=== PATIENT | male | born 1955 | race Caucasian/White ===

== ENCOUNTER 2018-10-20 17:37 | Inpatient (IN) | payer MEDICARE ==
[2018-10-20] VITALS (10 sets, daily range): BP systolic 80–103; BP diastolic 61–74
[~2018-10-20] VITALS: Ht 182.9 cm; Wt 80.4 kg
[~2018-10-20 17:37] MED LIST: AC325T PO; ALPR.25T PO; ASP81TEC PO; CARB1TAB6 PO; CTLP20T PO; DICL100G20 TP; DNPZ5T PO; FOLI1TAB24 PO; GBPN400C PO; LEVO200T30 PO; LEVO50TA PO; LVT.025T PO; LVT.05T PO; LVT.1T PO; MAGN400C PO; MEMA10TA PO; METR500T PO; MTP25TSR PO; MULT1TAB53 PO; Multivitamins/Minerals Therap PO; NAPR250T34 PO; OMEG-12 PO; PROP10DR2 OP; RPN.25T PO; SILD50TA PO; TAMS0.4C98 PO; THIA100T80 PO; TRAM50TA2 PO
[2018-10-20] MEDS: NS IV 1000 ML 1,000 ML IV SCH ×3 (17:40→22:32)
--- NOTE | 2018-10-20 17:40 | NUR ---
This nurse and tech have tried multiple times to get an EKG on pt unable to get a reading.
--- OUTSIDE RECORDS SUMMARY | 2018-10-20 17:41 | XMS REPORT ---
Author Author GUTIERREZ WOODSON Organization [employer] Address Unknown Phone Unavailable Care Team Providers Care Dictionary Editor Name Role Phone GUTIERREZ WOODSON CP Unavailable Allergies No Known Allergies Problems Problem Type Condition Code Onset Dates Condition Status Problem Hypothyroidism, unspecified type E03.9 Active Problem Alcoholism F10.20 Active Problem Alcoholic peripheral neuropathy G62.1 Active Medications No Known Medications Results No Known Results Summary Purpose [employer] Submission
--- OUTSIDE RECORDS SUMMARY | 2018-10-20 17:41 | XMS REPORT ---
Author Author GUTIERREZ WOODSON [facility] Address [address] [place] [address] Care Team Providers Care Capping Machine Operator Name Role Phone GUTIERREZ WOODSON Unavailable PROBLEMS Unknown Problems ALLERGIES Unknown Allergies SOCIAL HISTORY No smoking Hx information available PLAN OF CARE VITAL SIGNS MEDICATIONS Unknown Medications RESULTS No Results PROCEDURES No Known procedures IMMUNIZATIONS No Known Immunizations
--- OUTSIDE RECORDS SUMMARY | 2018-10-20 17:41 | XMS REPORT ---
Author Author GUTIERREZ WOODSON Organization [employer] Address Unknown Phone Unavailable Care Team Providers Care Diesel Mechanic Farm Name Role Phone GUTIERREZ WOODSON CP Unavailable Allergies No Known Allergies Problems Problem Type Condition Code Onset Dates Condition Status Problem Hypothyroidism, unspecified type E03.9 Active Problem Alcoholism F10.20 Active Problem Alcoholic peripheral neuropathy G62.1 Active Assessment Alcoholism F10.20 Active Assessment Alcoholic peripheral neuropathy G62.1 Active Assessment Hypothyroidism, unspecified type E03.9 Active Medications No Known Medications Procedures Procedure Coding System Code Date Stable Visit (10 minutes) CPT-[id number] Jul 10, 2016 Results No Known Results Summary Purpose [employer] Submission
--- OUTSIDE RECORDS SUMMARY | 2018-10-20 17:41 | XMS REPORT ---
Author Author SANJAY ENRIQUEZ [facility] Address [address] [place] [address] Care Team Providers Care Warehouse Incentive Selector Name Role Phone SANJAY ENRIQUEZ Unavailable PROBLEMS Unknown Problems ALLERGIES Unknown Allergies SOCIAL HISTORY No smoking Hx information available PLAN OF CARE VITAL SIGNS MEDICATIONS Unknown Medications RESULTS No Results PROCEDURES No Known procedures IMMUNIZATIONS No Known Immunizations
--- OUTSIDE RECORDS SUMMARY | 2018-10-20 17:41 | XMS REPORT ---
Author Author GUTIERREZ WOODSON Organization [employer] Address Unknown Phone Unavailable Care Team Providers Care Commercial Artist Name Role Phone GUTIERREZ WOODSON CP Unavailable Allergies No Known Allergies Problems Problem Type Condition Code Onset Dates Condition Status Problem Hypothyroidism, unspecified type E03.9 Active Problem Alcoholism F10.20 Active Problem Alcoholic peripheral neuropathy G62.1 Active Medications No Known Medications Results No Known Results Summary Purpose [employer] Submission
--- OUTSIDE RECORDS SUMMARY | 2018-10-20 17:42 | XMS REPORT | Continuity of Care Document ---
Author Author [facility] Address Unknown Phone Unavailable Allergies Active Description Code Type Severity Reaction Onset Reported/Identified Relationship to Patient Clinical Status Yes Celexa Drug Allergy 06/11/2011 Yes Celexa Drug Allergy N/A N/A 06/11/2011 Yes No Known Drug Allergies [id number] Drug Allergy Unknown N/A 09/17/2012 Medications There is no data. Problems Date Dx Coded Attending Type Code Diagnosis Diagnosed By 05/01/2008 244.9 Hypothyroidism Subclinical 05/01/2008 244.9 Hypothyroidism Subclinical 05/01/2008 244.9 Hypothyroidism Subclinical 05/01/2008 GUTIERREZ WOODSON MD 244.9 Hypothyroidism Subclinical 05/01/2008 GERDA NIETO APRN 244.9 Hypothyroidism Subclinical 05/01/2008 GERDA NIETO APRN 244.9 Hypothyroidism Subclinical 05/01/2008 244.9 Hypothyroidism Subclinical 12/27/2008 302.72 Male Erectile Disorder 12/27/2008 302.72 Male Erectile Disorder 12/27/2008 302.72 Male Erectile Disorder 12/27/2008 GUTIERREZ WOODSON MD 302.72 Male Erectile Disorder 12/27/2008 GERDA NIETO APRN 302.72 Male Erectile Disorder 12/27/2008 GERDA NIETO APRN 302.72 Male Erectile Disorder 12/27/2008 302.72 Male Erectile Disorder 03/26/2011 303.91 Other And Unspecified Alcohol Dependence Continuous Drinking Behavior 03/26/2011 305.1 Nondependent Tobacco Use Disorder 03/26/2011 724.5 BACK PAIN, GENERAL 03/26/2011 303.91 Other And Unspecified Alcohol Dependence Continuous Drinking Behavior 03/26/2011 305.1 Nondependent Tobacco Use Disorder 03/26/2011 724.5 BACK PAIN, GENERAL 03/26/2011 303.91 Other And Unspecified Alcohol Dependence Continuous Drinking Behavior 03/26/2011 305.1 Nondependent Tobacco Use Disorder 03/26/2011 724.5 BACK PAIN, GENERAL 03/26/2011 GUTIERREZ WOODSON MD 303.91 Other And Unspecified Alcohol Dependence Continuous Drinking Behavior 03/26/2011 GUTIERREZ WOODSON MD 305.1 Nondependent Tobacco Use Disorder 03/26/2011 GUTIERREZ WOODSON MD 724.5 BACK PAIN, GENERAL 03/26/2011 EMILIA NORMAN, GERDA R 303.91 Other And Unspecified Alcohol Dependence Continuous Drinking Behavior 03/26/2011 EMILIA NORMAN, GERDA R 305.1 Nondependent Tobacco Use Disorder 03/26/2011 EMILIA NORMAN GERDA R 724.5 BACK PAIN, GENERAL 03/26/2011 EMILIA NORMAN, GERDA R 303.91 Other And Unspecified Alcohol Dependence Continuous Drinking Behavior 03/26/2011 EMILIA NORMAN GERDA R 305.1 Nondependent Tobacco Use Disorder 03/26/2011 EMILIA NORMAN GERDA R 724.5 BACK PAIN, GENERAL 03/26/2011 303.91 Other And Unspecified Alcohol Dependence Continuous Drinking Behavior 03/26/2011 305.1 Nondependent Tobacco Use Disorder 03/26/2011 724.5 BACK PAIN, GENERAL 04/17/2011 311 MO DEPRESS NOS 04/17/2011 790.6 Abnormal Lft ( liver Function Test) 04/17/2011 311 MO DEPRESS NOS 04/17/2011 790.6 Abnormal Lft ( liver Function Test) 04/17/2011 311 MO DEPRESS NOS 04/17/2011 790.6 Abnormal Lft ( liver Function Test) 04/17/2011 GUTIERREZ WOODSON MD 311 MO DEPRESS NOS 04/17/2011 GUTIERREZ WOODSON MD 790.6 Abnormal Lft (liver Function Test) 04/17/2011 EMILIA NORMAN GERDA R 311 MO DEPRESS NOS 04/17/2011 EMILIA NORMAN GERDA R 790.6 Abnormal Lft (liver Function Test) 04/17/2011 EMILIA NORMAN GERDA R 311 MO DEPRESS NOS 04/17/2011 EMILIA NORMAN GERDA R 790.6 Abnormal Lft (liver Function Test) 04/17/2011 311 MO DEPRESS NOS 04/17/2011 790.6 Abnormal Lft ( liver Function Test) 05/10/2011 296.90 MOOD DISORDER 05/10/2011 296.90 MOOD DISORDER 05/10/2011 296.90 MOOD DISORDER 05/10/2011 GUTIERREZ WOODSON MD 296.90 MOOD DISORDER 05/10/2011 MARGARET NIETO APRNINA R 296.90 MOOD DISORDER 05/10/2011 EMILIA NORMAN, GERDA R 296.90 MOOD DISORDER 05/10/2011 296.90 MOOD DISORDER 06/11/2011 458.0 Orthostatic Hypotension 06/11/2011 458.0 Orthostatic Hypotension 06/11/2011 458.0 Orthostatic Hypotension 06/11/2011 GUTIERREZ WOODSON MD 458.0 Orthostatic Hypotension 06/11/2011 GERDA NIETO APRN R 458.0 Orthostatic Hypotension 06/11/2011 MARGARET NIETO APRNINA R 458.0 Orthostatic Hypotension 06/11/2011 458.0 Orthostatic Hypotension 08/13/2011 722.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 08/13/2011 722.6 Degeneration Of Intervertebral Disc Site Unspecified 08/13/2011 722.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 08/13/2011 722.6 Degeneration Of Intervertebral Disc Site Unspecified 08/13/2011 722.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 08/13/2011 722.6 Degeneration Of Intervertebral Disc Site Unspecified 08/13/2011 GUTIERREZ WOODSON MD 722.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 08/13/2011 GUTIERREZ WOODSON MD 722.6 Degeneration Of Intervertebral Disc Site Unspecified 08/13/2011 EMILIA NORMAN GERDA R 722.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 08/13/2011 EMILIA NORMAN GERDA R 722.6 Degeneration Of Intervertebral Disc Site Unspecified 08/13/2011 MARGARET NIETO APRNINA R 722.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 08/13/2011 EMILIA NORMAN GERDA R 722.6 Degeneration Of Intervertebral Disc Site Unspecified 08/13/2011 722.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 08/13/2011 722.6 Degeneration Of Intervertebral Disc Site Unspecified 09/16/2011 V68.1 Issue Of Repeat Prescriptions 09/16/2011 V68.1 Issue Of Repeat Prescriptions 09/16/2011 V68.1 Issue Of Repeat Prescriptions 09/16/2011 GUTIERREZ WOODSON MD V68.1 Issue Of Repeat Prescriptions 09/16/2011 GERDA NIETO APRN R V68.1 Issue Of Repeat Prescriptions 09/16/2011 GERDA NIETO APRN R V68.1 Issue Of Repeat Prescriptions 09/16/2011 V68.1 Issue Of Repeat Prescriptions 03/09/2012 719.46 Pain In Joint Involving Lower Leg 03/09/2012 719.46 Pain In Joint Involving Lower Leg 03/09/2012 719.46 Pain In Joint Involving Lower Leg 03/09/2012 GUTIERREZ WOODSON MD 719.46 Pain In Joint Involving Lower Leg 03/09/2012 GERDA NIETO APRN 719.46 Pain In Joint Involving Lower Leg 03/09/2012 GERDA NIETO APRN 719.46 Pain In Joint Involving Lower Leg 03/09/2012 719.46 Pain In Joint Involving Lower Leg 06/22/2012 244.9 UNSPECIFIED ACQUIRED HYPOTHYROIDISM 06/22/2012 372.30 CONJUNCTIVITIS UNSPECIFIED 06/22/2012 244.9 UNSPECIFIED ACQUIRED HYPOTHYROIDISM 06/22/2012 372.30 CONJUNCTIVITIS UNSPECIFIED 06/22/2012 244.9 UNSPECIFIED ACQUIRED HYPOTHYROIDISM 06/22/2012 372.30 CONJUNCTIVITIS UNSPECIFIED 06/22/2012 GUTIERREZ WOODSON MD 244.9 UNSPECIFIED ACQUIRED HYPOTHYROIDISM 06/22/2012 GUTIERREZ WOODSON MD 372.30 CONJUNCTIVITIS UNSPECIFIED 06/22/2012 GERDA NIETO APRN 244.9 UNSPECIFIED ACQUIRED HYPOTHYROIDISM 06/22/2012 GERDA NIETO APRN 372.30 CONJUNCTIVITIS UNSPECIFIED 06/22/2012 GERDA NIETO APRN 244.9 UNSPECIFIED ACQUIRED HYPOTHYROIDISM 06/22/2012 GERDA NIETO APRN 372.30 CONJUNCTIVITIS UNSPECIFIED 06/22/2012 244.9 UNSPECIFIED ACQUIRED HYPOTHYROIDISM 06/22/2012 372.30 CONJUNCTIVITIS UNSPECIFIED 09/22/2012 Ot 008.45 INTESTINAL INFECTION DUE TO CLOSTRIDIUM 09/22/2012 Ot 244.9 HYPOTHYROIDISM NOS 09/22/2012 Ot 275.2 DIS MAGNESIUM METABOLISM 09/22/2012 Ot 276.2 ACIDOSIS 09/22/2012 Ot 276.51 DEHYDRATION 09/22/2012 Ot 276.8 HYPOPOTASSEMIA 09/22/2012 Ot 284.19 OTHER PANCYTOPENIA 09/22/2012 Ot 305.1 TOBACCO USE DISORDER 09/22/2012 Ot 790.6 ABN BLOOD CHEMISTRY NEC 10/25/2012 Ot 244.9 HYPOTHYROIDISM NOS 10/25/2012 Ot 275.2 DIS MAGNESIUM METABOLISM 10/25/2012 Ot 276.8 HYPOPOTASSEMIA 10/25/2012 Ot 285.9 ANEMIA NOS 10/25/2012 Ot 458.0 ORTHOSTATIC HYPOTENSION 10/25/2012 Ot 593.89 RENAL URETERAL DIS NEC 10/25/2012 Ot 733.19 PATHOLOGIC FRACTURE, SITE NEC 10/25/2012 Ot 780.79 OTH MALAISE FATIGUE 11/03/2012 Ot 244.9 HYPOTHYROIDISM NOS 11/03/2012 Ot 275.2 DIS MAGNESIUM METABOLISM 11/03/2012 Ot 276.1 HYPOSMOLALITY 11/03/2012 Ot 276.8 HYPOPOTASSEMIA 11/03/2012 Ot 285.9 ANEMIA NOS 11/03/2012 Ot 305.00 ALCOHOL ABUSE-UNSPEC 11/03/2012 Ot 799.3 DEBILITY NOS 11/03/2012 Ot V15.88 HISTORY OF FALL 11/03/2012 Ot V54.29 [facility] PATHOLOGIC FX OTHER KARELY 11/03/2012 Ot V57.1 PHYSICAL THERAPY NEC 11/03/2012 Ot V57.21 ENCOUNTER FOR OCCUPATIONAL THERAPY 01/08/2013 Ot 303.00 AC ALCOHOL INTOX-UNSPEC 01/08/2013 Ot V58.69 OTH MED,LT, CURRENT USE 03/31/2013 599.70 HEMATURIA 03/31/2013 728.87 WEAKNESS 03/31/2013 783.21 WEIGHT LOSS 03/31/2013 799.02 HYPOXIA 03/31/2013 GUTIERREZ WOODSON MD 599.70 HEMATURIA 03/31/2013 GUTIERREZ WOODSON MD 728.87 WEAKNESS 03/31/2013 GUTIERREZ WOODSON MD 783.21 WEIGHT LOSS 03/31/2013 GUTIERREZ WOODSON MD 799.02 HYPOXIA 03/31/2013 GERDA NIETO APRN R 599.70 HEMATURIA 03/31/2013 EMILIA NORMAN GERDA R 728.87 WEAKNESS 03/31/2013 EMILIA NORMAN GERDA R 783.21 WEIGHT LOSS 03/31/2013 MARGARET NIETO APRNINA R 799.02 HYPOXIA 03/31/2013 GERDA NIETO APRN R 599.70 HEMATURIA 03/31/2013 EMILIA NORMAN GERDA R 728.87 WEAKNESS 03/31/2013 GERDA NIETO APRN R 783.21 WEIGHT LOSS 03/31/2013 GERDA NIETO APRN R 799.02 HYPOXIA 04/06/2013 GUTIERREZ WOODSON MD Ot 244.9 HYPOTHYROIDISM NOS 04/06/2013 GUTIERREZ WOODSON MD Ot 276.1 HYPOSMOLALITY 04/06/2013 GUTIERREZ WOODSON MD Ot 276.8 HYPOPOTASSEMIA 04/06/2013 GUTIERREZ WOODSON MD Ot 303.90 ALCOH DEP NEC/NOS-UNSPEC 04/06/2013 GUTIERREZ WOODSON MD Ot 357.5 ALCOHOLIC POLYNEUROPATHY 04/14/2013 357.5 ALCOHOLIC POLYNEUROPATHY 04/14/2013 GUTIERREZ WOODSON MD 357.5 ALCOHOLIC POLYNEUROPATHY 04/14/[address] COMMISSIONER, GERDA R 357.5 ALCOHOLIC POLYNEUROPATHY 04/14/[address] COMMISSIONER, GERDA R 357.5 ALCOHOLIC POLYNEUROPATHY 07/07/2016 Ot 305.1 TOBACCO USE DISORDER 07/07/2016 Ot 722.10 LUMBAR DISC DISPLACEMENT 07/07/2016 Ot 722.52 LUMB/ LUMBOSAC DISC DEGEN 07/07/2016 Ot 729.5 PAIN IN LIMB 07/07/2016 Ot 785.9 CARDIOVAS SYS SYMP NEC 07/07/2016 SANJAY BENAVIDES MD Ot D61.818 OTHER PANCYTOPENIA 07/07/2016 SANJAY BENAVIDES MD Ot E03.9 HYPOTHYROIDISM, UNSPECIFIED 07/07/2016 SANJAY BENAVIDES MD Ot 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 07/07/2016 SANJAY BENAVIDES MD Ot F10.20 ALCOHOL DEPENDENCE, UNCOMPLICATED 07/07/2016 SANJAY BENAVIDES MD Ot F10.239 ALCOHOL DEPENDENCE WITH WITHDRAWAL, UNSP 07/07/2016 SANJAY BENAVIDES MD Ot F17.210 NICOTINE DEPENDENCE, CIGARETTES, UNCOMPL 07/07/2016 SANJAY BENAVIDES MD Ot K70.9 ALCOHOLIC LIVER DISEASE, UNSPECIFIED 07/07/2016 SANJAY BENAVIDES MD Ot N40.1 ENLARGED PROSTATE WITH LOWER URINARY TRA 07/07/2016 SANJAY BENAVIDES MD Ot R33.8 OTHER RETENTION OF URINE 07/07/2016 SANJAY BENAVIDES MD Ot R64 CACHEXIA 07/07/2016 SANJAY BENAVIDES MD Ot S40.021A CONTUSION OF RIGHT UPPER ARM, INITIAL EN 07/07/2016 SANJAY BENAVIDES MD Ot S40.022A CONTUSION OF LEFT UPPER ARM, INITIAL ENC 07/07/2016 SANJAY BENAVIDES MD Ot S60.221A CONTUSION OF RIGHT HAND, INITIAL ENCOUNT 07/07/2016 SANJAY BENAVIDES MD Ot S60.222A CONTUSION OF LEFT HAND, INITIAL ENCOUNTE 07/07/2016 SANJAY BENAVIDES MD Ot W19.XXXA UNSPECIFIED FALL, INITIAL ENCOUNTER 07/07/2016 SANJAY BENAVIDES MD Ot Y92.[address] [facility] NON-INSTITUTIONAL RESI Procedures Code Description [place] [address] ROUTINE VENIPUNCTURE 08/01/2013 34808 CMP 08/02/2013 7923630 GFR CALC (RESULT ONLY) 08/02/2013 04224 TSH 08/02/2013 57637 ROUTINE VENIPUNCTURE 04/11/2014 [id number] GFR CALC (RESULT ONLY) 04/12/2014 62873 BMP 04/12/2014 42488 T4 FREE 04/12/2014 57126 TSH 04/12/2014 19261 T3 TOTAL 04/12/2014 Results Test Result Range Complete blood count (CBC) with automated white blood cell (WBC) differential - 07/03/16 19:21 Blood leukocytes automated count (number/volume) 4.1 10*3/uL 4.3-11.0 Blood erythrocytes automated count (number/volume) 2.32 10*6/uL 4.35-5.85 Venous blood hemoglobin measurement (mass/volume) 7.5 g/dL 13.3-17.7 Blood hematocrit (volume fraction) 22 % 40-54 Automated erythrocyte mean corpuscular volume 94 [foz_us] 80-99 Automated erythrocyte mean corpuscular hemoglobin (mass per erythrocyte) 32 pg 25-34 Automated erythrocyte mean corpuscular hemoglobin concentration measurement ( mass/volume) 35 g/dL 32-36 Automated erythrocyte distribution width ratio 17.4 % 10.0-14.5 Automated blood platelet count (count/volume) 115 10*3/uL 130-400 Automated blood platelet mean volume measurement 9.4 [foz_us] 7.4-10.4 Automated blood neutrophils/100 leukocytes 42 % 42-75 Automated blood lymphocytes/100 leukocytes 49 % 12-44 Blood monocytes/100 leukocytes 5 % 0-12 Automated blood eosinophils/100 leukocytes 3 % 0-10 Automated blood basophils/100 leukocytes 1 % 0-10 Blood neutrophils automated count (number/volume) 1.7 10*3 1.8-7.8 Blood lymphocytes automated count (number/volume) 2.0 10*3 1.0-4.0 Blood monocytes automated count (number/volume) 0.2 10*3 0.0-1.0 Automated eosinophil count 0.1 10*3/uL 0.0-0.3 Automated blood basophil count (count/volume) 0.0 10*3/uL 0.0-0.1 PT panel in platelet poor plasma by coagulation assay - 07/03/16 19:21 Prothrombin time (PT) in platelet poor plasma by coagulation assay 13.5 s 12.2-14.7 INR in platelet poor plasma or blood by coagulation assay 1.1 0.8-1.4 Activated partial thromboplastin time (aPTT) in platelet poor plasma bycoagulation assay - 07/03/16 19:21 Activated partial thromboplastin time (aPTT) in platelet poor plasma bycoagulation assay 37 s 24-35 Comprehensive metabolic panel - 07/03/16 19:21 Serum or plasma sodium measurement (moles/volume) 134 mmol/L 135-145 Serum or plasma potassium measurement (moles/volume) 4.0 mmol/L 3.6-5.0 Serum or plasma chloride measurement (moles/volume) 95 mmol/L 98-107 Carbon dioxide 21 mmol/L 21-32 Serum or plasma anion gap determination (moles/volume) 18 mmol/L 5-14 Serum or plasma urea nitrogen measurement (mass/volume) 15 mg/dL 7-18 Serum or plasma creatinine measurement (mass/volume) 1.19 mg/dL 0.60-1.30 Serum or plasma urea nitrogen/creatinine mass ratio 13 NRG Serum or plasma creatinine measurement with calculation of estimated glomerular filtration rate > NRG Serum or plasma glucose measurement (mass/volume) 86 mg/dL 70-105 Serum or plasma calcium measurement (mass/volume) 8.7 mg/dL 8.5-10.1 Serum or plasma total bilirubin measurement (mass/volume) 1.8 mg/dL 0.1-1.0 Serum or plasma alkaline phosphatase measurement (enzymatic activity/volume) 62 U/L 40-136 Serum or plasma aspartate aminotransferase measurement (enzymatic activity/ volume) 30 U/L 5-34 Serum or plasma alanine aminotransferase measurement (enzymatic activity/volume ) 11 U/L 0-55 Serum or plasma protein measurement (mass/volume) 7.0 g/dL 6.4-8.2 Serum or plasma albumin measurement (mass/volume) 4.3 g/dL 3.2-4.5 Magnesium - 07/03/16 19:21 Magnesium 1.8 mg/dL 1.8-2.4 Serum or plasma creatine kinase measurement (enzymatic activity/volume) - 07/03 19:21 Serum or plasma creatine kinase measurement (enzymatic activity/volume) 221 U/L 30-200 Serum or plasma amylase measurement (enzymatic activity/volume) - 07/03/16 19: 21 Serum or plasma amylase measurement (enzymatic activity/volume) 120 U/L 25-125 Lipase - 07/03/16 19:21 Lipase 38 U/L 8-78 Serum or plasma ethanol measurement (mass/volume) - 07/03/16 19:21 Serum or plasma ethanol measurement (mass/volume) 10 mg/dL <10 Serum or plasma creatine kinase MB measurement (enzymatic activity/volume) - 19:21 Serum or plasma creatine kinase MB measurement (enzymatic activity/volume) 2.5 ng/mL <6.6 Serum or plasma troponin i.cardiac measurement (mass/volume) - 07/03/16 19:21 Serum or plasma troponin i.cardiac measurement (mass/volume) < ng/ mL <0.30 Serum or plasma thyroxine (T4) free measurement (mass/volume) - 07/03/16 19:21 Serum or plasma thyroxine (T4) free measurement (mass/volume) < ng/ dL 0.70-1.48 Serum or plasma thyrotropin measurement by detection limit <=0.05 miu/l (units/ volume) - 07/03/16 19:21 Serum or plasma thyrotropin measurement by detection limit <=0.05 miu/l (units/ volume) 176.14 u[iU]/mL 0.35-4.94 RED CELLS LEUKO REDUCED AS1 - 07/03/16 20:52 RED CELLS LEUKO REDUCED AS1 NOT AVAILABLE NRG Blood type T Indirect antibody screen panel - 07/03/16 20:52 ABO+Rh group AP NRG Transfusion band number [id number] NRG Blood group antibody screen NEGATIVE NRG Urine drug screening test - 07/03/16 21:01 Urine phencyclidine detection by screening method NEGATIVE NEGATIVE Urine benzodiazepines detection by screening method NEGATIVE NEGATIVE Urine cocaine detection NEGATIVE NEGATIVE Urine amphetamines detection by screening method NEGATIVE NEGATIVE Urine methamphetamine detection by screening method NEGATIVE NEGATIVE Urine cannabinoids detection by screening method NEGATIVE NEGATIVE Urine opiates detection by screening method NEGATIVE NEGATIVE Urine barbiturates detection NEGATIVE NEGATIVE Screening urine tricyclic antidepressants detection NEGATIVE NEGATIVE Urine methadone detection by screening method NEGATIVE NEGATIVE Urine oxycodone detection NEGATIVE NEGATIVE Urine propoxyphene detection NEGATIVE NEGATIVE Urine buprenophrine screen NEGATIVE NEGATIVE Complete urinalysis with reflex to culture - 07/03/16 21:01 Urine color determination TAJ NRG Urine clarity determination CLEAR NRG Urine pH measurement by test strip 6 5-9 Specific gravity of urine by test strip 1.020 1.016- 1.022 Urine protein assay by test strip, semi-quantitative 1+ NEGATIVE Urine glucose detection by automated test strip NEGATIVE NEGATIVE Erythrocytes detection in urine sediment by light microscopy 2+ NEGATIVE Urine ketones detection by automated test strip 2+ NEGATIVE Urine nitrite detection by test strip POSITIVE NEGATIVE Urine total bilirubin detection by test strip 2+ NEGATIVE Urine urobilinogen measurement by automated test strip (mass/volume) 8 mg/dL NORMAL Urine leukocyte esterase detection by dipstick 1+ NEGATIVE Automated urine sediment erythrocyte count by microscopy (number/high power field) [HPF] NRG Automated urine sediment leukocyte count by microscopy (number/high power field ) [HPF] NRG Bacteria detection in urine sediment by light microscopy NEGATIVE NRG Crystals detection in urine sediment by light microscopy NONE NRG Casts detection in urine sediment by light microscopy PRESENT NRG Mucus detection in urine sediment by light microscopy MODERATE NRG Complete urinalysis with reflex to culture YES NRG Hyaline casts detection in urine sediment by light microscopy 5-10 NRG Bacterial urine culture - 07/03/16 21:01 Bacterial urine culture NG NRG Complete blood count (CBC) with automated white blood cell (WBC) differential - 07/04/16 06:52 Blood leukocytes automated count (number/volume) 2.8 10*3/uL 4.3-11.0 Blood erythrocytes automated count (number/volume) 2.92 10*6/uL 4.35-5.85 Venous blood hemoglobin measurement (mass/volume) 9.3 g/dL 13.3-17.7 Blood hematocrit (volume fraction) 26 % 40-54 Automated erythrocyte mean corpuscular volume 89 [foz_us] 80-99 Automated erythrocyte mean corpuscular hemoglobin (mass per erythrocyte) 32 pg 25-34 Automated erythrocyte mean corpuscular hemoglobin concentration measurement ( mass/volume) 36 g/dL 32-36 Automated erythrocyte distribution width ratio 17.6 % 10.0-14.5 Automated blood platelet count (count/volume) 85 10*3/uL 130-400 Automated blood platelet mean volume measurement 10.1 [foz_us] 7.4-10.4 Automated blood neutrophils/100 leukocytes 42 % 42-75 Automated blood lymphocytes/100 leukocytes 50 % 12-44 Blood monocytes/100 leukocytes 5 % 0-12 Automated blood eosinophils/100 leukocytes 3 % 0-10 Automated blood basophils/100 leukocytes 1 % 0-10 Blood neutrophils automated count (number/volume) 1.2 10*3 1.8-7.8 Blood lymphocytes automated count (number/volume) 1.4 10*3 1.0-4.0 Blood monocytes automated count (number/volume) 0.1 10*3 0.0-1.0 Automated eosinophil count 0.1 10*3/uL 0.0-0.3 Automated blood basophil count (count/volume) 0.0 10*3/uL 0.0-0.1 Comprehensive metabolic panel - 07/04/16 06:52 Serum or plasma sodium measurement (moles/volume) 134 mmol/L 135-145 Serum or plasma potassium measurement (moles/volume) 3.4 mmol/L 3.6-5.0 Serum or plasma chloride measurement (moles/volume) 100 mmol/L 98-107 Carbon dioxide 20 mmol/L 21-32 Serum or plasma anion gap determination (moles/volume) 14 mmol/L 5-14 Serum or plasma urea nitrogen measurement (mass/volume) 14 mg/dL 7-18 Serum or plasma creatinine measurement (mass/volume) 1.03 mg/dL 0.60-1.30 Serum or plasma urea nitrogen/creatinine mass ratio 14 NRG Serum or plasma creatinine measurement with calculation of estimated glomerular filtration rate > NRG Serum or plasma glucose measurement (mass/volume) 108 mg/dL 70-105 Serum or plasma calcium measurement (mass/volume) 7.9 mg/dL 8.5-10.1 Serum or plasma total bilirubin measurement (mass/volume) 2.2 mg/dL 0.1-1.0 Serum or plasma alkaline phosphatase measurement (enzymatic activity/volume) 53 U/L 40-136 Serum or plasma aspartate aminotransferase measurement (enzymatic activity/ volume) 26 U/L 5-34 Serum or plasma alanine aminotransferase measurement (enzymatic activity/volume ) 9 U/L 0-55 Serum or plasma protein measurement (mass/volume) 6.1 g/dL 6.4-8.2 Serum or plasma albumin measurement (mass/volume) 3.7 g/dL 3.2-4.5 PT panel in platelet poor plasma by coagulation assay - 07/05/16 12:54 Prothrombin time (PT) in platelet poor plasma by coagulation assay 13.9 s 12.2-14.7 INR in platelet poor plasma or blood by coagulation assay 1.1 0.8-1.4 Activated partial thromboplastin time (aPTT) in platelet poor plasma bycoagulation assay - 07/05/16 12:54 Activated partial thromboplastin time (aPTT) in platelet poor plasma bycoagulation assay 41 s 24-35 Human immunodeficiency virus (HIV) type 1 and 2 antibody detection - 07/05/16 12:54 Serum HIV 1+2 antibody detection by immunoblot Non-Reactive Non-Reactive Interpretation of HIV-1 and HIV-2 antibody assay See Footnote [facility] Automated blood complete blood count (hemogram) panel - 07/06/16 05:05 Blood leukocytes automated count (number/volume) 2.6 10*3/uL 4.3-11.0 Blood erythrocytes automated count (number/volume) 2.46 10*6/uL 4.35-5.85 Venous blood hemoglobin measurement (mass/volume) 7.8 g/dL 13.3-17.7 Blood hematocrit (volume fraction) 22 % 40-54 Automated erythrocyte mean corpuscular volume 87 [foz_us] 80-99 Automated erythrocyte mean corpuscular hemoglobin (mass per erythrocyte) 32 pg 25-34 Automated erythrocyte mean corpuscular hemoglobin concentration measurement ( mass/volume) 36 g/dL 32-36 Automated erythrocyte distribution width ratio 17.6 % 10.0-14.5 Automated blood platelet count (count/volume) 53 10*3/uL 130-400 Automated blood platelet mean volume measurement 9.1 [foz_us] 7.4-10.4 [id number] - 07/06/16 05:05 [id number] SPECIMEN AVAILABLE [facility] Comprehensive metabolic panel - 07/06/16 05:05 Serum or plasma sodium measurement (moles/volume) 130 mmol/L 135-145 Serum or plasma potassium measurement (moles/volume) 3.9 mmol/L 3.6-5.0 Serum or plasma chloride measurement (moles/volume) 104 mmol/L 98-107 Carbon dioxide 18 mmol/L 21-32 Serum or plasma anion gap determination (moles/volume) 8 mmol/L 5-14 Serum or plasma urea nitrogen measurement (mass/volume) 7 mg/dL 7-18 Serum or plasma creatinine measurement (mass/volume) 0.81 mg/dL 0.60-1.30 Serum or plasma urea nitrogen/creatinine mass ratio 9 NRG Serum or plasma creatinine measurement with calculation of estimated glomerular filtration rate > NRG Serum or plasma glucose measurement (mass/volume) 97 mg/dL 70-105 Serum or plasma calcium measurement (mass/volume) 7.5 mg/dL 8.5-10.1 Serum or plasma total bilirubin measurement (mass/volume) 1.1 mg/dL 0.1-1.0 Serum or plasma alkaline phosphatase measurement (enzymatic activity/volume) 40 U/L 40-136 Serum or plasma aspartate aminotransferase measurement (enzymatic activity/ volume) 21 U/L 5-34 Serum or plasma alanine aminotransferase measurement (enzymatic activity/volume ) 8 U/L 0-55 Serum or plasma protein measurement (mass/volume) 4.7 g/dL 6.4-8.2 Serum or plasma albumin measurement (mass/volume) 2.9 g/dL 3.2-4.5 Automated blood complete blood count (hemogram) panel - 07/07/16 05:53 Blood leukocytes automated count (number/volume) 2.4 10*3/uL 4.3-11.0 Blood erythrocytes automated count (number/volume) 2.49 10*6/uL 4.35-5.85 Venous blood hemoglobin measurement (mass/volume) 7.8 g/dL 13.3-17.7 Blood hematocrit (volume fraction) 22 % 40-54 Automated erythrocyte mean corpuscular volume 88 [foz_us] 80-99 Automated erythrocyte mean corpuscular hemoglobin (mass per erythrocyte) 31 pg 25-34 Automated erythrocyte mean corpuscular hemoglobin concentration measurement ( mass/volume) 36 g/dL 32-36 Automated erythrocyte distribution width ratio 17.4 % 10.0-14.5 Automated blood platelet count (count/volume) 52 10*3/uL 130-400 Automated blood platelet mean volume measurement 10.5 [foz_us] 7.4-10.4 Comprehensive metabolic panel - 07/07/16 05:53 Serum or plasma sodium measurement (moles/volume) 132 mmol/L 135-145 Serum or plasma potassium measurement (moles/volume) 3.7 mmol/L 3.6-5.0 Serum or plasma chloride measurement (moles/volume) 104 mmol/L 98-107 Carbon dioxide 17 mmol/L 21-32 Serum or plasma anion gap determination (moles/volume) 11 mmol/L 5-14 Serum or plasma urea nitrogen measurement (mass/volume) 5 mg/dL 7-18 Serum or plasma creatinine measurement (mass/volume) 0.82 mg/dL 0.60-1.30 Serum or plasma urea nitrogen/creatinine mass ratio 6 NRG Serum or plasma creatinine measurement with calculation of estimated glomerular filtration rate > NRG Serum or plasma glucose measurement (mass/volume) 88 mg/dL 70-105 Serum or plasma calcium measurement (mass/volume) 8.0 mg/dL 8.5-10.1 Serum or plasma total bilirubin measurement (mass/volume) 1.0 mg/dL 0.1-1.0 Serum or plasma alkaline phosphatase measurement (enzymatic activity/volume) 49 U/L 40-136 Serum or plasma aspartate aminotransferase measurement (enzymatic activity/ volume) 28 U/L 5-34 Serum or plasma alanine aminotransferase measurement (enzymatic activity/volume ) 12 U/L 0-55 Serum or plasma protein measurement (mass/volume) 5.1 g/dL 6.4-8.2 Serum or plasma albumin measurement (mass/volume) 3.2 g/dL 3.2-4.5 Encounters ACCT No. Visit Date/Time Discharge Status Pt. Type Provider Facility Loc./Unit Complaint [id number] 04/11/2014 15:20:00 04/11/2014 23:59:59 CLS Outpatient GERDA NIETO APRN [id number] 03/24/2014 11:12:00 03/24/2014 23:59:59 CLS Outpatient GERDA NIETO APRN [id number] 08/01/2013 15:43:00 08/01/2013 23:59:59 CLS Outpatient GUTIERREZ WOODSON MD [id number] 10/18/2012 07:53:00 10/18/2012 23:59:59 CLS Outpatient [id number] 06/22/2012 16:49:00 06/22/2012 23:59:59 CLS Outpatient [id number] 04/19/2013 09:26:00 Document Registration [id number] 11/23/2012 11:34:00 Document Registration [id number] 07/03/2016 21:19:00 07/07/2016 13:25:00 DIS Inpatient KENNEDY VELÁSQUEZ, SANJAY Malagon [facility] 4TH ANEMIA,HYPOTENSION, ALCOHOLISM,HYPOTHYROIDISM [id number] 03/31/2013 12:39:00 04/06/2013 16:10:00 DIS Inpatient CHINTAN VELÁSQUEZ, GUTIERREZ Murray [facility] 4TH HYPOXIA,GENERALIZED WEAKNESS [id number] 01/08/2013 13:59:00 Document Registration [id number] 10/25/2012 11:20:00 Document Registration [id number] 10/22/2012 14:05:00 Document Registration [id number] 09/17/2012 17:37:00 Document Registration [id number] 07/18/2011 09:56:00 Document Registration
--- NOTE | 2018-10-20 17:57 | NUR ---
Still unable to get an EKG reading at this time.
[2018-10-20 18:19] LABS: BASOPHILS % (AUTO) 1 % (0-10); EOSINOPHILS % (AUTO) 1 % (0-10); HEMATOCRIT 21 % (40-54); HEMOGLOBIN 7.5 G/DL (13.3-17.7); LYMPHOCYTES # (AUTO) 1.1 X 10^3 (1.0-4.0); LYMPHOCYTES % (AUTO) 48 % (12-44); MEAN CORPUSCULAR HEMOGLOBIN 36 PG (25-34); MEAN CORPUSCULAR HGB CONC 36 G/DL (32-36); MEAN CORPUSCULAR VOLUME 99 FL (80-99); MEAN PLATELET VOLUME 10.1 FL (7.4-10.4); MONOCYTES # (AUTO) 0.1 X 10^3 (0.0-1.0); MONOCYTES % (AUTO) 4 % (0-12); NEUTROPHILS % (AUTO) 46 % (42-75); RED BLOOD COUNT 2.11 10^6/uL (4.35-5.85); RED CELL DISTRIBUTION WIDTH 13.7 % (10.0-14.5); WHITE BLOOD COUNT 2.2 10^3/uL (4.3-11.0)
[2018-10-20 18:21] LABS: PLATELET COUNT 27 10^3/uL (130-400)
[2018-10-20 18:28] LABS: INR 1.3 (0.8-1.4); PROTHROMBIN TIME PATIENT 15.7 SEC (12.2-14.7)
[2018-10-20 18:35] LABS: ALANINE AMINOTRANSFERASE 22 U/L (0-55); ALBUMIN 3.6 GM/DL (3.2-4.5); ALKALINE PHOSPHATASE 92 U/L (40-136); AMMONIA 31 UMOL/L (11-32); BILIRUBIN,TOTAL 1.9 MG/DL (0.1-1.0); BUN/CREATININE RATIO 21; CALCIUM 7.6 MG/DL (8.5-10.1); CARBON DIOXIDE 25 MMOL/L (21-32); CHLORIDE 88 MMOL/L (98-107); CREATININE SERUM 0.76 MG/DL (0.60-1.30); GFR ESTIMATED > 60; GLUCOSE 116 MG/DL (70-105); POTASSIUM 3.3 MMOL/L (3.6-5.0); SODIUM 130 MMOL/L (135-145); TOTAL PROTEIN 5.3 GM/DL (6.4-8.2)
--- NOTE | 2018-10-20 19:09 | NUR ---
Pt's temperature 97.0 at this time.
[2018-10-20] MEDS ORDERED: POTASSIUM CL 10MEQ/50ML IVPB 50 ML IV ONE (19:15)
--- NOTE | 2018-10-20 19:37 | ED General ---
General Chief Complaint: Unresponsive Stated Complaint: UNRESPONSIVE Source of Information: Patient Exam Limitations: No Limitations History of Present Illness Date Seen by Provider: Oct 20, 2018 Time Seen by Provider: 17:37 Initial Comments Patient is a 63-year-old male who was brought into the emergency room by [facility]. EMS reports that they were dispatched for unresponsive and agonal breathing on arrival to the scene EMS reports they found this 63-year- old male on the [facility] waiting room picked up by EMS. He is alert and oriented on arrival to the emergency room and reports that he was just sleeping. He voices no complaints on arrival to the emergency room. His temperature was found to be 92 orally. He was covered in warm blankets and a warm bolus of saline was ordered. He is accompanied by a friend who does not live with him but often checks on him and reports that his been immobile and wheelchair-bound for the past 2 weeks and has not been eating well. His friend reports that he has a long history of alcoholism but has recently stopped drinking in the past month. He reports that he sees [facility] for primary care. He did have a initial fluid bolus of 500 mL's of normal saline in route by EMS that was stopped to initiate warm IV fluids. Associated Systoms: Denies Symptoms Allergies and Home Medications Allergies Coded Allergies: No Known Drug Allergies (Unverified , 09/17/12) Home Medications Folic Acid 1 Mg Tablet, 1 MG PO DAILY Prescribed by: SANJAY ENRIQUEZ on 07/07/16 1140 Levothyroxine Sodium 50 Mcg Tablet, 50 MCG PO DAILY@0630 Prescribed by: SANJAY ENRIQUEZ on 07/07/16 1140 Tamsulosin HCl 0.4 Mg Cap, 0.4 MG PO HS Prescribed by: SANJAY ENRIQUEZ on 07/07/16 1140 Thiamine HCl 100 Mg Tablet, 100 MG PO DAILY@0700 Prescribed by: SANJAY ENRIQUEZ on 07/07/16 1140 [Multivitamins/Minerals Therap] 1 EA TABLET, 1 EA PO DAILY@0700 Prescribed by: SANJAY ENRIQUEZ on 07/07/16 1140 Patient Home Medication List Home Medication List Reviewed: Yes Review of Systems Review of Systems Constitutional: no symptoms reported, see HPI All Other Systems Reviewed Negative Unless Noted: Yes Past Ajhjoux-Frziyo-Yzdswb Hx Patient Social History Alcohol Beverage of Choice: Whiskey Type Used: Cigarettes Recent Foreign Travel: No Contact w/Someone Who Travel: No Recent Hopitalizations: No Immunizations Up To Date Tetanus Booster (TDap): Less than 5yrs Seasonal Allergies Seasonal Allergies: No Past Medical History COPD Currently Using CPAP: No Reproductive Disorders: No Arthritis, Back Injury, Chronic Back Pain Hypothyroidsim Hearing Impairment: Hard of Hearing Adverse Reaction/Blood Tranf: No Family Medical History Patient reports no known family medical history. Physical Exam Vital Signs Vital Signs - First Documented 10/20/18 10/20/18 17:37 23:04 Temp 92.0 Pulse 69 Resp 8 B/P (MAP) 106/68 (81) Pulse Ox 97 O2 Delivery Room Air O2 Flow Rate 2.00 Capillary Refill : Height, Weight, BMI Height: 6'0.00" Weight: 170lbs. 0.0oz. 77.783298fj; 19.4 BMI Method:Stated General Appearance: No Apparent Distress Eyes: Bilateral Eye Normal Inspection, Bilateral Eye PERRL, Bilateral Eye EOMI HEENT: PERRL/EOMI, TMs Normal, Normal ENT Inspection, Pharynx Normal Neck: Full Range of Motion, Normal Inspection, Non Tender, Supple Respiratory: Chest Non Tender, Lungs Clear, Normal Breath Sounds, No Accessory Muscle Use, No Respiratory Distress Cardiovascular: Regular Rate, Rhythm, No Edema, No Gallop, No JVD, No Murmur, Normal Peripheral Pulses Gastrointestinal: Normal Bowel Sounds, No Organomegaly, No Pulsatile Mass, Non Tender, Soft Extremity: Normal Capillary Refill, Normal Inspection, Normal Range of Motion, Non Tender, No Calf Tenderness, No Pedal Edema Neurologic/Psychiatric: Alert, Oriented x3, Normal Mood/Affect Skin: Normal Color, Warm/Dry, Ecchymosis (ecchymosis to bilateral upper extremities. Patient denies injuries.) Focused Exam Lactate Level 10/20/18 18:56: Lactic Acid Level 2.47*H 10/20/18 21:05: Lactic Acid Level 1.73 Lactic Acid Level Laboratory Tests Test 10/20/18 21:05 Lactic Acid Level 1.73 MMOL/L (0.50-2.00) Progress/Results/Core Measures Suspected Sepsis SIRS Temperature: Pulse: Respiratory Rate: Laboratory Tests 10/20/18 18:00: White Blood Count 2.2L 10/20/18 23:35: Blood Pressure / Mean: 10/20/18 18:56: Lactic Acid Level 2.47*H 10/20/18 21:05: Lactic Acid Level 1.73 Laboratory Tests 10/20/18 18:00: Creatinine 0.76, INR Comment 1.3, Platelet Count 27*L, Total Bilirubin 1.9H 10/20/18 23:35: Results/Orders Lab Results Laboratory Tests Test 10/20/18 18:00 10/20/18 18:56 10/20/18 20:07 10/20/18 21:05 Range/Units White Blood Count 2.2 L 4.3-11.0 10^3/uL Red Blood Count 2.11 L 4.35-5.85 10^6/uL Hemoglobin 7.5 L 13.3-17.7 G/DL Hematocrit 21 L 40-54 % Mean Corpuscular Volume 99 80-99 FL Mean Corpuscular Hemoglobin 36 H 25-34 PG Mean Corpuscular Hemoglobin Concent 36 32-36 G/DL Red Cell Distribution Width 13.7 10.0-14.5 % Platelet Count 27 *L 130-400 10^3/uL Mean Platelet Volume 10.1 7.4-10.4 FL Neutrophils (%) (Auto) 46 42-75 % Lymphocytes (%) (Auto) 48 H 12-44 % Monocytes (%) (Auto) 4 0-12 % Eosinophils (%) (Auto) 1 0-10 % Basophils (%) (Auto) 1 0-10 % Neutrophils # (Auto) 1.0 L 1.8-7.8 X 10^3 Lymphocytes # (Auto) 1.1 1.0-4.0 X 10^3 Monocytes # (Auto) 0.1 0.0-1.0 X 10^3 Eosinophils # (Auto) 0.0 0.0-0.3 10^3/uL Basophils # (Auto) 0.0 0.0-0.1 10^3/uL Prothrombin Time 15.7 H 12.2-14.7 SEC INR Comment 1.3 0.8-1.4 Activated Partial Thromboplast Time 34 24-35 SEC Sodium Level 130 L 135-145 MMOL/L Potassium Level 3.3 L 3.6-5.0 MMOL/L Chloride Level 88 L 98-107 MMOL/L Carbon Dioxide Level 25 21-32 MMOL/L Anion Gap 17 H 5-14 MMOL/L Blood Urea Nitrogen 16 7-18 MG/DL Creatinine 0.76 0.60-1.30 MG/DL Estimat Glomerular Filtration Rate > 60 BUN/Creatinine Ratio 21 Glucose Level 116 H 70-105 MG/DL Calcium Level 7.6 L 8.5-10.1 MG/DL Corrected Calcium 7.9 L 8.5-10.1 MG/DL Total Bilirubin 1.9 H 0.1-1.0 MG/DL Aspartate Amino Transf (AST/SGOT) 49 H 5-34 U/L Alanine Aminotransferase (ALT/SGPT) 22 0-55 U/L Alkaline Phosphatase 92 40-136 U/L Ammonia 31 11-32 UMOL/L Total Protein 5.3 L 6.4-8.2 GM/DL Albumin 3.6 3.2-4.5 GM/DL Serum Alcohol < 10 <10 MG/DL Lactic Acid Level 2.47 *H 1.73 0.50-2.00 MMOL/L Urine Color TAJ H Urine Clarity SL CLOUDY Urine pH 6.5 5-9 Urine Specific [place] 1.010 L 1.016-1.022 Urine Protein 1+ H NEGATIVE Urine Glucose (UA) NEGATIVE NEGATIVE Urine Ketones 2+ H NEGATIVE Urine Nitrite POSITIVE H NEGATIVE Urine Bilirubin 2+ H NEGATIVE Urine Urobilinogen 8 H NORMAL MG/DL Urine Leukocyte Esterase 1+ H NEGATIVE Urine RBC (Auto) NEGATIVE NEGATIVE Urine RBC NONE /HPF Urine WBC 0-2 /HPF Urine Crystals NONE /LPF Urine Bacteria MODERATE H /HPF Urine Casts NONE /LPF Urine Mucus NEGATIVE /LPF Urine Culture Indicated NO Test 10/20/18 23:35 Range/Units My Orders Orders - STERILNG PAYTON Cbc With Automated Diff (10/20/18 17:51) Comprehensive Metabolic Panel (10/20/18 17:51) Blood Culture (10/20/18 17:51) Urinalysis (10/20/18 17:51) Urine Culture (10/20/18 17:51) Protime With Inr (10/20/18 17:51) Partial Thromboplastin Time (10/20/18 17:51) Saline Lock/Iv-Start (10/20/18 17:51) Vital Signs Adult Sepsis Patie Q15M (10/20/18 17:51) O2 (10/20/18 17:51) Remove Rings In Anticipation O (10/20/18 17:51) Lactic Acid Analyzer (10/20/18 17:51) Ammonia (10/20/18 17:51) Ns Iv 1000 Ml (Sodium Chloride 0.9%) (10/20/18 18:00) Alcohol (10/20/18 17:53) Potassium Cl 10meq/50ml Ivpb (Kcl 10 Meq (10/20/18 19:15) Chest 1 View, Ap/Pa Only (10/20/18 20:06) Ceftriaxone For Iv Use (Rocephin For I (10/20/18 20:45) Ns Iv 1000 Ml (Sodium Chloride 0.9%) (10/20/18 21:00) Vital Signs/I&O 10/20/18 10/20/18 10/20/18 10/20/18 17:37 21:30 21:45 22:00 Temp 92.0 96.3 Pulse 69 75 70 74 Resp 8 14 11 8 B/P (MAP) 106/68 (81) 103/74 (84) 80/64 (69) 92/65 (74) Pulse Ox 97 95 97 98 O2 Delivery Room Air Room Air Room Air Room Air 10/20/18 10/20/18 10/20/18 10/20/18 22:06 22:15 22:30 22:45 Pulse 70 69 70 58 Resp 9 14 B/P (MAP) 84/66 (72) 81/64 (70) 82/61 (68) Pulse Ox 98 96 95 O2 Delivery Room Air Room Air Room Air 10/20/18 10/20/18 10/20/18 23:00 23:04 23:15 Pulse 60 60 53 Resp 10 10 B/P (MAP) 83/62 (69) 84/67 (73) Pulse Ox 95 96 93 O2 Delivery Room Air Nasal Cannula Nasal Cannula O2 Flow Rate 2.00 2.00 Capillary Refill : Progress Note : Time: 19:00 Progress Note I have seen and evaluated the patient. I have discussed the case with Dr. Mcmillan at this time. She was informed of the patient's hypotension and blood pressures in the 90s systolic. I informed her that a 2500 bolus was given for sepsis prophylaxis and that we are awaiting urine, chest x-ray, and lactic acid results at this time. She believes that the patient is chronically low on the laboratory findings and recommends giving IV fluids, replacing potassium, and withholding blood at this time. Will update her with pending results. 2031: Urine, chest x-ray and lactic acid are back at this time. I have informed Dr. Mcmillan of these findings and the use of Rocephin for anabiotic coverage for UTI and admitting him to the unit for sepsis protocol and she agrees. First dose of Rocephin was started prior to going to the ICU. Diagnostic Imaging Diagonstic Imaging: Xray Plain Films/CT/US/NM/MRI: chest Comments NAME: ROSALIA WHITE [facility] REC#: [id number] PT STATUS: ADM Gillian : 1955 PHYSICIAN: STERLING PAYTON ADMIT DATE: 10/20/18/ICU Signed Date of Exam:10/20/18 CHEST 1 VIEW, AP/PA ONLY INDICATION: Chronic anemia COMPARISON: 07/03/2016 TECHNIQUE: Single frontal radiograph of the chest dated 10/20/2018. FINDINGS: The cardiac silhouette and pulmonary vasculature are within normal limits in size. Background senescent changes of the lungs are identified. No new focal pulmonary opacity. No pleural effusion. No pneumothorax. Chronic left-sided rib fracture. No acute osseous abnormality. IMPRESSION: Senescent changes in the lungs without acute cardiopulmonary abnormality. Dictated by: Dictated on workstation # [id number] Dict: 10/20/182031 Trans: 10/20/182048 [facility] [id number] Interpreted by: BRIDGETTE GALINDO MD Electronically signed by: BRIDGETTE GALINDO MD 10/20/182048 Reviewed: Reviewed by Me Departure Communication (Admissions) Time/Spoke to Admitting Phy: 19:00 Hipolito Impression Primary Impression: Chronic anemia Additional Impressions: Acute hypokalemia Hyponatremia Debility Disposition: 01 HOME, SELF-CARE Condition: Stable/Unchanged Admissions Decision to Admit Reason: Admit from ER (General) Decision to Admit/Date: Oct 20, 2018 Time/Decision to Admit Time: 19:00 Departure-Patient Inst. Referrals: GUTIERREZ WOODSON MD (PCP/Family) Primary Care Physician STERLING PAYTON Oct 20, 2018 19:37
[2018-10-20 20:24] LABS: COLOR,URINE AMBER; GLUCOSE, URINE (UA) NEGATIVE (NEGATIVE); KETONES,URINE 2+ (NEGATIVE); LEUKOCYTE ESTERASE ,URINE 1+ (NEGATIVE); NITRITE,URINE POSITIVE (NEGATIVE); PH,URINE 6.5 (5-9); PROTEIN,URINE 1+ (NEGATIVE); UROBILINOGEN,URINE 8 MG/DL (NORMAL)
[2018-10-20 20:25] LABS: BACTERIA,URINE MODERATE /HPF; CLARITY,URINE SL CLOUDY; WBC,URINE 0-2 /HPF
--- NOTE | 2018-10-20 20:36 | Diagnostic Imaging Report ---
INDICATION: Chronic anemia COMPARISON: 07/03/2016 TECHNIQUE: Single frontal radiograph of the chest dated 10/20/2018. FINDINGS: The cardiac silhouette and pulmonary vasculature are within normal limits in size. Background senescent changes of the lungs are identified. No new focal pulmonary opacity. No pleural effusion. No pneumothorax. Chronic left-sided rib fracture. No acute osseous abnormality. IMPRESSION: Senescent changes in the lungs without acute cardiopulmonary abnormality. Dictated by: Dictated on workstation # [id number]
[2018-10-20] MEDS ORDERED: cefTRIAXone FOR IV USE 1,000 MG in NS (IVPB) 50 ML IV ONE (20:45)
[2018-10-20] MEDS ORDERED: NS IV 1000 ML 1,000 ML IV SCH (21:00)
[2018-10-20] MEDS ORDERED: NS IV 1000 ML 2,041.17 ML IV ONE (22:00)
[2018-10-20] MEDS ORDERED: ONDANSETRON 4 MG/2 ML (SDV) Z0FRAN IV PRN (22:00)
[2018-10-20] MEDS: NOREPINEPHRINE 4 MG in NS (IVPB) 250 ML IV SCH (22:20)
--- NOTE | 2018-10-20 22:30 | NUR ---
2230: PT'S CURRENT B/P: 81/64. THIS RN RECEIVED IN REPORT THAT "PATIENT HAD CHRONIC LOW B/P AND THAT PHYSICIAN DID NOT WANT ANY PRESSORS STARTED." THIS RN CALLED DR. LAMAS TO CLARIFY THIS STATEMENT PATIENT WAS PLACED ON THE SEPSIS PROTOCOL AND PER THE SEPSIS PROTOCOL, CONTINUED HYPOTENSION INDICATED A NEED FOR CENTRAL LINE PLACEMENT AND LEVOPHED TO BE STARTED. THIS RN REPORTED TO DR. LAMAS THAT PT CONTINUED TO BE HYPOTENSION DESPITE 30 ML/KG BOLUS BEING COMPLETED AND NS RUNNING AT 250 ML/HR PER PROTOCOL. DR. LAMAS NOTIFIED THAT PT'S SYSTOLIC B/P HAS BEEN IN THE 80'S SINCE HE WAS IN THE ER. DR. LAMAS INSTRUCTED THIS RN TO FOLLOW UP WITH E-ICU AT THIS TIME FOR FURTHER GUIDANCE. 2235: E-ICU NOTIFIED OF PATIENT'S CONTINUED HYPOTENSION DESPITE FLUID RESUSCITATION, CURRENT LABS, AND HISTORY. 2300: THIS RN TALKED TO E-ICU ABOUT PT'S CURRENT CONDITION, NEW ORDER RECEIVED FOR A 500 ML BOLUS OF LR AT THIS TIME. 2315: NEW ORDERS RECEIVED FOR PT/INR, PERIPHERAL SMEAR, AND TYPE AND SCREEN AT THIS TIME.
[2018-10-20] MEDS ORDERED: POTASSIUM CL 10MEQ/50ML IVPB 200 ML IV ONE (22:51)
--- NOTE | 2018-10-20 23:10 | NUR ---
ROSALIA WHITE admitted to room CU1-1, with an admitting diagnosis of debility; chronic anemia; hypokalemia; hyponatremia; sepsis; UTI, on 10/20/18 from ER via cart, accompanied by ER staff.ROSALIA WHITE introduced to surroundings, call light, bed controls, phone, TV, temperature control, lights, meal times, smoking policy, visitor policy, side rail policy, bathrooms and showers. Patient Rights given to patient in the handbook. ROSALIA WHITE verbalizes understanding that [facility] is not responsible for the loss or damage to any personal effects or valuables that are kept in the patient's possessions during their hospitalization. The following Patient Care Plans were discussed with the patient: Discharge Planning, risk for infection r/t sepsis, hyperthermia r/t sepsis, and risk for deficient fluid volume. ROSALIA WHITE verbalizes understanding of Interdisciplinary Patient Education. Patient was informed about the Rapid Response Team and its purpose. Addendum: 10/21/18 at 0104 by JASWINDER MAGANA RN ADMIT DATE/TIME: 10/20/2018 AT 2130
[2018-10-20] MEDS: 1/2 NS W/KCL 20 MEQ/L 1,000 ML IV SCH (23:11)
[2018-10-20] MEDS: POTASSIUM CL 10MEQ/50ML IVPB 50 ML IV SCH (23:11)
[2018-10-20] MEDS ORDERED: LACTATED RINGERS 1,000 ML IV ONE ×2 (23:13→23:30)
[2018-10-20] MEDS ORDERED: LACTATED RINGERS 500 ML IV ONE (23:30)
[2018-10-20 23:49] LABS: BASOPHILS % (AUTO) 1 % (0-10); EOSINOPHILS % (AUTO) 1 % (0-10); HEMATOCRIT 23 % (40-54); LYMPHOCYTES # (AUTO) 0.8 X 10^3 (1.0-4.0); LYMPHOCYTES % (AUTO) 35 % (12-44); MEAN CORPUSCULAR HEMOGLOBIN 35 PG (25-34); MEAN CORPUSCULAR HGB CONC 36 G/DL (32-36); MEAN CORPUSCULAR VOLUME 99 FL (80-99); MEAN PLATELET VOLUME 10.4 FL (7.4-10.4); MONOCYTES # (AUTO) 0.1 X 10^3 (0.0-1.0); MONOCYTES % (AUTO) 3 % (0-12); NEUTROPHILS # (AUTO) 1.4 X 10^3 (1.8-7.8); NEUTROPHILS % (AUTO) 60 % (42-75); RED BLOOD COUNT 2.27 10^6/uL (4.35-5.85); RED CELL DISTRIBUTION WIDTH 13.6 % (10.0-14.5); WHITE BLOOD COUNT 2.3 10^3/uL (4.3-11.0)
[2018-10-20 23:52] LABS: PLATELET COUNT 27 10^3/uL (130-400)
[2018-10-20 23:57] LABS: ABSOLUTE RETIC # 2 10e9/L (24-90); RETICULOCYTE % 0.07 % (0.50-2.40)
[2018-10-21] VITALS (27 sets, daily range): BP systolic 78–111; BP diastolic 59–79
[2018-10-21] MEDS: POTASSIUM CL 10MEQ/50ML IVPB 50 ML IV SCH ×4 (00:22→04:47)
[2018-10-21 00:36] LABS: INR 1.2 (0.8-1.4); PROTHROMBIN TIME PATIENT 15.4 SEC (12.2-14.7)
[2018-10-21 01:01] LABS: BAND NEUTROPHILS 2 %; BASOPHILS % (MANUAL) 0 %; EOSINOPHILS % (MANUAL) 2 %; HYPOCHROMASIA SLIGHT; LYMPHOCYTES % (MANUAL) 37 %; MONOCYTES % (MANUAL) 1 %; NEUTROPHILS % (MANUAL) 58 %; POIKILOCYTOSIS SLIGHT
[2018-10-21 01:02] LABS: CRENATED RBC SLIGHT; TARGET CELLS SLIGHT; TEAR DROP CELLS SLIGHT
[2018-10-21] MEDS: NS IV 1000 ML 1,000 ML IV SCH ×6 (03:22→19:39)
[2018-10-21] MEDS ORDERED: LIDOCAINE UROJET 2% GEL 10 ML PKG ONE (03:27)
[2018-10-21 03:42] LABS: BASOPHILS % (AUTO) 1 % (0-10); EOSINOPHILS % (AUTO) 1 % (0-10); HEMATOCRIT 22 % (40-54); HEMOGLOBIN 7.6 G/DL (13.3-17.7); LYMPHOCYTES # (AUTO) 0.8 X 10^3 (1.0-4.0); LYMPHOCYTES % (AUTO) 38 % (12-44); MEAN CORPUSCULAR HEMOGLOBIN 35 PG (25-34); MEAN CORPUSCULAR HGB CONC 35 G/DL (32-36); MEAN CORPUSCULAR VOLUME 99 FL (80-99); MEAN PLATELET VOLUME 10.5 FL (7.4-10.4); MONOCYTES # (AUTO) 0.1 X 10^3 (0.0-1.0); MONOCYTES % (AUTO) 4 % (0-12); NEUTROPHILS # (AUTO) 1.2 X 10^3 (1.8-7.8); NEUTROPHILS % (AUTO) 56 % (42-75); RED BLOOD COUNT 2.18 10^6/uL (4.35-5.85); RED CELL DISTRIBUTION WIDTH 13.8 % (10.0-14.5); WHITE BLOOD COUNT 2.1 10^3/uL (4.3-11.0)
[2018-10-21 04:12] LABS: PLATELET COUNT 25 10^3/uL (130-400)
--- NOTE | 2018-10-21 04:20 | NUR ---
PT UNABLE TO VOID AT THIS TIME. THIS RN INSERTED A BALLESTEROS CATHETER. PT TOLERATED WELL. 150 ML OF DARK YELLOW URINE NOTED IN COLLECTION CANISTER. E-ICU NOTIFIED OF LOW URINE OUTPUT AND FLUID ADMINISTRATION TOTAL FOR MY SHIFT.
[2018-10-21 04:30] LABS: ALANINE AMINOTRANSFERASE 20 U/L (0-55); ALBUMIN 3.6 GM/DL (3.2-4.5); ALKALINE PHOSPHATASE 100 U/L (40-136); BILIRUBIN,TOTAL 1.7 MG/DL (0.1-1.0); BUN/CREATININE RATIO 18; CALCIUM 7.6 MG/DL (8.5-10.1); CARBON DIOXIDE 21 MMOL/L (21-32); CHLORIDE 93 MMOL/L (98-107); CREATININE SERUM 0.72 MG/DL (0.60-1.30); GFR ESTIMATED > 60; GLUCOSE 84 MG/DL (70-105); MAGNESIUM 1.4 MG/DL (1.8-2.4); POTASSIUM 3.9 MMOL/L (3.6-5.0); SODIUM 130 MMOL/L (135-145); TOTAL PROTEIN 5.6 GM/DL (6.4-8.2)
[2018-10-21] MEDS: KCL 20 MEQ TAB (K-DUR) PO SCH (04:47)
--- NOTE | 2018-10-21 05:10 | NUR ---
0510: PT'S B/P: 81/63, THIS RN CALLED E-ICU TO REPORT SYSTOLIC B/P'S BACK IN THE 80'S AND CONTINUED LOW URINE OUTPUT. THIS RN SPOKE WITH E-ICU DOCTOR ABOUT HYPOTENSION AND PT'S TOTAL FLUID VOLUME. 0530: NEW ORDER RECEIVED FOR 500 ML LR BOLUS.
[2018-10-21] MEDS ORDERED: LACTATED RINGERS 1,000 ML IV STA (05:54)
--- NOTE | 2018-10-21 06:22 | Pulmonary Consultation ---
History of Present Illness History of Present Illness Date of Consultation 10/21/18 06:17 Time Seen by Provider: 06:17 Date of Admission History of Present Illness 63yo with long hx of tobacco use, and alcoholism (states he has not been drinking alcohol since before ) presented to ED via EMS secondary to being found unresponsive. Upon ED arrival pt stated he was just sleeping. His temp in ED was to by dehydrated and hypothermic (92 orally). Pt has been immobile and wheelchair-bound for the past 2wks. I am consulted for ICU management. He has had similar prior episodes like this and required ECF from rehab services. Allergies and Home Medications Allergies Coded Allergies: No Known Drug Allergies (Unverified , 09/17/12) Home Medications No Active Prescriptions or Reported Meds Past Xnopogm-Lideou-Srgfkn Hx Patient Social History Alcohol Use: Denies Use Number of Drinks Today: GG Alcohol Beverage of Choice: Whiskey Recreational Drug Use: No Smoking Status: Current Everyday Smoker Type Used: Cigarettes 2nd Hand Smoke Exposure: Yes Recent Foreign Travel: No Contact w/Someone Who Travel: No Recent Infectious Disease Expo: No Recent Hopitalizations: No Physical Abuse: No Sexual Abuse: No Immunizations Up To Date Tetanus Booster (TDap): Less than 5yrs Seasonal Allergies Seasonal Allergies: No Past Medical History Surgeries: No Respiratory: Yes COPD Currently Using CPAP: No Cardiac: No Neurological: No Reproductive Disorders: No Gastrointestinal: No Musculoskeletal: Yes Arthritis, Back Injury, Chronic Back Pain Endocrine: Yes (thyroid disease) Hypothyroidsim Hearing Impairment: Hard of Hearing Cancer: No Psychosocial: No Integumentary: No Blood Disorders: No Adverse Reaction/Blood Tranf: No Family Medical History Patient reports no known family medical history. Review of Systems Time Seen by Provider: 08:45 Constitutional: Fever, Chills, Sweats, Weakness, Malaise Eyes: No: Pain, Vision change, Conjunctivae inflammation, Eyelid inflammation, Other, Redness ENT: No: Ear pain, Ear discharge, Nose pain, Nose discharge, Nose congestion, Mouth pain, Mouth swelling, Throat pain, Throat swelling, Other Respiratory: Cough, Dry, Shortness of breath, SOB with excertion, Wheezing; No : Hemoptysis Cardiovascular: Paroxysmal Noc. Dyspnea; No: Chest Pain, Palpitations, Orthopnea, Edema, Lt Headedness, Other Sepsis Event Evaluation Height, Weight, BMI Height: 6'0.00" Weight: 200lbs. 0.0oz. 90.390147vd; 27.1 BMI Method:Stated Exam Exam Vital Signs Date Time Temp Pulse Resp B/P (MAP) Pulse Ox O2 Delivery O2 Flow Rate FiO2 10/21/18 05:00 63 9 83/61 (68) 99 Room Air 10/21/18 04:00 65 10 102/66 (78) 100 Room Air 10/21/18 04:00 96 Room Air 10/21/18 04:00 96.9 Room Air 10/21/18 03:15 63 11 109/74 (86) 100 Nasal Cannula 2.00 10/21/18 02:00 61 20 100/68 (79) 100 Nasal Cannula 2.00 10/21/18 01:03 57 10/21/18 01:00 61 99/68 (78) 100 Nasal Cannula 2.00 10/21/18 00:22 96.3 10/21/18 00:00 59 94/64 (74) 100 Nasal Cannula 2.00 10/21/18 00:00 97 Nasal Cannula 2.00 10/20/18 23:45 Nasal Cannula 2.00 10/20/18 23:45 61 90/63 (72) 100 Nasal Cannula 2.00 10/20/18 23:30 65 9 85/65 (72) 100 Nasal Cannula 2.00 10/20/18 23:15 53 10 84/67 (73) 93 Nasal Cannula 2.00 10/20/18 23:04 60 96 Nasal Cannula 2.00 10/20/18 23:00 60 10 83/62 (69) 95 Room Air 10/20/18 22:45 58 14 82/61 (68) 95 Room Air 10/20/18 22:30 70 81/64 (70) 96 Room Air 10/20/18 22:15 69 9 84/66 (72) 98 Room Air 10/20/18 22:06 70 10/20/18 22:00 74 8 92/65 (74) 98 Room Air 10/20/18 21:45 70 11 80/64 (69) 97 Room Air 10/20/18 21:35 96 Nasal Cannula 2.00 10/20/18 21:30 96.3 75 14 103/74 (84) 95 Room Air 10/20/18 21:25 97.0 73 10 89/60 (70) 99 Room Air 10/20/18 17:37 92.0 69 8 106/68 (81) 97 Room Air I & O 10/21/18 07:00 Intake Total 3150 ml Output Total 0 ml Balance 3150 ml Height & Weight Height: 6'0.00" Weight: 200lbs. 0.0oz. 90.379866ho; 27.1 BMI Method:Stated General Appearance: No Apparent Distress HEENT: PERRL/EOMI, TMs Normal, Normal ENT Inspection, Pharynx Normal Neck: Full Range of Motion, Normal Inspection, Non Tender, Supple Respiratory: Chest Non Tender, Lungs Clear, Normal Breath Sounds, No Accessory Muscle Use, No Respiratory Distress Cardiovascular: Regular Rate, Rhythm, No Edema, No Gallop, No JVD, No Murmur, Normal Peripheral Pulses Capillary Refill: Less Than 3 Seconds Extremity: Normal Capillary Refill, Normal Inspection, Normal Range of Motion, Non Tender, No Calf Tenderness, No Pedal Edema Neurologic/Psychiatric: Alert, Oriented x3, Normal Mood/Affect Skin: Normal Color, Warm/Dry, Ecchymosis (ecchymosis to bilateral upper extremities. Patient denies injuries.) Results Lab Laboratory Tests 10/20/18 18:00 10/20/18 23:35 10/21/18 03:10 Assessment/Plan Assessment/Plan UTI with severe sepsis -Sepsis protocol - Severe dehydration -aggressive IVF -Give another liter bolus Weakness/debility -CHeck CT of head with and without -Check TSH, free T3/T4 -Check ammonia level -Check random cortisol Pancytopenia -Pt will probably need bone marrow bx once he's improved -Consider oncology consult after he improves SOM ALTMAN DO Oct 21, 2018 06:22
[2018-10-21] MEDS ORDERED: CALCIUM GLUC. 10% 4.65 MEQ/10 ML VIAL IV ONE (06:30)
[2018-10-21] MEDS ORDERED: HYDROCORTISONE 100 MG/2 ML (Solu-CORTEF) VIAL ONE (06:31)
[2018-10-21] MEDS: MAGNESIUM 1 GM/100 ML IVPB 100 ML IV SCH ×3 (06:43→07:43)
[2018-10-21] MEDS: 1/2 NS W/KCL 20 MEQ/L 1,000 ML IV SCH ×3 (06:43→15:25)
[2018-10-21] MEDS ORDERED: NS IV 1000 ML 1,000 ML IV SCH (06:45)
[2018-10-21 06:51] LABS: AMMONIA 23 UMOL/L (11-32)
[2018-10-21] MEDS ORDERED: FLU QUADRIvalent (5+ YOA) 2018-2019 (AFLURIA) 0.5 ML IM ONE (07:00)
[2018-10-21 07:20] LABS: FREE T4 (FREE THYROXINE) < 0.40 NG/DL (0.70-1.48)
[2018-10-21 07:22] LABS: BILIRUBIN,URINE 2+ (NEGATIVE)
[2018-10-21] MEDS ORDERED: CALCIUM GLUCONATE 1 GM/NS 50 ML IV NR ×2 (07:41)
[2018-10-21 07:47] LABS: AMPHETAMINE SCREEN, URINE NEGATIVE (NEGATIVE); BARBITURATE SCREEN URINE NEGATIVE (NEGATIVE); BENZODIAZEPINES SCREEN URINE NEGATIVE (NEGATIVE); CANNABINOID SCREEN, URINE NEGATIVE (NEGATIVE); COCAINE SCREEN URINE NEGATIVE (NEGATIVE); METHADONE STAT NEGATIVE (NEGATIVE); METHAMPHETAMINE SCREEN URINE S NEGATIVE (NEGATIVE); OPIATE SCREEN URINE NEGATIVE (NEGATIVE); OXYCODONE STAT NEGATIVE (NEGATIVE); PROPOXYPHENE STAT NEGATIVE (NEGATIVE); TRICYCLIC ANTIDEPRESSANTS SCRE NEGATIVE (NEGATIVE)
--- NOTE | 2018-10-21 07:55 | History & Physicial ---
History of Present Illness History of Present Illness Reason for visit/HPI Patient [place] emergency by [facility]. At home patient unresponsive. Patient has not been eating good. Patient's temperature 90.2 degrees. In the last 2 weeks patient immobile and wheelchair. Patient has history of alcoholism. Blood tests shows pancytopenia. Hypokalemia, hyponatremia, debility. Lactic acid above 2. Has low back pain. Patient told nurse last night that he wants to be a DO NOT RESUSCITATE Date of Admission Oct 20, 2018 at 19:00 Time Seen by a Provider: 07:50 I consulted on this patient on 10/21/18 07:50 Attending Physician Kehinde Hernandez DO Admitting Physician Kehinde Hernandez DO Consult Allergies and Home Medications Allergies Coded Allergies: No Known Drug Allergies (Unverified , 09/17/12) Home Medications Folic Acid 1 Mg Tablet, 1 MG PO DAILY Prescribed by: SANJAY ENRIQUEZ on 07/07/16 1140 Levothyroxine Sodium 50 Mcg Tablet, 50 MCG PO DAILY@0630 Prescribed by: SANJAY ENRIQUEZ on 07/07/16 1140 Tamsulosin HCl 0.4 Mg Cap, 0.4 MG PO HS Prescribed by: SANJAY ENRIQUEZ on 07/07/16 1140 Thiamine HCl 100 Mg Tablet, 100 MG PO DAILY@0700 Prescribed by: SANJAY ENRIQUEZ on 07/07/16 1140 [Multivitamins/Minerals Therap] 1 EA TABLET, 1 EA PO DAILY@0700 Prescribed by: SANJAY ENRIQUEZ on 07/07/16 1140 Patient Home Medication List Home Medication List Reviewed: No Past Bfaruun-Ycpeqc-Dslgta Hx Patient Social History Employed/Student: unemployed Alcohol Use: Denies Use Number of Drinks Today: GG Alcohol Beverage of Choice: Whiskey Recreational Drug Use: No Smoking Status: Current Everyday Smoker Type Used: Cigarettes 2nd Hand Smoke Exposure: Yes Physical Abuse Screen: No Sexual Abuse: No Recent Foreign Travel: No Contact w/other who traveled: No Recent Hopitalizations: No Recent Infectious Disease Expo: No Immunizations Up To Date Tetanus Booster (TDap): Less than 5yrs Seasonal Allergies Seasonal Allergies: No Surgeries No Respiratory Yes Currently Using CPAP: No Cardiovascular No Neurological No Reproductive System Hx Reproductive Disorders: No Gastrointestinal No Musculoskeletal Yes Arthritis, Back Injury, Chronic Back Pain Endocrine History of Endocrine Disorders: Yes (thyroid disease) Endocrine Disorders: Hypothyroidsim HEENT Hearing Impairment: Hard of Hearing Cancer No Psychosocial History of Psychiatric Problem: No Integumentary History of Skin or Integumenta: No Blood Transfusions History of Blood Disorders: No Adverse Reaction to a Blood Tr: No Family Medical History Family Hx: Patient reports no known family medical history. Review of Systems Constitutional: malaise, weakness, other (Bruises over arms) EENTM: no symptoms reported Respiratory: no symptoms reported Cardiovascular: no symptoms reported Gastrointestinal: loss of appetite Genitourinary: no symptoms reported Physical Exam Vital Signs Vital Signs - First Documented 10/20/18 10/20/18 17:37 21:35 Temp 92.0 Pulse 69 Resp 8 B/P (MAP) 106/68 (81) Pulse Ox 97 O2 Delivery Room Air O2 Flow Rate 2.00 Capillary Refill : Less Than 3 Seconds Height, Weight, BMI Height: 6'0.00" Weight: 215lbs. 0.0oz. 97.316329qd; 27.1 BMI Method:Stated General Appearance: No Apparent Distress, Thin Eyes: Bilateral Eye Normal Inspection HEENT: Normal ENT Inspection Neck: Normal Inspection, Non Tender Respiratory: Lungs Clear, No Accessory Muscle Use, No Respiratory Distress Cardiovascular: Regular Rate, Rhythm Gastrointestinal: Non Tender, Soft Assessment/Plan Assessment and Plan Pancytopenia. Debility. Hypothermia. Hypomagnesemia. Hypophosphatemia. Alcoholism. Tobacco usage. Hypothyroid. Admission Diagnosis Admission Status: Inpatient Order (span 2 midnights) Reason for Inpatient Admission: Sepsis. Hypothermia. Debility. Anemia. Hypoglycemia. Hypomagnesemia. Hypophosphatemia. Pancytopenia Clinical Quality Measures DVT/VTE Risk/Contraindication: Risk Factor Score Per Nursin RFS Level Per Nursing on Admit: 4+=Very High KEHINDE HERNANDEZ DO Oct 21, 2018 07:55
[2018-10-21] MEDS ORDERED: NS 100 ML (IVPB) BAG IV ONE (08:15)
[2018-10-21] MEDS ORDERED: RECEIVED CONTRAST (Hold Metformin) IV SCH (08:15)
[2018-10-21] MEDS ORDERED: IOHEXOL 350 MG/ML 100 ML (OMNIPAQUE 350) VIAL IV ONE (08:15)
[2018-10-21] MEDS: PANTOPRAZOLE 40 MG (PROTONIX) VIAL IV SCH (08:27)
--- NOTE | 2018-10-21 08:33 | Diagnostic Imaging Report ---
INDICATION: Hyponatremia, sepsis Portable chest 3:20 AM Heart size and pulmonary vascularity are normal. There are no infiltrates, effusions or pneumothoraces. There is a 7 mm nodule in the right lower lateral chest was not apparent on prior studies. Impression: Tiny pulmonary nodule right lower lateral lung. Further evaluation with CT chest recommended. Dictated by: Dictated on workstation # [id number]
--- NOTE | 2018-10-21 08:44 | NUR ---
PATIENT STATES HE IS NOT CURRENTLY TAKING ANY MEDICATIONS, PRESCRIPTION OR OTC.
[2018-10-21] MEDS ORDERED: LEVOTHYROXINE 50 MCG (LEVOTHROID) TAB PO ONE (09:15)
--- NOTE | 2018-10-21 09:41 | Physical Therapy Evaluation ---
PT Evaluation-General Medical Diagnosis Admission Date Oct 20, 2018 at 19:00 Medical Diagnosis: hypothermia/hyponatremia/anemia Onset Date: Oct 20, 2018 Therapy Diagnosis Therapy Diagnosis: generalized weakness/debility Height/Weight Height (Feet): 6 Height (Inches): 0.00 Weight (Pounds): 215 Weight (Ounces): 0.0 Precautions Precautions/Isolations: Fall Prevention, Standard Precautions, Pressure Ulcer Weight Bear Status Right Lower Extremity: Right Full Weight Bearing Left Lower Extremity: Left Full Weight Bearing Referral Physician: Melodie Reason for Referral: Evaluation/Treatment Medical History Pertinent Medical History: Alcoholism, COPD, Hypothroidism, Smoking Current History EMS secondary to unresponsive/per patient he was just sleeping Reviewed History: Yes Social History Home: Single Level Current Living Status: Alone w/c bound x 2 weeks Prior/[facility] Prior Level of Function Therapy Code Descriptions/Definitions Functional [place] Measure: 0=Not Assessed/NA 4=Minimal Assistance 1=Total Assistance 5=Supervision or Setup 2=Maximal Assistance 6=Modified [place] 3=Moderate Assistance 7=Complete [place] Therapy Quality Codes: 6 Independent with activity with or without an assistive device 5 Patient requires set up or clean up by helper. Patient completes activity by themselves 4 Supervision or touching assist (CGA). [place] provide cues , steadying assist 3 The helper provides less than half the effort to complete the activity 2 The helper provides more than half the effort to complete the activity 1 Dependent. The helper does all the effort to complete an activity 7 Patient refused to complete or attempt activity 9 The patient did not perform the activity before the current illness or injury 88 Not attempted due to Medical conditions or safety concerns Functional Abilities and Goals: Independent: Patient completed the activities by him/herself, with or without an assistive device, with no assistance from a helper. Needed Some Help: Patient needed partial assistance from another person to complete activities. Dependent: A helper completed the activities for the patient. Unknown: Not Applicable: Bed Mobility: 6 Transfers (B,C,W/C) (FIM): 6 Gait: 0 Stairs: 0 Wheelchair Mobility: 6 Indoor Mobility (Ambulation): Independent Prior Devices Use: Manual wheelchair PT Evaluation-Current Subjective Patient agrees to PT. Pain Numeric Pain Scale: 0-No Pain Location: No Pain Reported Objective Patient Orientation: Person, Time, Situation Problem Solving: Fair Attachments: Collazo Catheter, IV ROM/Strength ROM Lower Extremities bilateral LE WFL Strength Lower Extremities 3+/5 grossly bilaterally Integumentary/Posture Integumentary jaundice Bladder Incontinence: Collazo Cath Posture WFL Neuromuscular (Tone, Coordination, Reflexes) diminished coordination due to inactivity Sensory Vision: Functional Hearing: Functional Sensation Right Lower Extremit: Impaired Sensation Left Lower Extremity: Impaired Transfers Therapy Code Descriptions/Definitions Functional [place] Measure: 0=Not Assessed/NA 4=Minimal Assistance 1=Total Assistance 5=Supervision or Setup 2=Maximal Assistance 6=Modified [place] 3=Moderate Assistance 7=Complete [place] Transfers (B, C, W/C) (FIM): 4 Scootin Rollin Supine to/from Sit: 4 Sit to/from Stand: 4 minimal assist with all mobility and use of FWW with transfer bed to recliner Balance Sitting Static: Normal Sitting Dynamic: Normal Standing Static: Fair Standing Dynamic: Fair Assessment/Needs 63 y.o. male, will benefit from short term skilled PT to address functional strength and mobility to improve current LOF. Per patient, he would like to transfer to NH for extended stay to recover. Rehab Potential: Fair PT Imagery Analyst Goals Long-Term Goals PT Imagery Analyst Goals Time Frame: Oct 30, 2018 Transfers (B,C,W/C) (FIM): 5 Gait (FIM): 1 Gait distance (FIM): 1=up to 49 ft Distance: 10' Gait Level of Assist: 4 Gait Assistive Device: FWW PT Plan Problem List Problem List: Activity Tolerance, Functional Strength, Safety, Balance, Gait, Transfer, Bed Mobility Treatment/Plan Treatment Plan: Continue Plan of Care Treatment Plan: Bed Mobility, Education, Functional Activity [place], Functional Strength, Gait, Safety, Therapeutic Exercise, Transfers Treatment Duration: Oct 30, 2018 Frequency: 6 times per week Estimated Hrs Per Day: .5 hour per day Patient and/or Family Agrees t: Yes Discharge Recommendations Therapy D/C Recommendations: Detention Placement, Senior Care (TCU/NH) Time/GCodes Time In: 800 Time Out: 825 Total Billed Treatment Time: 25 Total Billed Treatment 1 visit EVModC 15 min FA 10 min G Codes Necessary: Yes PT/OT Therapy GCodes Therapy Functional Limitation: Physical Therapy Test(s)/Tool used to determine: Level of Assistance Scale Functional Limitation-Current Charge Code: MOBCUR Modifier: CK Functional Limitation-Goal Charge Code: MOBGOAL Modifier: BRENDEN STEVENSON PT Oct 21, 2018 09:41
[2018-10-21] MEDS ORDERED: SODIUM PHOSPHATE INJ 30 MM in NS (IVPB) 250 ML IV NR (10:00)
[2018-10-21] MEDS: MULTIVIT W/MINERALS TAB (THERAGRAN M) PO SCH (10:14)
[2018-10-21] MEDS: FOLIC ACID 1 MG TAB PO SCH (10:15)
[2018-10-21] MEDS: THIAMINE 100 MG (VITAMIN B-1) TAB PO SCH (10:15)
[2018-10-21] MEDS: ACETAMINOPHEN 500 MG TAB (TYLENOL) PO PRN (10:15)
--- NOTE | 2018-10-21 10:18 | Diagnostic Imaging Report ---
PROCEDURE: CT angiography of the head and CT angiography of the neck with and without contrast. TECHNIQUE: Contiguous noncontrast images were obtained from the skull base through the vertex. After intravenous contrast administration, helical CT angiography of the neck was performed. Source data was reformatted into multiple MIP projections. Delayed post contrast acquisition was also obtained. INDICATION: Weakness and possible stroke. FINDINGS: Precontrast images through the brain demonstrate ventricles and sulci to be prominent consistent with cerebral atrophy. There is moderate periventricular hypodensity noted consistent with chronic microvascular ischemia. There is no sulcal effacement or midline shift. No acute intra-axial or extra-axial hemorrhage is detected. The delayed postcontrast images are without abnormal enhancement. CT angiogram through the neck demonstrates the common carotid arteries to be patent. There is some plaque in the mid and distal right CCA. There is plaquing at the carotid bifurcations bilaterally. Both internal carotid arteries are widely patent. Bilateral vertebral arteries appear to be patent. Right vertebral artery is dominant. CT angiogram through the brain demonstrates the basilar artery to be widely patent. Bilateral posterior cerebral arteries are patent. Distal internal carotid arteries cavernous carotids are widely patent. Bilateral middle cerebral arteries appear to be patent. Bilateral anterior cerebral arteries are patent. No filling defect to suggest thromboembolism is seen. No aneurysm is identified. IMPRESSION: There is mild carotid plaquing. No carotid stenosis is identified. No evidence of thromboemboli or aneurysm are seen. Dictated by: Dictated on workstation # [id number]
--- NOTE | 2018-10-21 10:22 | Diagnostic Imaging Report ---
INDICATION: Chronic low back pain. TIME OF EXAMINATION: 10:09 a.m. FINDINGS: Three views of the lumbar spine were obtained. Curvature and alignment is normal. The vertebral body heights are maintained. No acute compression fracture is seen. There is degenerative disc disease at L4-L5 and L5-S1 levels with disc space narrowing and marginal spurring. Aorta is calcified. IMPRESSION: Lower lumbar spondylosis. No acute bony abnormality is detected. Dictated by: Dictated on workstation # [id number]
[2018-10-21] MEDS: NOREPINEPHRINE 4 MG in NS (IVPB) 250 ML IV SCH (11:16)
--- NOTE | 2018-10-21 11:42 | NUR ---
Pastoral Care Visit.
--- NOTE | 2018-10-21 12:21 | NUR ---
MESSAGE LEFT W/ [facility] STAFF REGARDING NEW CONSULT FOR DR BANKS.
[2018-10-21] MEDS: HYDROCORTISONE 100 MG/2 ML (Solu-CORTEF) VIAL IV SCH (13:56)
--- NOTE | 2018-10-21 14:45 | Occupational Therapy Eval ---
OT Evaluation-General/PLF Medical Diagnosis Admission Date Oct 20, 2018 at 19:00 Medical Diagnosis: hypothermia/hyponatremia/anemia Onset Date: Oct 20, 2018 Therapy Diagnosis Therapy Diagnosis: Decreased ADL skills Height/Weight Height (Feet): 6 Height (Inches): 0.00 Weight (Pounds): 215 Weight (Ounces): 0.0 Precautions Precautions/Isolations: Fall Prevention, Standard Precautions, Pressure Ulcer Safety Interventions: Bed Exit Alarm Weight Bear Status Weight Bearing Restriction: Weight Bearing/Tolerated Referral Physician: Meloide Referral Reason: Activity Tolerance, Self Care, Evaluation/Treatment, Strengthening/ROM Medical History Pertinent Medical History: Alcoholism, COPD, Hypothroidism, Smoking Additional Medical History thyroid disease Current History Pt. found unresponsive at home. Pt. has difficulty reporting why or who found him. Reviewed History: Yes Social History Home: Single Level Current Living Status: Alone Entry Into Home: Stairs With Railing Steps Into Home: 3 ADL-Prior Level of Function Therapy Code Descriptions/Definitions Functional [place] Measure: 0=Not Assessed/NA 4=Minimal Assistance 1=Total Assistance 5=Supervision or Setup 2=Maximal Assistance 6=Modified [place] 3=Moderate Assistance 7=Complete [place] Therapy Quality Codes: 6 Independent with activity with or without an assistive device 5 Patient requires set up or clean up by helper. Patient completes activity by themselves 4 Supervision or touching assist (CGA). [place] provide cues , steadying assist 3 The helper provides less than half the effort to complete the activity 2 The helper provides more than half the effort to complete the activity 1 Dependent. The helper does all the effort to complete an activity 7 Patient refused to complete or attempt activity 9 The patient did not perform the activity before the current illness or injury 88 Not attempted due to Medical conditions or safety concerns Functional Abilities and Goals: Independent: Patient completed the activities by him/herself, with or without an assistive device, with no assistance from a helper. Needed Some Help: Patient needed partial assistance from another person to complete activities. Dependent: A helper completed the activities for the patient. Unknown: Not Applicable: ADL PLOF Comments Pt. states that he used to have a service dog, but that she recently. Since then he has been "going down hill." Pt. states that she would pick things up for him off floor, or check on him frequently. Pt. states that he was able to bathe and dress himself, but only completed spongebaths. States that he was afraid of the shower. Upon talking with pt., pt. states that he was in [place]. Became tearful. Self Care: Unknown Functional Cognition: Unknown DME/Equipment Comments Pt. has a walker and states that he used to have a wheelchair. OT Current Status Subjective Pt. does not report pain. Appearance Pt. up in chair. Eating lunch. Noted that pt. was wet on pad underneath. Encouraged pt. to participate so that OT could assist with cleansing. Mental Status/Objective Patient Orientation: Unable to Assess Pt. has difficulty staying on task and has to be re-directed. Attachments: IV, Oxygen Current Upper Extremity ROM Pt. able to flex bilateral shoulders to approximately 90 degrees. States that this is from arthritis. ADL-Treatment Therapy Code Descriptions/Definitions Functional [place] Measure: 0=Not Assessed/NA 4=Minimal Assistance 1=Total Assistance 5=Supervision or Setup 2=Maximal Assistance 6=Modified [place] 3=Moderate Assistance 7=Complete [place] Therapy Quality Codes: 6 Independent with activity with or without an assistive device 5 Patient requires set up or clean up by helper. Patient completes activity by themselves 4 Supervision or touching assist (CGA). [place] provide cues , steadying assist 3 The helper provides less than half the effort to complete the activity 2 The helper provides more than half the effort to complete the activity 1 Dependent. The helper does all the effort to complete an activity 7 Patient refused to complete or attempt activity 9 The patient did not perform the activity before the current illness or injury 88 Not attempted due to Medical conditions or safety concerns Eating (FIM): 5 (Set up. Pt. takes increased time to chew food.) Bathing (FIM): 2 (Pt. is given hot pack cloths and encouraged to wash self. Pt. "dabs" at parts, but does not cleanse well. OT assisted with washing back and bernie areas in stance.) Lower Body Dressing (FIM): 4 (Pt. able to doff/don socks with CGA to bend over. No other street clothing available.) Toileting (FIM): 2 (Pt. has catheter in, but noted that urine was in seat. This may have been from before catheter was put in.) Transfers (B, C, W/C) (FIM): 2 (Pt. required max assist to stand from chair.) Other Treatments Pt. stood from chair with max assist to allow OT to wash bernie area. Pt. was encouraged to try, but could not let go of his walker. In sitting, pt. attempted to wash front bernie area, but did not cleanse thoroughly. Pt. has difficulty staying on topic. States that he was taking care of himself, but states that now he can "afford" to hire someone to take care of him. Pt. reports that he is going to a skilled nursing. Pt. does require assistance at this time. Education OT Patient Education: Correct positioning, Modified ADL techniques, Progress toward Goal/Update tx plan, Purpose of tx/functional activities, Reviewed precautions, Rehab process, Transfer techniques Teaching Recipient: Patient Teaching Methods: Demonstration, Discussion Response to Teaching: Verbalize Understanding, Return Demonstration OT Short Term Goals Short Term Goals Time Frame: Oct 28, 2018 Eating(FIM): 5 Grooming(FIM): 5 Bathing(FIM): 4 Upper Body Dressing(FIM): 4 Lower Body Dressing(FIM): 3 Toileting(FIM): 3 Transfers (B,C,W/C) (FIM): 4 Toilet/Commode Transfer(FIM): 4 Shower Transfer(FIM): 3 Additional Short Term Goals: 1-Demonstrate ADL Tasks, 2-Verbalize Understanding , 3-ImproveStrength/[place] 1=Demonstrate adherence to instructed precautions during ADL tasks. 2=Patient will verbalize/demonstrate understanding of assistive devices/ modifications for ADL. 3=Patient will improve strength/tolerance for activity to enable patient to perform ADL's. OT Prison Goals Prison Goals Time Frame: Nov 04, 2018 Eating (FIM): 6 Grooming(FIM): 6 Bathing(FIM): 5 Upper Body Dressing(FIM): 5 Lower Body Dressing(FIM): 5 Toileting(FIM): 6 Transfers (B,C,W/C) (FIM): 6 Toilet/Commode Transfer(FIM): 6 Shower Transfer(FIM): 5 Additional Goals: 1-Demonstrate ADL Tasks, 2-Verbalize Understanding, 3- ImproveStrength/[place] 1=Demonstrate adherence to instructed precautions during ADL tasks. 2=Patient will verbalize/demonstrate understanding of assistive devices/ modifications for ADL. 3=Patient will improve strength/tolerance for activity to enable patient to perform ADL's. OT Education/Plan Problem List/Assessment Assessment: Decreased Activ Tolerance, Decreased UE Strength, Dependent Transfers, Impaired Bed Mobility, Impaired Cognition, Impaired Coordination, Impaired Funct Balance, Impaired I ADL's, Impaired Self-Care Skills, Restricted Funct UE ROM Discharge Recommendations Plan/Recommendations: Continue POC Therapy D/C Recommendations: 24 hr Supervision Treatment Plan/Plan of Care Treatment,Training & Education: Yes Patient would benefit from OT for education, treatment and training to promote independence in ADL's, mobility, safety and/or upper extremity function for ADL' s. Plan of Care: ADL Retraining, Functional Mobility, UE Funct Exercise/Act Treatment Duration: Nov 04, 2018 Frequency: 5 times per week Estimated Hrs Per Day: .25 hour per day Agreement: Yes Rehab Potential: Fair Time/GCodes Start Time: 11:45 Stop Time: 12:15 Total Time Billed (hr/min): 30 Billed Treatment Time 1, EVH x 15minutes, ADL x 15minutes PT/OT Therapy GCodes Therapy Functional Limitation: Physical Therapy Test(s)/Tool used to determine: Level of Assistance Scale Functional Limitation-Current Charge Code: MOBCUR Modifier: CK Functional Limitation-Goal Charge Code: MOBGOAL Modifier: LEDA JONES OT Oct 21, 2018 14:44
--- NOTE | 2018-10-21 18:28 | Consultation ---
History of Present Illness History of Present Illness Patient Consulted On(ellen/time) 10/21/18 18:20 Date Seen by Provider: Oct 21, 2018 Time Seen by Provider: 18:20 History of Present Illness Mr. Carvalho is a 63 yo male with hypothyroidism, alcohol abuse, chronic liver disease, Wernickes encephalopathy who was admitted on 10/20/18 after being found unresponsive at home. He was noted to be hypothermic at 90 degrees F. On presentation to the ED, he was found to have WBC 2.2, hgb 7.5, MCV 99, plt 27 , ANC 1.4, ALC 0.8, lactic acid of 2.47, PT 15.7, INR 1.3, PTT 34, TSH 65.16, t bili 1.9, AST 49, ALT 22, alk phos 92, t protein 5.3. Patient has been chair bound for the last 2 weeks due to debility and his PO intake has been poor. Patient reports that ever since his service dog in June, he has been feeling depressed and stopped eating. He sat in his chair and wondered for a long time whether it was worth living. As a result, he believes he has been declining for 2 months now but only recently has he not been able to get out of a chair. He only noticed bruising on his arms in the past few days. He did not notice any bleeding. The last time he saw a doctor was when [facility] 2016 after an admission for acute alcohol intoxication. He has been unable to secure reliable transportation. Allergies and Home Medications Allergies Coded Allergies: No Known Drug Allergies (Unverified , 09/17/12) Home Medications No Active Prescriptions or Reported Meds Patient Home Medication List Home Medication List Reviewed: Yes Past Jxvabci-Ztbrpt-Dqlkkl Hx Patient Social History Alcohol Use: Denies Use Number of Drinks Today: GG Alcohol Beverage of Choice: Whiskey Recreational Drug Use: No Smoking Status: Current Everyday Smoker Type Used: Cigarettes 2nd Hand Smoke Exposure: Yes Recent Foreign Travel: No Contact w/Someone Who Travel: No Recent Infectious Disease Expo: No Recent Hopitalizations: No Physical Abuse: No Sexual Abuse: No Immunizations Up To Date Tetanus Booster (TDap): Less than 5yrs Seasonal Allergies Seasonal Allergies: No Past Medical History Surgeries: No Respiratory: Yes COPD Currently Using CPAP: No Cardiac: No Neurological: No Reproductive Disorders: No Gastrointestinal: No Musculoskeletal: Yes Arthritis, Back Injury, Chronic Back Pain Endocrine: Yes (thyroid disease) Hypothyroidsim Hearing Impairment: Hard of Hearing Cancer: No Psychosocial: No Integumentary: No Blood Disorders: No Adverse Reaction/Blood Tranf: No Family Medical History Patient reports no known family medical history. Review of Systems-General Constitutional: dizziness, malaise, weakness, weight loss EENTM: no symptoms reported Respiratory: short of breath Cardiovascular: no symptoms reported Gastrointestinal: No hematemesis; loss of appetite; No melena Genitourinary: no symptoms reported; No hematuria Musculoskeletal: back pain, joint pain, muscle weakness Skin: change in color Psychiatric/Neurological: Depressed Physical Exam-General Problems Physical Exam Vital Signs Vital Signs - First Documented 10/20/18 10/20/18 17:37 21:35 Temp 92.0 Pulse 69 Resp 8 B/P (MAP) 106/68 (81) Pulse Ox 97 O2 Delivery Room Air O2 Flow Rate 2.00 Capillary Refill : Less Than 3 Seconds General Appearance: no apparent distress, thin Eyes: Bilateral Eye Normal Inspection, Bilateral Eye EOMI HEENT: PERRL/EOMI, pharynx normal Neck: non-tender, full range of motion, normal inspection Respiratory: chest non-tender, lungs clear, normal breath sounds, no respiratory distress, no accessory muscle use Cardiovascular: regular rate, rhythm; No no edema Gastrointestinal: normal bowel sounds, non tender, soft Extremities: normal range of motion, non-tender Neurologic/Psychiatric: alert, normal mood/affect, oriented x 3 Skin: ecchymosis (extensive over distal arms and hands, primarily extensor surfaces) Assessment/Plan Assessment/Plan Admission Diagnosis/Plan 63 yo male admitted with urosepsis after being found unresponsive at home. He was noted to have pancytopenia. His last admission was in 2016, and at that time, he was similarly pancytopenic. After review of older records, patient has been intermittently pancytopenic since 2012. No alcohol was found in his blood tests this admission and patient reports last alcoholic beverage was several days ago. He has been poorly compliant with his chronic medications. Etiology of his pancytopenia is multifactorial. He has documented chronic liver disease. He also has poor diet, uncontrolled hypothyroidism and alcohol toxicity. MCV is borderline high, suggesting possible nutritional deficiencies and hypothyroidism, and reticulocyte count is low, suggesting nutritional deficiency and/or marrow suppression. The acute component is probably acute illness and sepsis. Since his admission, his blood counts have been relatively stable. I doubt he has a primary bone marrow disorder. Although platelets are quite low and he has extensive ecchymoses, he has no evidence of major bleeding , so he does not need any platelet transfusions. I will follow up on his peripheral smear, but unless there are any findings of acute leukemia or thrombotic microangiopathy, we will likely defer a bone marrow evaluation to the outpatient setting. What I would suggest now is a basic laboratory anemia evaluation. Peripheral smear is pending, to be interpreted by pathology. Check iron panel, ferritin, vitamin B12, folate, copper, serum protein electrophoresis, serum free light chains. Admission Status: Inpatient Order (span 2 midnights) Clinical Quality Measures DVT/VTE Risk/Contraindication: Risk Factor Score Per Nursin RFS Level Per Nursing on Admit: 4+=Very High Contraindications-Pharm: Other *list below* Results Labs Labs Laboratory Tests 10/20/18 18:56: Lactic Acid Level 2.47*H 10/20/18 20:07: Urine Color AMBERH, Urine Clarity SL CLOUDY, Urine pH 6.5, Urine Specific [place] 1.010L, Urine Protein 1+H, Urine Glucose (UA) NEGATIVE, Urine Ketones 2+ H, Urine Nitrite POSITIVEH, Urine Bilirubin 2+H, Urine Urobilinogen 8H, Urine Leukocyte Esterase 1+H, Urine RBC (Auto) NEGATIVE, Urine RBC NONE, Urine WBC 0-2 , Urine Crystals NONE, Urine Bacteria MODERATEH, Urine Casts NONE, Urine Mucus NEGATIVE, Urine Culture Indicated NO 10/20/18 21:05: Lactic Acid Level 1.73 10/20/18 23:35: White Blood Count 2.3L, Red Blood Count 2.27L, Hemoglobin 8.0L, Hematocrit 23L, Mean Corpuscular Volume 99, Mean Corpuscular Hemoglobin 35H, Mean Corpuscular Hemoglobin Concent 36, Red Cell Distribution Width 13.6, Platelet Count 27*L, Mean Platelet Volume 10.4, Neutrophils (%) (Auto) 60, Lymphocytes (%) (Auto) 35 , Monocytes (%) (Auto) 3, Eosinophils (%) (Auto) 1, Basophils (%) (Auto) 1, Neutrophils # (Auto) 1.4L, Lymphocytes # (Auto) 0.8L, Monocytes # (Auto) 0.1, Eosinophils # (Auto) 0.0, Basophils # (Auto) 0.0, Neutrophils % (Manual) 58, Lymphocytes % (Manual) 37, Monocytes % (Manual) 1, Eosinophils % (Manual) 2, Basophils % (Manual) 0, Band Neutrophils 2, Hypochromasia SLIGHT, Poikilocytosis SLIGHT, Target Cells SLIGHT, Tear Drop Cells SLIGHT, Crenated Cell SLIGHT, Absolute Reticulocyte Count 2L, Percent Reticulocyte Count 0.07L, Prothrombin Time 15.4H, INR Comment 1.2 10/21/18 03:10: White Blood Count 2.1L, Red Blood Count 2.18L, Hemoglobin 7.6L, Hematocrit 22L, Mean Corpuscular Volume 99, Mean Corpuscular Hemoglobin 35H, Mean Corpuscular Hemoglobin Concent 35, Red Cell Distribution Width 13.8, Platelet Count 25*L, Mean Platelet Volume 10.5H, Neutrophils (%) (Auto) 56, Lymphocytes (%) (Auto) 38 , Monocytes (%) (Auto) 4, Eosinophils (%) (Auto) 1, Basophils (%) (Auto) 1, Neutrophils # (Auto) 1.2L, Lymphocytes # (Auto) 0.8L, Monocytes # (Auto) 0.1, Eosinophils # (Auto) 0.0, Basophils # (Auto) 0.0, Sodium Level 130L, Potassium Level 3.9, Chloride Level 93L, Carbon Dioxide Level 21, Anion Gap 16H, Blood Urea Nitrogen 13, Creatinine 0.72, Estimat Glomerular Filtration Rate > 60, BUN/ Creatinine Ratio 18, Glucose Level 84, Calcium Level 7.6L, Corrected Calcium 7.9L, Phosphorus Level 2.0L, Magnesium Level 1.4L, Total Bilirubin 1.7H, Aspartate Amino Transf (AST/SGOT) 43H, Alanine Aminotransferase (ALT/SGPT) 20, Alkaline Phosphatase 100, Total Protein 5.6L, Albumin 3.6 10/21/18 05:30: Lactic Acid Level 1.22 10/21/18 06:36: Ammonia 23, Thyroid Stimulating Hormone (TSH) 65.16H, Free Thyroxine < 0.40L 10/21/18 07:29: Urine Opiates Screen NEGATIVE, Urine Oxycodone Screen NEGATIVE, Urine Methadone Screen NEGATIVE, Urine Propoxyphene Screen NEGATIVE, Urine Barbiturates Screen NEGATIVE, Ur Tricyclic Antidepressants Screen NEGATIVE, Urine Phencyclidine Screen NEGATIVE, Urine Amphetamines Screen NEGATIVE, Urine Methamphetamines Screen NEGATIVE, Urine Benzodiazepines Screen NEGATIVE, Urine Cocaine Screen NEGATIVE, Urine Cannabinoids Screen NEGATIVE Microbiology 10/20/18 Blood Culture - Preliminary, Resulted No growth 10/20/18 Urine Culture - Preliminary, Resulted Enterococcus faecalis CHEN BANKS MD Oct 21, 2018 18:28
[2018-10-21] MEDS: cefTRIAXone 1 GM/NS 50 ML IVPB IV SCH ×2 (21:35)
[2018-10-21] MEDS ORDERED: LACTATED RINGERS 500 ML IV SCH (22:45)
[2018-10-22] VITALS (32 sets, daily range): BP systolic 70–123; BP diastolic 37–88
[2018-10-22] MEDS: HYDROCORTISONE 100 MG/2 ML (Solu-CORTEF) VIAL IV SCH ×4 (00:30→21:52)
[2018-10-22] MEDS: NOREPINEPHRINE 4 MG in NS (IVPB) 250 ML IV SCH ×2 (01:09→13:35)
[2018-10-22] MEDS: 1/2 NS W/KCL 20 MEQ/L 1,000 ML IV SCH (01:17)
[2018-10-22] MEDS: NS IV 1000 ML 1,000 ML IV SCH ×5 (01:55→20:56)
[2018-10-22 03:55] LABS: BASOPHILS % (AUTO) 0 % (0-10); EOSINOPHILS % (AUTO) 0 % (0-10); LYMPHOCYTES # (AUTO) 0.7 X 10^3 (1.0-4.0); LYMPHOCYTES % (AUTO) 24 % (12-44); MEAN CORPUSCULAR HEMOGLOBIN 34 PG (25-34); MEAN CORPUSCULAR HGB CONC 35 G/DL (32-36); MEAN CORPUSCULAR VOLUME 97 FL (80-99); MEAN PLATELET VOLUME 10.9 FL (7.4-10.4); MONOCYTES # (AUTO) 0.1 X 10^3 (0.0-1.0); MONOCYTES % (AUTO) 3 % (0-12); NEUTROPHILS # (AUTO) 2.3 X 10^3 (1.8-7.8); NEUTROPHILS % (AUTO) 74 % (42-75); RED BLOOD COUNT 2.07 10^6/uL (4.35-5.85); WHITE BLOOD COUNT 3.1 10^3/uL (4.3-11.0)
[2018-10-22 03:57] LABS: HEMATOCRIT 20 % (40-54); PLATELET COUNT 24 10^3/uL (130-400)
[2018-10-22 04:20] LABS: ALANINE AMINOTRANSFERASE 17 U/L (0-55); ALBUMIN 3.3 GM/DL (3.2-4.5); ALKALINE PHOSPHATASE 91 U/L (40-136); BILIRUBIN,TOTAL 1.1 MG/DL (0.1-1.0); BUN/CREATININE RATIO 14; CALCIUM 7.1 MG/DL (8.5-10.1); CARBON DIOXIDE 20 MMOL/L (21-32); CHLORIDE 94 MMOL/L (98-107); GFR ESTIMATED > 60; GLUCOSE 141 MG/DL (70-105); MAGNESIUM 1.4 MG/DL (1.8-2.4); PHOSPHORUS 2.9 MG/DL (2.3-4.7); SODIUM 126 MMOL/L (135-145)
[2018-10-22] MEDS: MAGNESIUM 1 GM/100 ML IVPB 100 ML IV SCH ×3 (05:11→08:18)
[2018-10-22] MEDS: KCL 20 MEQ TAB (K-DUR) PO SCH (05:11)
[2018-10-22] MEDS: POTASSIUM CL 10MEQ/50ML IVPB 50 ML IV SCH (05:11)
[2018-10-22] MEDS ORDERED: HYDROCORTISONE 100 MG/2 ML (Solu-CORTEF) VIAL IV SCH (06:00)
--- NOTE | 2018-10-22 06:04 | Pulmonary Progress Note ---
Subjective Time Seen by a Provider: 06:27 Subjective/Events-last exam Pt is hypotensive this morning with SBP in the 80's Sepsis Event Evaluation Height, Weight, BMI Height: 6'0.00" Weight: 215lbs. 0.0oz. 97.556219zn; 27.1 BMI Method:Stated Focused Exam Lactate Level 10/20/18 18:56: Lactic Acid Level 2.47*H 10/20/18 21:05: Lactic Acid Level 1.73 10/21/18 05:30: Lactic Acid Level 1.22 Exam Exam Vital Signs Date Time Temp Pulse Resp B/P (MAP) Pulse Ox O2 Delivery O2 Flow Rate FiO2 10/22/18 05:05 60 12 89/66 (74) 96 Room Air 10/22/18 04:00 Room Air 10/22/18 04:00 61 10 91/65 (74) 97 Room Air 10/22/18 03:00 64 16 92/65 (74) 93 Room Air 10/22/18 02:00 63 16 84/66 (72) 94 Room Air 10/22/18 01:00 63 10/22/18 01:00 63 12 95/64 (74) 94 Room Air 10/22/18 00:00 Room Air 10/22/18 00:00 64 18 92 Room Air 10/21/18 23:00 65 14 100/68 (79) 97 Room Air 10/21/18 22:15 71 13 93/72 (79) 97 Room Air 10/21/18 22:00 65 10 82/59 (67) 96 Room Air 10/21/18 21:00 68 27 90/65 (73) 95 Room Air 10/21/18 20:15 66 22 95/61 (72) 96 Room Air 10/21/18 20:00 69 9 88/61 (70) 96 Room Air 10/21/18 20:00 Room Air 10/21/18 19:52 96.7 Room Air 10/21/18 19:33 67 10/21/18 19:00 67 10 109/70 (83) 95 Room Air 10/21/18 18:00 65 31 111/72 (85) 96 Room Air 10/21/18 17:00 63 10 101/66 (78) 95 Room Air 10/21/18 16:00 61 17 95/61 (72) 97 Room Air 10/21/18 15:52 Room Air 10/21/18 15:40 96.9 62 16 98/66 (77) 96 Room Air 10/21/18 15:00 63 12 100/64 (76) 97 Room Air 10/21/18 14:00 62 6 103/72 (82) 99 Room Air 10/21/18 13:05 78 10/21/18 13:00 68 24 101/67 (78) 99 Room Air 10/21/18 12:14 Room Air 10/21/18 12:00 70 12 106/68 (81) 98 Room Air 10/21/18 11:15 97.3 10/21/18 11:00 71 102/69 (80) Room Air 10/21/18 10:00 79 96/79 (85) Room Air 10/21/18 09:00 78 9 78/62 (67) 100 Room Air 10/21/18 08:30 Room Air 10/21/18 08:00 97.4 10/21/18 08:00 66 7 103/67 (79) 100 Room Air 10/21/18 07:00 72 10/21/18 07:00 56 10 94/65 (75) 100 Room Air 10/21/18 06:00 66 10 100/64 (76) 100 Room Air I & O 10/22/18 07:00 Intake Total 4010 ml Output Total 395 ml Balance 3615 ml Height & Weight Height: 6'0.00" Weight: 215lbs. 0.0oz. 97.231795yf; 27.1 BMI Method:Stated General Appearance: No Apparent Distress, Thin HEENT: Normal ENT Inspection Neck: Normal Inspection, Non Tender Respiratory: Lungs Clear, No Accessory Muscle Use, No Respiratory Distress Cardiovascular: Regular Rate, Rhythm Capillary Refill: Less Than 3 Seconds Gastrointestinal: normal bowel sounds, non tender, soft Extremity: Normal Capillary Refill, Normal Inspection, Normal Range of Motion, Non Tender, No Calf Tenderness, No Pedal Edema Neurologic/Psychiatric: Alert, Oriented x3, Normal Mood/Affect Skin: Normal Color, Warm/Dry, Ecchymosis (ecchymosis to bilateral upper extremities. Patient denies injuries.) Results Lab Laboratory Tests 10/20/18 18:00 10/20/18 23:35 10/21/18 03:10 10/22/18 03:10 Assessment/Plan Assessment/Plan UTI with severe sepsis -Sepsis protocol Severe dehydration -aggressive IVF Worsening anemia with Hypotension and thrombocytopenia -Transfuse 2 units PRBC -1 6pk platelets x 1 -Solucortef Severe hypothyroid -Synthroid restarted -Increase to 100mcg daily PO -Pt wasnt taking it at home Weakness/debility -CT of head- is negative Pancytopenia -oncology is following SOM ALTMAN DO Oct 22, 2018 06:04
[2018-10-22] MEDS ORDERED: NS IV 500 ML 500 ML ONE (06:13)
[2018-10-22] MEDS ORDERED: LEVOTHYROXINE 100 MCG (LEVOTHROID) TAB ONE (06:16)
[2018-10-22] MEDS ORDERED: NS IV 500 ML 500 ML IV ONE ×2 (06:30→10:00)
[2018-10-22] MEDS ORDERED: LEVOTHYROXINE 50 MCG (LEVOTHROID) TAB PO SCH (06:30)
[2018-10-22] MEDS: MULTIVIT W/MINERALS TAB (THERAGRAN M) PO SCH (06:34)
[2018-10-22] MEDS: THIAMINE 100 MG (VITAMIN B-1) TAB PO SCH (06:34)
[2018-10-22] MEDS: FOLIC ACID 1 MG TAB PO SCH (06:34)
[2018-10-22] MEDS: LEVOTHYROXINE 50 MCG (LEVOTHROID) TAB PO SCH (06:35)
--- NOTE | 2018-10-22 07:27 | Diagnostic Imaging Report ---
INDICATION: Chronic anemia. Sepsis. COMPARISON: 10/21/2018 FINDINGS: Single frontal view of the chest demonstrates normal heart size and pulmonary vascularity. The lungs are well aerated and clear. No large pleural effusion or pneumothorax is seen. The visualized osseous structures show no acute abnormalities. IMPRESSION: 1. No acute cardiopulmonary process. Dictated by: Dictated on workstation # [id number]
--- NOTE | 2018-10-22 07:47 | Progress Note (SOAP) ---
Subjective Time Seen by a Provider: 07:44 Subjective/Events-last exam Patient resting comfortably. Patient feels weak Patient has some back pain. Patient anemic hemoglobin 7. Thrombocytopenia platelet count 24,000 UTI. Sepsis. Hypothyroid. Hypotensive Focused Exam Lactate Level 10/20/18 18:56: Lactic Acid Level 2.47*H 10/20/18 21:05: Lactic Acid Level 1.73 10/21/18 05:30: Lactic Acid Level 1.22 Objective Exam Vital Signs Date Time Temp Pulse Resp B/P (MAP) Pulse Ox O2 Delivery O2 Flow Rate FiO2 10/22/18 06:00 62 9 102/71 (81) 94 Room Air 10/22/18 05:05 60 12 89/66 (74) 96 Room Air 10/22/18 04:00 Room Air 10/22/18 04:00 61 10 91/65 (74) 97 Room Air 10/22/18 03:00 64 16 92/65 (74) 93 Room Air 10/22/18 02:00 63 16 84/66 (72) 94 Room Air 10/22/18 01:00 63 10/22/18 01:00 63 12 95/64 (74) 94 Room Air 10/22/18 00:00 Room Air 10/22/18 00:00 64 18 92 Room Air 10/21/18 23:00 65 14 100/68 (79) 97 Room Air 10/21/18 22:15 71 13 93/72 (79) 97 Room Air 10/21/18 22:00 65 10 82/59 (67) 96 Room Air 10/21/18 21:00 68 27 90/65 (73) 95 Room Air 10/21/18 20:15 66 22 95/61 (72) 96 Room Air 10/21/18 20:00 69 9 88/61 (70) 96 Room Air 10/21/18 20:00 Room Air 10/21/18 19:52 96.7 Room Air 10/21/18 19:33 67 10/21/18 19:00 67 10 109/70 (83) 95 Room Air 10/21/18 18:00 65 31 111/72 (85) 96 Room Air 10/21/18 17:00 63 10 101/66 (78) 95 Room Air 10/21/18 16:00 61 17 95/61 (72) 97 Room Air 10/21/18 15:52 Room Air 10/21/18 15:40 96.9 62 16 98/66 (77) 96 Room Air 10/21/18 15:00 63 12 100/64 (76) 97 Room Air 10/21/18 14:00 62 6 103/72 (82) 99 Room Air 10/21/18 13:05 78 10/21/18 13:00 68 24 101/67 (78) 99 Room Air 10/21/18 12:14 Room Air 10/21/18 12:00 70 12 106/68 (81) 98 Room Air 10/21/18 11:15 97.3 10/21/18 11:00 71 102/69 (80) Room Air 10/21/18 10:00 79 96/79 (85) Room Air 10/21/18 09:00 78 9 78/62 (67) 100 Room Air 10/21/18 08:30 Room Air 10/21/18 08:00 97.4 10/21/18 08:00 66 7 103/67 (79) 100 Room Air I & O 10/22/18 07:00 Intake Total 4060 ml Output Total 735 ml Balance 3325 ml Capillary Refill : Less Than 3 Seconds General Appearance: No Apparent Distress, Thin HEENT: Normal ENT Inspection Neck: Full Range of Motion, Normal Inspection Respiratory: No Accessory Muscle Use, No Respiratory Distress, Decreased Breath Sounds Cardiovascular: Regular Rate, Rhythm, No Murmur Gastrointestinal: non tender, soft Results Lab Laboratory Tests 10/22/18 03:10 Laboratory Tests 10/22/18 03:10: White Blood Count 3.1L, Red Blood Count 2.07L, Hemoglobin 7.0L, Hematocrit 20*L , Mean Corpuscular Volume 97, Mean Corpuscular Hemoglobin 34, Mean Corpuscular Hemoglobin Concent 35, Red Cell Distribution Width 13.0, Platelet Count 24*L, Mean Platelet Volume 10.9H, Neutrophils (%) (Auto) 74, Lymphocytes (%) (Auto) 24 , Monocytes (%) (Auto) 3, Eosinophils (%) (Auto) 0, Basophils (%) (Auto) 0, Neutrophils # (Auto) 2.3, Lymphocytes # (Auto) 0.7L, Monocytes # (Auto) 0.1, Eosinophils # (Auto) 0.0, Basophils # (Auto) 0.0, Sodium Level 126L, Potassium Level 4.0, Chloride Level 94L, Carbon Dioxide Level 20L, Anion Gap 12, Blood Urea Nitrogen 10, Creatinine 0.70, Estimat Glomerular Filtration Rate > 60, BUN/ Creatinine Ratio 14, Glucose Level 141H, Calcium Level 7.1L, Corrected Calcium 7.7L, Phosphorus Level 2.9, Magnesium Level 1.4L, Total Bilirubin 1.1H, Aspartate Amino Transf (AST/SGOT) 35H, Alanine Aminotransferase (ALT/SGPT) 17, Alkaline Phosphatase 91, Total Protein 5.0L, Albumin 3.3 Microbiology 10/20/18 Blood Culture - Preliminary, Resulted No growth 10/20/18 Urine Culture - Preliminary, Resulted Enterococcus faecalis Assessment/Plan Assessment/Plan Assess & Plan/Chief Complaint Sepsis. UTI. Chronic liver disease. Alcoholism. Hypotension. Pancytopenia. Anemia. Hypothyroid. Weakness. Clinical Quality Measures Admission Status Admission Dx Pancytopenia. Debility. Hypothermia. Hypomagnesemia. Hypophosphatemia. Alcoholism. Tobacco usage. Hypothyroid. DVT/VTE Risk/Contraindication: Risk Factor Score Per Nursin RFS Level Per Nursing on Admit: 4+=Very High Contraindications-Pharm: Other *list below* ADEN HERNANDEZ DO Oct 22, 2018 07:47
[2018-10-22] MEDS: PANTOPRAZOLE 40 MG (PROTONIX) VIAL IV SCH (08:16)
[2018-10-22] MEDS ORDERED: VANCOMYCIN INJECTION 0.1 MG in NS (IVPB) 250 ML IV SCH (08:45)
--- NOTE | 2018-10-22 08:52 | NUR ---
VANCOMYCIN DOSING SCR 0.7; CRCL ~ 117; BOLUS VANC 20 MG/KG X 99 KG ~ 2 GM THEN VANC 15 MG/KG ~ 1500 MG Q12H CHECK TROUGH LEVEL 10/23 2000 HOLD DOSE AND CONTACT PHARMACY IF LEVEL IS GREATER THAN 20
[2018-10-22] MEDS ORDERED: VANCOMYCIN INJECTION 2,000 MG in NS IV 500 ML 500 ML IV NR (09:00)
--- NOTE | 2018-10-22 09:58 | NUR ---
CM/SS spoke to the patient in regards to the SS consult. Patient is wanting to go SNF at discharge. His preference for facility would be [facility].
--- NOTE | 2018-10-22 10:00 | NUR ---
DR ALTMAN INFORMED OF LOW BP AND LOW URINE OUTPUT. NEW ORDERS RECEIVED TO GIVE 500ML NS BOLUS.
--- NOTE | 2018-10-22 10:00 | Physical Therapy Daily Note ---
PT Daily Note-Current Subjective Patient agrees to up in recliner only. Mental Status Patient Orientation: Confused Attachments: Collazo Catheter, IV Transfers Therapy Code Descriptions/Definitions Functional [place] Measure: 0=Not Assessed/NA 4=Minimal Assistance 1=Total Assistance 5=Supervision or Setup 2=Maximal Assistance 6=Modified [place] 3=Moderate Assistance 7=Complete [place] Therapy Quality Codes: 6 Independent with activity with or without an assistive device 5 Patient requires set up or clean up by helper. Patient completes activity by themselves 4 Supervision or touching assist (CGA). [place] provide cues , steadying assist 3 The helper provides less than half the effort to complete the activity 2 The helper provides more than half the effort to complete the activity 1 Dependent. The helper does all the effort to complete an activity 7 Patient refused to complete or attempt activity 9 The patient did not perform the activity before the current illness or injury 88 Not attempted due to Medical conditions or safety concerns Transfers (B, C, W/C) (FIM): 3 Scootin Rollin Supine to/from Sit: 3 Sit to/from Stand: 3 Bed to/from Chair: 3 Weight Bearing Right Lower Extremity: Right Full Weight Bearing Left Lower Extremity: Left Full Weight Bearing Assessment Patient requires time to complete all functional tasks. Patient BP is 70/30 when up in recliner. RN is notified. PT Short Term Goals Short Term Goals Transfers (B,C,W/C) (FIM): 4 PT Mcc Goals Shelving Supervisor Goals PT Mcc Goals Time Frame: Oct 30, 2018 Transfers (B,C,W/C) (FIM): 5 Gait (FIM): 1 Gait distance (FIM): 1=up to 49 ft Distance: 10' Gait Level of Assist: 4 Gait Assistive Device: FWW PT Plan Treatment/Plan Treatment Plan: Continue Plan of Care Treatment Plan: Bed Mobility, Education, Functional Activity [place], Functional Strength, Gait, Safety, Therapeutic Exercise, Transfers Treatment Duration: Oct 30, 2018 Frequency: 6 times per week Estimated Hrs Per Day: .5 hour per day Patient and/or Family Agrees t: Yes Time/GCodes Time In: 930 Time Out: 942 Total Billed Treatment Time: 12 Total Billed Treatment 1 visit FA 12 min PT/OT Therapy GCodes Therapy Functional Limitation: Physical Therapy Test(s)/Tool used to determine: Level of Assistance Scale Functional Limitation-Current Charge Code: MOBCUR Modifier: CK Functional Limitation-Goal Charge Code: MOBSERAFIN Modifier: BRENDEN STEVENSON PT Oct 22, 2018 10:00
--- NOTE | 2018-10-22 14:15 | Occupational Ther Daily Note ---
OT Current Status-Daily Note Subjective RN states pt is getting blood, but is okay for therapy. Pt sitting in chair when therapist arrives. Mental Status/Objective Therapy Code Descriptions/Definitions Functional [place] Measure: 0=Not Assessed/NA 4=Minimal Assistance 1=Total Assistance 5=Supervision or Setup 2=Maximal Assistance 6=Modified [place] 3=Moderate Assistance 7=Complete [place] Attachments: Collazo Catheter, IV ADL-Treatment Pt sitting in chair, states he is tired and wants to get back in bed. Declined other activity at this time. Pt sit to stand with moderate assistance x2. Transfer to EOB with FWW. Pt requires cues for sequencing and safety during transfer. Pt states he is fearful of falling. Increased time for mobility. Sit to supine with assist for LE. Pt requires assist to scoot to HOB. Pt resting in bed with needs met and RN present after session. Continue per plan of care. OT Short Term Goals Short Term Goals Time Frame: Oct 28, 2018 Eating(FIM): 5 Grooming(FIM): 5 Bathing(FIM): 4 Upper Body Dressing(FIM): 4 Lower Body Dressing(FIM): 3 Toileting(FIM): 3 Transfers (B,C,W/C) (FIM): 4 Toilet/Commode Transfer(FIM): 4 Shower Transfer(FIM): 3 Additional Short Term Goals: 1-Demonstrate ADL Tasks, 2-Verbalize Understanding , 3-ImproveStrength/[place] 1=Demonstrate adherence to instructed precautions during ADL tasks. 2=Patient will verbalize/demonstrate understanding of assistive devices/ modifications for ADL. 3=Patient will improve strength/tolerance for activity to enable patient to perform ADL's. OT Senior Care Goals Outside Sales Goals Time Frame: Nov 04, 2018 Eating (FIM): 6 Grooming(FIM): 6 Bathing(FIM): 5 Upper Body Dressing(FIM): 5 Lower Body Dressing(FIM): 5 Toileting(FIM): 6 Transfers (B,C,W/C) (FIM): 6 Toilet/Commode Transfer(FIM): 6 Shower Transfer(FIM): 5 Additional Goals: 1-Demonstrate ADL Tasks, 2-Verbalize Understanding, 3- ImproveStrength/[place] 1=Demonstrate adherence to instructed precautions during ADL tasks. 2=Patient will verbalize/demonstrate understanding of assistive devices/ modifications for ADL. 3=Patient will improve strength/tolerance for activity to enable patient to perform ADL's. OT Education/Plan Discharge Recommendations Plan/Recommendations: Continue POC Treatment Plan/Plan of Care Patient would benefit from OT for education, treatment and training to promote independence in ADL's, mobility, safety and/or upper extremity function for ADL' s. Plan of Care: ADL Retraining, Functional Mobility, UE Funct Exercise/Act Treatment Duration: Nov 04, 2018 Frequency: 5 times per week Estimated Hrs Per Day: .25 hour per day Agreement: Yes Rehab Potential: Fair Time/GCodes Start Time: 13:50 Stop Time: 14:03 Total Time Billed (hr/min): 13 Billed Treatment Time 1 visit, FA(13minutes) PT/OT Therapy GCodes Therapy Functional Limitation: Physical Therapy Test(s)/Tool used to determine: Level of Assistance Scale Functional Limitation-Current Charge Code: MOBCUR Modifier: CK Functional Limitation-Goal Charge Code: MOBGOAL Modifier: REMIGIO BARBOSA OT Oct 22, 2018 14:15
--- NOTE | 2018-10-22 17:11 | Oncology Progress Note ---
Subjective Date Seen by a Provider: Oct 22, 2018 Time Seen by a Provider: 17:03 Subjective/Events-last exam Patient reports no new symptoms overnight or over the course of the day except for several different episodes of bleeding when his skin is scraped or torn. He was noted to be significantly hypotensive this morning and received 2 units of PRBCs. This evening he is receiving platelets for the bleeding and thrombocytopenia. Data Review Labs Laboratory Tests 10/22/18 03:10 Laboratory Tests 10/20/18 18:00: White Blood Count 2.2L, Red Blood Count 2.11L, Hemoglobin 7.5L, Hematocrit 21L, Mean Corpuscular Hemoglobin 36H, Platelet Count 27*L, Lymphocytes (%) (Auto) 48H , Neutrophils # (Auto) 1.0L, Prothrombin Time 15.7H, Sodium Level 130L, Potassium Level 3.3L, Chloride Level 88L, Anion Gap 17H, Glucose Level 116H, Calcium Level 7.6L, Corrected Calcium 7.9L, Total Bilirubin 1.9H, Aspartate Amino Transf (AST/SGOT) 49H, Total Protein 5.3L 10/20/18 18:56: Lactic Acid Level 2.47*H 10/20/18 20:07: Urine Color AMBERH, Urine Specific [place] 1.010L, Urine Protein 1+H, Urine Ketones 2+H, Urine Nitrite POSITIVEH, Urine Bilirubin 2+H, Urine Urobilinogen 8H , Urine Leukocyte Esterase 1+H, Urine Bacteria MODERATEH 10/20/18 21:05: 10/20/18 23:35: White Blood Count 2.3L, Red Blood Count 2.27L, Hemoglobin 8.0L, Hematocrit 23L, Mean Corpuscular Hemoglobin 35H, Platelet Count 27*L, Neutrophils # (Auto) 1.4L , Lymphocytes # (Auto) 0.8L, Absolute Reticulocyte Count 2L, Percent Reticulocyte Count 0.07L, Prothrombin Time 15.4H 10/21/18 03:10: White Blood Count 2.1L, Red Blood Count 2.18L, Hemoglobin 7.6L, Hematocrit 22L, Mean Corpuscular Hemoglobin 35H, Platelet Count 25*L, Neutrophils # (Auto) 1.2L , Lymphocytes # (Auto) 0.8L, Mean Platelet Volume 10.5H, Sodium Level 130L, Chloride Level 93L, Anion Gap 16H, Calcium Level 7.6L, Corrected Calcium 7.9L, Phosphorus Level 2.0L, Magnesium Level 1.4L, Total Bilirubin 1.7H, Aspartate Amino Transf (AST/SGOT) 43H, Total Protein 5.6L 10/21/18 05:30: 10/21/18 06:36: Thyroid Stimulating Hormone (TSH) 65.16H, Free Thyroxine < 0.40L, Free Triiodothyronine <1.00L 10/21/18 07:29: 10/22/18 03:10: White Blood Count 3.1L, Red Blood Count 2.07L, Hemoglobin 7.0L, Hematocrit 20*L , Platelet Count 24*L, Mean Platelet Volume 10.9H, Lymphocytes # (Auto) 0.7L, Sodium Level 126L, Chloride Level 94L, Carbon Dioxide Level 20L, Glucose Level 141H, Calcium Level 7.1L, Corrected Calcium 7.7L, Magnesium Level 1.4L, Total Bilirubin 1.1H, Aspartate Amino Transf (AST/SGOT) 35H, Total Protein 5.0L Physical Exam Vital Signs Vital Signs - First Documented 10/20/18 10/20/18 17:37 21:35 Temp 92.0 Pulse 69 Resp 8 B/P (MAP) 106/68 (81) Pulse Ox 97 O2 Delivery Room Air O2 Flow Rate 2.00 Capillary Refill : Less Than 3 Seconds Height, Weight, BMI Height: 6'0.00" Weight: 219lbs. 1.0oz. 99.933866cf; 27.1 BMI Method:Stated General Appearance: No Apparent Distress, WD/WN Eyes: Bilateral Eye Normal Inspection, Bilateral Eye EOMI HEENT: Normal ENT Inspection; No Moist Mucous Membranes Neck: Normal Inspection Respiratory: Lungs Clear Cardiovascular: Regular Rate, Rhythm; No No Edema Gastrointestinal: Non Tender, Soft Extremity: Pedal Edema Neurologic/Psychiatric: Alert, Oriented x3 Skin: Ecchymosis Focused Exam Lactate Level 10/20/18 18:56: Lactic Acid Level 2.47*H 10/20/18 21:05: Lactic Acid Level 1.73 10/21/18 05:30: Lactic Acid Level 1.22 Impression & Plan Impression & Plan 63 yo male with h/o alcohol abuse and chronic liver disease was admitted for sepsis. He was found to have severe pancytopenia. - Pancytopenia secondary to chronic liver disease, malnutrition, alcohol toxicity, hypothyroidism, and acute illness. Myelodysplasia cannot be completely ruled out. - Nutritional workup currently pending. - Myeloma workup pending. - Review of peripheral smear does not show blasts, immature forms, or schistocytes; this rules out many of the emergent etiologies for his pancytopenia. - Agree with transfusion of PRBCs to keep hgb >7.0. - Platelet transfusion indicated for uncontrolled bleeding or platelets <11,000. - Bone marrow biopsy to be done as outpatient. Clinical Quality Measures DVT/VTE Risk/Contraindication: Risk Factor Score Per Nursin RFS Level Per Nursing on Admit: 4+=Very High Contraindications-Pharm: Other *list below* CHEN BANKS MD Oct 22, 2018 17:11
[2018-10-22] MEDS: ACETAMINOPHEN 500 MG TAB (TYLENOL) PO PRN (21:52)
[2018-10-22] MEDS: VANCOMYCIN 1500 MG/NS 500 ML IVPB IV SCH ×2 (21:53)
[2018-10-22] MEDS: cefTRIAXone 1 GM/NS 50 ML IVPB IV SCH ×2 (21:53)
[2018-10-23] VITALS (13 sets, daily range): BP systolic 93–122; BP diastolic 68–93
[2018-10-23] MEDS: NOREPINEPHRINE 4 MG in NS (IVPB) 250 ML IV SCH (02:43)
[2018-10-23] MEDS: POTASSIUM CL 10MEQ/50ML IVPB 50 ML IV SCH (02:44)
[2018-10-23] MEDS: MAGNESIUM 1 GM/100 ML IVPB 100 ML IV SCH ×3 (02:44→08:10)
[2018-10-23] MEDS: KCL 20 MEQ TAB (K-DUR) PO SCH (02:44)
[2018-10-23 04:20] LABS: BASOPHILS % (AUTO) 0 % (0-10); EOSINOPHILS % (AUTO) 0 % (0-10); HEMATOCRIT 30 % (40-54); HEMOGLOBIN 10.8 G/DL (13.3-17.7); LYMPHOCYTES # (AUTO) 0.9 X 10^3 (1.0-4.0); LYMPHOCYTES % (AUTO) 19 % (12-44); MEAN CORPUSCULAR HEMOGLOBIN 33 PG (25-34); MEAN CORPUSCULAR HGB CONC 37 G/DL (32-36); MEAN CORPUSCULAR VOLUME 89 FL (80-99); MEAN PLATELET VOLUME 11.4 FL (7.4-10.4); MONOCYTES # (AUTO) 0.2 X 10^3 (0.0-1.0); MONOCYTES % (AUTO) 4 % (0-12); NEUTROPHILS # (AUTO) 3.8 X 10^3 (1.8-7.8); NEUTROPHILS % (AUTO) 77 % (42-75); PLATELET COUNT 50 10^3/uL (130-400); RED BLOOD COUNT 3.31 10^6/uL (4.35-5.85); RED CELL DISTRIBUTION WIDTH 17.3 % (10.0-14.5); WHITE BLOOD COUNT 4.9 10^3/uL (4.3-11.0)
[2018-10-23 04:44] LABS: ALANINE AMINOTRANSFERASE 24 U/L (0-55); ALBUMIN 3.5 GM/DL (3.2-4.5); ALKALINE PHOSPHATASE 101 U/L (40-136); BILIRUBIN,TOTAL 1.8 MG/DL (0.1-1.0); BUN/CREATININE RATIO 11; CALCIUM 7.4 MG/DL (8.5-10.1); CARBON DIOXIDE 17 MMOL/L (21-32); CHLORIDE 95 MMOL/L (98-107); CREATININE SERUM 0.73 MG/DL (0.60-1.30); GFR ESTIMATED > 60; GLUCOSE 164 MG/DL (70-105); MAGNESIUM 1.6 MG/DL (1.8-2.4); PHOSPHORUS 2.1 MG/DL (2.3-4.7); POTASSIUM 3.4 MMOL/L (3.6-5.0); SODIUM 126 MMOL/L (135-145); TOTAL PROTEIN 5.6 GM/DL (6.4-8.2)
--- NOTE | 2018-10-23 05:29 | Pulmonary Progress Note ---
Subjective Time Seen by a Provider: 05:27 Subjective/Events-last exam Pt is doing better. He is currently on RA. Sepsis Event Evaluation Height, Weight, BMI Height: 6'0.00" Weight: 219lbs. 1.0oz. 99.789942pr; 27.1 BMI Method:Stated Focused Exam Lactate Level 10/20/18 18:56: Lactic Acid Level 2.47*H 10/20/18 21:05: Lactic Acid Level 1.73 10/21/18 05:30: Lactic Acid Level 1.22 Exam Exam Vital Signs Date Time Temp Pulse Resp B/P (MAP) Pulse Ox O2 Delivery O2 Flow Rate FiO2 10/23/18 04:00 66 15 107/77 (87) 95 Room Air 10/23/18 04:00 Room Air 10/23/18 03:00 65 11 100/68 (79) 95 Room Air 10/23/18 02:00 68 12 107/69 (82) 93 Room Air 10/23/18 01:00 70 10/23/18 01:00 68 18 103/80 (88) 92 Room Air 10/23/18 00:00 Room Air 10/23/18 00:00 54 7 93/71 (78) 93 Room Air 10/22/18 23:00 64 7 97/71 (80) 92 Room Air 10/22/18 22:00 58 8 95/70 (78) 94 Room Air 10/22/18 21:00 66 13 109/78 (88) 95 Room Air 10/22/18 20:22 98.0 10/22/18 20:00 68 12 107/79 (88) 96 Room Air 10/22/18 20:00 Room Air 10/22/18 19:00 60 14 114/86 (95) 95 Room Air 10/22/18 19:00 60 10/22/18 18:00 65 14 120/71 (87) 95 Room Air 10/22/18 17:00 73 24 117/82 (94) 97 Room Air 10/22/18 16:52 97.1 68 12 122/86 96 Room Air 10/22/18 16:00 63 10 123/82 (96) 96 Room Air 10/22/18 15:58 Room Air 10/22/18 15:46 97.1 10/22/18 15:45 96.3 61 14 117/84 96 Room Air 10/22/18 15:25 97.4 63 17 119/80 96 Room Air 10/22/18 15:00 60 13 119/80 (93) 95 Room Air 10/22/18 14:22 97.2 59 10 122/80 95 Room Air 10/22/18 14:00 70 12 121/85 (97) 100 Room Air 10/22/18 13:00 64 14 91/61 (71) 100 Room Air 10/22/18 12:27 61 10/22/18 12:15 97.4 65 14 112/74 97 Room Air 10/22/18 12:05 Room Air 10/22/18 12:00 97.2 61 14 98/73 96 Room Air 10/22/18 12:00 66 11 103/73 (83) 96 Room Air 10/22/18 11:41 97.2 63 12 104/88 97 Room Air 10/22/18 11:39 97.2 10/22/18 11:00 61 14 102/70 (81) 96 Room Air 10/22/18 10:00 67 13 78/50 (59) 96 Room Air 10/22/18 09:58 81 70/37 (48) 10/22/18 09:30 97.3 64 10 93/65 94 Room Air 10/22/18 09:10 97.2 79 16 99/88 93 Room Air 10/22/18 09:00 67 15 99/88 (92) 94 Room Air 10/22/18 08:23 Room Air 10/22/18 08:23 97.2 10/22/18 08:00 40 9 97/69 (78) 96 Room Air 10/22/18 07:00 60 10 97/70 (79) 94 Room Air 10/22/18 07:00 60 10/22/18 06:00 62 9 102/71 (81) 94 Room Air I & O 10/23/18 07:00 Intake Total 3330 ml Output Total 695 ml Balance 2635 ml Height & Weight Height: 6'0.00" Weight: 219lbs. 1.0oz. 99.752770kr; 27.1 BMI Method:Stated General Appearance: No Apparent Distress, WD/WN HEENT: Normal ENT Inspection; No Moist Mucous Membranes Neck: Normal Inspection Respiratory: Lungs Clear Cardiovascular: Regular Rate, Rhythm; No No Edema Capillary Refill: Less Than 3 Seconds Gastrointestinal: non tender, soft Extremity: Pedal Edema Neurologic/Psychiatric: Alert, Oriented x3 Skin: Ecchymosis Results Lab Laboratory Tests 10/22/18 03:10 10/23/18 03:12 Assessment/Plan Assessment/Plan UTI with severe sepsis -Sepsis protocol Severe dehydration -IVF Worsening anemia with Hypotension and thrombocytopenia -S/P Transfuse 2 units PRBC -S/P 1 6pk platelets x 1 -Solucortef Severe hypothyroid -Synthroid restarted -Increase to 100mcg daily PO Hypophos, mg, ca, and K -Replace Hyponatremia -Monitor Weakness/debility -CT of head- is negative Pancytopenia -oncology is following SOM ALTMAN DO Oct 23, 2018 05:29
[2018-10-23] MEDS ORDERED: KCL 20 MEQ TAB (K-DUR) PO ONE (05:30)
[2018-10-23] MEDS ORDERED: POTASSIUM PHOSPHATE INJ 30 MM in NS (IVPB) 250 ML IV ONE (05:30)
[2018-10-23] MEDS ORDERED: CALCIUM GLUCONATE 10% INJ 4.65 MEQ in NS (IVPB) 50 ML IV ONE (05:30)
[2018-10-23] MEDS: NS IV 1000 ML 1,000 ML IV SCH (06:45)
[2018-10-23] MEDS: HYDROCORTISONE 100 MG/2 ML (Solu-CORTEF) VIAL IV SCH ×3 (06:45→21:31)
[2018-10-23] MEDS: THIAMINE 100 MG (VITAMIN B-1) TAB PO SCH (06:46)
[2018-10-23] MEDS: FOLIC ACID 1 MG TAB PO SCH (06:46)
[2018-10-23] MEDS: MULTIVIT W/MINERALS TAB (THERAGRAN M) PO SCH (06:46)
[2018-10-23] MEDS: LEVOTHYROXINE 50 MCG (LEVOTHROID) TAB PO SCH (06:46)
[2018-10-23] MEDS: VANCOMYCIN 1500 MG/NS 500 ML IVPB IV SCH ×4 (08:19→20:54)
[2018-10-23] MEDS: PANTOPRAZOLE 40 MG (PROTONIX) VIAL IV SCH (08:19)
--- NOTE | 2018-10-23 09:04 | Diagnostic Imaging Report ---
INDICATION: Sepsis. Anemia Upright chest shows normal heart size and vascularity. There is bibasilar discoid atelectasis. There is no effusion or pneumothorax. There is no acute bony abnormality. IMPRESSION: There has developed bibasilar discoid atelectasis since the 10/22/2018 study. Dictated by: Dictated on workstation # [id number]
--- NOTE | 2018-10-23 12:20 | Progress Note-Hospitalist ---
Subjective HPI/CC On Admission Date Seen by Provider: Oct 23, 2018 Time Seen by Provider: 11:00 Subjective/Events-last exam Patient is not motivated to get out of bed and is actually almost forced to by physical therapy I don't see any recovery potential that could be initiated in inpatient rehabilitation and likely [facility] will be the best choice for this patient Reviewed labs and meds Transferring to fourth floor Very difficult to have any conversation with the patient Makes rude remarks about me as a female physician Review of Systems General: Fatigue Focused Exam Lactate Level 10/20/18 18:56: Lactic Acid Level 2.47*H 10/20/18 21:05: Lactic Acid Level 1.73 10/21/18 05:30: Lactic Acid Level 1.22 Objective Exam Vital Signs Vital Signs Date Time Temp Pulse Resp B/P (MAP) Pulse Ox O2 Delivery O2 Flow Rate FiO2 10/23/18 10:00 10 105/78 (87) 96 Room Air 10/23/18 07:58 65 10/22/18 20:22 98.0 10/21/18 03:15 2.00 Capillary Refill : Less Than 3 Seconds General Appearance: No Apparent Distress, WD/WN, Chronically ill, Thin Respiratory: Chest Non Tender, No Accessory Muscle Use, No Respiratory Distress , Decreased Breath Sounds, Wheezing Cardiovascular: Regular Rate, Rhythm, No Edema, No Gallop, No JVD, No Murmur, Normal Peripheral Pulses Neurologic/Psychiatric: Alert, Oriented x3, No Motor/Sensory Deficits, Normal Mood/Affect Results/Procedures Lab Laboratory Tests 10/23/18 03:12 Patient resulted labs reviewed. Assessment/Plan Assessment and Plan Assess & Plan/Chief Complaint Assessment: s/p UTI with severe sepsis s/p Severe dehydration Pancytopenia Anemia s/p transfusion of blood and platelets Plan: Transfer to floor Poor prognosis Poor recovery potential Needs DCP Diagnosis/Problems Diagnosis/Problems (1) Severe sepsis Status: Resolved Resolution Date/Time: 10/23/18 @ 13:15 (2) Transfusion of blood during current hospitalization Status: Acute (3) Thrombocytopenia Status: Acute (4) UTI (urinary tract infection) Status: Acute Qualifiers: Urinary tract infection type: acute cystitis Hematuria presence: without hematuria Qualified Codes: N30.00 - Acute cystitis without hematuria (5) Alcoholism Status: Chronic Clinical Quality Measures DVT/VTE Risk/Contraindication: Risk Factor Score Per Nursin RFS Level Per Nursing on Admit: 4+=Very High Contraindications-Pharm: Other *list below* RAVI JASSO DO Oct 23, 2018 12:20
[2018-10-23] MEDS ORDERED: TROUGH ORDER-PHARMACY XX NR (20:00)
[2018-10-23] MEDS: cefTRIAXone 1 GM/NS 50 ML IVPB IV SCH ×2 (21:30)
[2018-10-24] MEDS: NS IV 1000 ML 1,000 ML IV SCH ×3 (00:52→21:50)
[2018-10-24 00:58] VITALS: BP 118/79
[2018-10-24 04:00] VITALS: BP 109/78
[2018-10-24 04:36] LABS: BASOPHILS % (AUTO) 0 % (0-10); EOSINOPHILS % (AUTO) 0 % (0-10); HEMATOCRIT 26 % (40-54); HEMOGLOBIN 9.5 G/DL (13.3-17.7); LYMPHOCYTES # (AUTO) 1.2 X 10^3 (1.0-4.0); LYMPHOCYTES % (AUTO) 21 % (12-44); MEAN CORPUSCULAR HEMOGLOBIN 33 PG (25-34); MEAN CORPUSCULAR HGB CONC 37 G/DL (32-36); MEAN CORPUSCULAR VOLUME 89 FL (80-99); MEAN PLATELET VOLUME 11.1 FL (7.4-10.4); MONOCYTES # (AUTO) 0.3 X 10^3 (0.0-1.0); MONOCYTES % (AUTO) 6 % (0-12); NEUTROPHILS # (AUTO) 4.2 X 10^3 (1.8-7.8); NEUTROPHILS % (AUTO) 73 % (42-75); PLATELET COUNT 54 10^3/uL (130-400); RED BLOOD COUNT 2.91 10^6/uL (4.35-5.85); RED CELL DISTRIBUTION WIDTH 16.6 % (10.0-14.5); WHITE BLOOD COUNT 5.7 10^3/uL (4.3-11.0)
[2018-10-24 05:29] LABS: ALANINE AMINOTRANSFERASE 40 U/L (0-55); ALKALINE PHOSPHATASE 102 U/L (40-136); BILIRUBIN,TOTAL 0.9 MG/DL (0.1-1.0); BUN/CREATININE RATIO 11; CARBON DIOXIDE 17 MMOL/L (21-32); CHLORIDE 99 MMOL/L (98-107); CREATININE SERUM 0.74 MG/DL (0.60-1.30); GFR ESTIMATED > 60; GLUCOSE 143 MG/DL (70-105); PHOSPHORUS 2.5 MG/DL (2.3-4.7); POTASSIUM 3.8 MMOL/L (3.6-5.0); SODIUM 127 MMOL/L (135-145); TOTAL PROTEIN 4.8 GM/DL (6.4-8.2)
[2018-10-24] MEDS: FOLIC ACID 1 MG TAB PO SCH (06:01)
[2018-10-24] MEDS: MULTIVIT W/MINERALS TAB (THERAGRAN M) PO SCH (06:01)
[2018-10-24] MEDS: LEVOTHYROXINE 50 MCG (LEVOTHROID) TAB PO SCH (06:01)
[2018-10-24] MEDS: THIAMINE 100 MG (VITAMIN B-1) TAB PO SCH (06:01)
[2018-10-24] MEDS: HYDROCORTISONE 100 MG/2 ML (Solu-CORTEF) VIAL IV SCH ×3 (06:01→21:54)
--- NOTE | 2018-10-24 06:26 | Pulmonary Progress Note ---
Subjective Time Seen by a Provider: 06:25 Subjective/Events-last exam Pt appears to be doing better. Sepsis Event Evaluation Height, Weight, BMI Height: 6'0.00" Weight: 224lbs. 1.0oz. 101.727284yy; 27.1 BMI Method:Stated Exam Exam Vital Signs Date Time Temp Pulse Resp B/P (MAP) Pulse Ox O2 Delivery O2 Flow Rate FiO2 10/24/18 04:00 97.1 89 18 109/78 (88) 92 Room Air 10/24/18 01:00 70 10/24/18 00:58 96.9 72 18 118/79 (92) 93 Room Air 10/23/18 21:00 Room Air 10/23/18 20:00 96.4 72 16 107/70 (82) 91 Room Air 10/23/18 19:00 80 10/23/18 16:00 96.8 70 16 107/71 (83) 91 Room Air 10/23/18 12:47 66 10/23/18 12:00 95.5 67 10 122/75 (91) 96 Room Air 10/23/18 10:00 10 105/78 (87) 96 Room Air 10/23/18 08:00 Room Air 10/23/18 08:00 10 117/82 (94) 95 Room Air 10/23/18 07:58 65 10/23/18 07:00 73 14 118/93 (101) 92 Room Air I & O 10/24/18 06:59 Intake Total 1345 ml Output Total 900 ml Balance 445 ml Height & Weight Height: 6'0.00" Weight: 224lbs. 1.0oz. 101.950643ko; 27.1 BMI Method:Stated General Appearance: No Apparent Distress, WD/WN, Chronically ill, Thin HEENT: Normal ENT Inspection; No Moist Mucous Membranes Neck: Normal Inspection Respiratory: Chest Non Tender, No Accessory Muscle Use, No Respiratory Distress , Decreased Breath Sounds, Wheezing Cardiovascular: Regular Rate, Rhythm, No Edema, No Gallop, No JVD, No Murmur, Normal Peripheral Pulses Capillary Refill: Less Than 3 Seconds Gastrointestinal: non tender, soft Extremity: Pedal Edema Neurologic/Psychiatric: Alert, Oriented x3, No Motor/Sensory Deficits, Normal Mood/Affect Skin: Ecchymosis Results Lab Laboratory Tests 10/23/18 03:12 10/24/18 03:55 Assessment/Plan Assessment/Plan UTI with severe sepsis -Sepsis protocol Atelectasis -Increase activity -Monitor -IS Severe dehydration -IVF Worsening anemia with Hypotension and thrombocytopenia -S/P Transfuse 2 units PRBC -S/P 1 6pk platelets x 1 -Solucortef Severe hypothyroid -Synthroid restarted -Increase to 100mcg daily PO Hypophos, mg, ca, and K -Replace Hyponatremia -Monitor Weakness/debility -CT of head- is negative Pancytopenia -oncology is following I am going to sign off please call with any questions or concerns. SOM ALTMAN DO Oct 24, 2018 06:25
[2018-10-24 08:00] VITALS: BP 128/80
[2018-10-24] MEDS ORDERED: TROUGH ORDER-PHARMACY XX NR (08:00)
[2018-10-24] MEDS: PANTOPRAZOLE 40 MG (PROTONIX) VIAL IV SCH (10:17)
[2018-10-24] MEDS: ACETAMINOPHEN 500 MG TAB (TYLENOL) PO PRN (10:22)
[2018-10-24 12:00] VITALS: BP 110/74
--- NOTE | 2018-10-24 12:52 | Progress Note-Hospitalist ---
Subjective HPI/CC On Admission Date Seen by Provider: Oct 24, 2018 Time Seen by Provider: 11:30 Subjective/Events-last exam Patient doing about the same Reports feeling better Reports he is still wheezing Vancomycin tolerated Thrombocytopenia noted from alcoholism bone marrow suppression and platelet dysfunction Needs long term for debility Review of Systems General: Fatigue Pulmonary: Cough Objective Exam Vital Signs Vital Signs Date Time Temp Pulse Resp B/P (MAP) Pulse Ox O2 Delivery O2 Flow Rate FiO2 10/24/18 16:00 97.0 73 20 118/80 (93) 96 Room Air 10/21/18 03:15 2.00 Capillary Refill : Less Than 3 Seconds General Appearance: No Apparent Distress, WD/WN, Chronically ill, Thin Respiratory: Chest Non Tender, No Accessory Muscle Use, No Respiratory Distress , Crackles, Wheezing Cardiovascular: Regular Rate, Rhythm, No Edema, No Gallop, No JVD, No Murmur, Normal Peripheral Pulses Neurologic/Psychiatric: Alert, Oriented x3, No Motor/Sensory Deficits, Normal Mood/Affect Skin: Normal Color, Warm/Dry Results/Procedures Lab Laboratory Tests 10/24/18 03:55 Patient resulted labs reviewed. Assessment/Plan Assessment and Plan Assess & Plan/Chief Complaint Assessment: s/p UTI with severe sepsis s/p Severe dehydration Pancytopenia Anemia s/p transfusion of blood and platelets Long-standing alcoholism Unsure of recovery potential Wheezing Plan: Poor prognosis Poor recovery potential Needs [facility] Diagnosis/Problems Diagnosis/Problems (1) Severe sepsis Status: Resolved Resolution Date/Time: 10/23/18 @ 13:15 (2) Transfusion of blood during current hospitalization Status: Acute (3) Thrombocytopenia Status: Acute (4) UTI (urinary tract infection) Status: Acute Qualifiers: Urinary tract infection type: acute cystitis Hematuria presence: without hematuria Qualified Codes: N30.00 - Acute cystitis without hematuria (5) Alcoholism Status: Chronic Clinical Quality Measures DVT/VTE Risk/Contraindication: Risk Factor Score Per Nursin RFS Level Per Nursing on Admit: 4+=Very High Contraindications-Pharm: Other *list below* RAVI JASSO DO Oct 24, 2018 12:52
[2018-10-24 16:00] VITALS: BP 118/80
[2018-10-24] MEDS ORDERED: VANCOMYCIN 1250 MG/NS 250 ML IVPB IV SCH ×2 (17:00)
[2018-10-24 19:35] VITALS: BP 116/77
[2018-10-24] MEDS: cefTRIAXone 1 GM/NS 50 ML IVPB IV SCH ×2 (21:50)
[2018-10-25] VITALS (7 sets, daily range): BP systolic 101–130; BP diastolic 70–84
[2018-10-25 03:49] LABS: BASOPHILS % (AUTO) 0 % (0-10); EOSINOPHILS % (AUTO) 0 % (0-10); HEMATOCRIT 27 % (40-54); HEMOGLOBIN 9.8 G/DL (13.3-17.7); LYMPHOCYTES # (AUTO) 1.5 X 10^3 (1.0-4.0); LYMPHOCYTES % (AUTO) 19 % (12-44); MEAN CORPUSCULAR HEMOGLOBIN 33 PG (25-34); MEAN CORPUSCULAR HGB CONC 37 G/DL (32-36); MEAN CORPUSCULAR VOLUME 89 FL (80-99); MONOCYTES # (AUTO) 0.7 X 10^3 (0.0-1.0); MONOCYTES % (AUTO) 9 % (0-12); NEUTROPHILS # (AUTO) 5.6 X 10^3 (1.8-7.8); NEUTROPHILS % (AUTO) 72 % (42-75); PLATELET COUNT 59 10^3/uL (130-400); RED BLOOD COUNT 2.99 10^6/uL (4.35-5.85); RED CELL DISTRIBUTION WIDTH 16.6 % (10.0-14.5); WHITE BLOOD COUNT 7.7 10^3/uL (4.3-11.0)
[2018-10-25 04:10] LABS: ALANINE AMINOTRANSFERASE 61 U/L (0-55); ALBUMIN 3.2 GM/DL (3.2-4.5); ALKALINE PHOSPHATASE 115 U/L (40-136); BILIRUBIN,TOTAL 1.2 MG/DL (0.1-1.0); BUN/CREATININE RATIO 12; CALCIUM 7.4 MG/DL (8.5-10.1); CARBON DIOXIDE 16 MMOL/L (21-32); CHLORIDE 98 MMOL/L (98-107); CREATININE SERUM 0.74 MG/DL (0.60-1.30); GFR ESTIMATED > 60; GLUCOSE 144 MG/DL (70-105); MAGNESIUM 1.8 MG/DL (1.8-2.4); PHOSPHORUS 2.3 MG/DL (2.3-4.7); POTASSIUM 3.6 MMOL/L (3.6-5.0); SODIUM 126 MMOL/L (135-145)
[2018-10-25] MEDS ORDERED: RT-ALBUTEROL/IPRATROPIUM 3 ML (DUONEB) VIAL INH PRN (04:15)
[2018-10-25] MEDS ORDERED: RT-ALBUTEROL SULF 2.5 MG/3 ML PRE-MIX VIAL ONE (04:30)
[2018-10-25] MEDS ORDERED: RT-IPRATROPIUM (ATROVENT) 0.5MG/2.5ML AMP IH ONE ×2 (04:30→04:45)
[2018-10-25] MEDS ORDERED: RT-ALBUTEROL SULF 2.5 MG/3 ML PRE-MIX VIAL INH SCH (04:45)
--- NOTE | 2018-10-25 06:38 | Diagnostic Imaging Report ---
INDICATION: Sepsis. COMPARISON: 10/23/2018. FINDINGS: Single frontal radiographic view of the chest was obtained and demonstrates small bibasilar effusions and associated atelectasis. There is no pneumothorax. Cardiac silhouette and pulmonary vasculature within normal limits. IMPRESSION: 1. Small bilateral pleural effusions. Dictated by: Dictated on workstation # [id number]
[2018-10-25] MEDS: HYDROCORTISONE 100 MG/2 ML (Solu-CORTEF) VIAL IV SCH (07:10)
[2018-10-25] MEDS: FOLIC ACID 1 MG TAB PO SCH (07:10)
[2018-10-25] MEDS: LEVOTHYROXINE 50 MCG (LEVOTHROID) TAB PO SCH (07:10)
[2018-10-25] MEDS: THIAMINE 100 MG (VITAMIN B-1) TAB PO SCH (07:10)
[2018-10-25] MEDS: MULTIVIT W/MINERALS TAB (THERAGRAN M) PO SCH (07:10)
--- NOTE | 2018-10-25 07:12 | Pulmonary Progress Note ---
Subjective Time Seen by a Provider: 07:09 Subjective/Events-last exam I was called by RT secondary to pt being more SOB and wheezing. Sepsis Event Evaluation Height, Weight, BMI Height: 6'0.00" Weight: 191lbs. 6.0oz. 86.101752jc; 27.1 BMI Method:Stated Exam Exam Vital Signs Date Time Temp Pulse Resp B/P (MAP) Pulse Ox O2 Delivery O2 Flow Rate FiO2 10/25/18 06:27 93 Nasal Cannula 6.00 10/25/18 04:37 94 Nasal Cannula 2.00 10/25/18 04:20 93 Nasal Cannula 2.00 10/25/18 04:00 97.7 83 20 130/84 (99) 93 Room Air 10/25/18 01:11 82 10/25/18 00:00 97.5 76 18 120/80 (93) 94 Room Air 10/24/18 21:00 Room Air 10/24/18 19:35 97.0 77 24 116/77 (90) 95 Room Air 10/24/18 19:10 72 10/24/18 16:00 97.0 73 20 118/80 (93) 96 Room Air 10/24/18 13:34 75 10/24/18 12:00 96.3 73 16 110/74 (86) 91 Room Air 10/24/18 09:00 Room Air 10/24/18 08:00 96.3 84 16 128/80 (96) 100 Room Air I & O 10/25/18 07:00 Intake Total 2272.5 ml Output Total 750 ml Balance 1522.5 ml Height & Weight Height: 6'0.00" Weight: 191lbs. 6.0oz. 86.061207qv; 27.1 BMI Method:Stated General Appearance: WD/WN, Anxious, Chronically ill, Mild Distress, Thin HEENT: Normal ENT Inspection; No Moist Mucous Membranes Neck: Normal Inspection Respiratory: Chest Non Tender, No Accessory Muscle Use, No Respiratory Distress , Decreased Breath Sounds, Wheezing Cardiovascular: Regular Rate, Rhythm, No Edema, No Gallop, No JVD, No Murmur, Normal Peripheral Pulses Capillary Refill: Less Than 3 Seconds Gastrointestinal: non tender, soft Extremity: Pedal Edema Neurologic/Psychiatric: Alert, Oriented x3, No Motor/Sensory Deficits, Normal Mood/Affect Skin: Normal Color, Warm/Dry, Ecchymosis Results Lab Laboratory Tests 10/24/18 03:55 10/25/18 03:25 Assessment/Plan Assessment/Plan Acute respiratory distress probably secondary to pulmonary edema -cxr reviewed -Solumedrol 125mg IV x 1 -SVNS to Q4 -Lasix 40mg IV x 1 -Hep lock IVF UTI with severe sepsis -Sepsis protocol Atelectasis -Increase activity -Monitor -IS Severe dehydration -IVF anemia with Hypotension and thrombocytopenia -S/P Transfuse 2 units PRBC -S/P 1 6pk platelets x 1 hypothyroid -100mcg daily PO Hypophos, mg, ca, and K -Replace Hyponatremia -Monitor Weakness/debility -CT of head- is negative Pancytopenia -oncology is following SOM ALTMAN DO Oct 25, 2018 07:12
[2018-10-25] MEDS ORDERED: methylPREDNISolone 125 MG (Solu-MEDROL) VIAL IVP NR (07:15)
[2018-10-25] MEDS ORDERED: FUROSEMIDE 40 MG/4 ML INJ (LASIX) IVP NR (07:15)
[2018-10-25] MEDS ORDERED: KCL 10 MEQ TAB (MICRO K) PO NR (07:15)
--- NOTE | 2018-10-25 07:36 | Pulmonary Progress Note ---
Sepsis Event Evaluation Height, Weight, BMI Height: 6'0.00" Weight: 191lbs. 6.0oz. 86.700066lp; 27.1 BMI Method:Stated Exam Exam Vital Signs Date Time Temp Pulse Resp B/P (MAP) Pulse Ox O2 Delivery O2 Flow Rate FiO2 10/25/18 06:27 93 Nasal Cannula 6.00 10/25/18 06:10 81 10/25/18 04:37 94 Nasal Cannula 2.00 10/25/18 04:20 93 Nasal Cannula 2.00 10/25/18 04:00 97.7 83 20 130/84 (99) 93 Room Air 10/25/18 01:11 82 10/25/18 00:00 97.5 76 18 120/80 (93) 94 Room Air 10/24/18 21:00 Room Air 10/24/18 19:35 97.0 77 24 116/77 (90) 95 Room Air 10/24/18 19:10 72 10/24/18 16:00 97.0 73 20 118/80 (93) 96 Room Air 10/24/18 13:34 75 10/24/18 12:00 96.3 73 16 110/74 (86) 91 Room Air 10/24/18 09:00 Room Air 10/24/18 08:00 96.3 84 16 128/80 (96) 100 Room Air I & O 10/25/18 07:00 Intake Total 2272.5 ml Output Total 750 ml Balance 1522.5 ml Height & Weight Height: 6'0.00" Weight: 191lbs. 6.0oz. 86.805297tj; 27.1 BMI Method:Stated General Appearance: WD/WN, Anxious, Chronically ill, Mild Distress, Thin HEENT: Normal ENT Inspection; No Moist Mucous Membranes Neck: Normal Inspection Respiratory: Chest Non Tender, No Accessory Muscle Use, No Respiratory Distress , Decreased Breath Sounds, Wheezing Cardiovascular: Regular Rate, Rhythm, No Edema, No Gallop, No JVD, No Murmur, Normal Peripheral Pulses Capillary Refill: Less Than 3 Seconds Gastrointestinal: non tender, soft Extremity: Pedal Edema Neurologic/Psychiatric: Alert, Oriented x3, No Motor/Sensory Deficits, Normal Mood/Affect Skin: Normal Color, Warm/Dry, Ecchymosis Results Lab Laboratory Tests 10/24/18 03:55 10/25/18 03:25 Assessment/Plan Assessment/Plan Acute respiratory distress probably secondary to pulmonary edema -cxr reviewed -Solumedrol 125mg IV x 1 -SVNS to Q4 -Lasix 40mg IV x 1 -Hep lock IVF UTI with severe sepsis -Sepsis protocol Atelectasis -Increase activity -Monitor -IS Severe dehydration -IVF anemia with Hypotension and thrombocytopenia -S/P Transfuse 2 units PRBC -S/P 1 6pk platelets x 1 hypothyroid -100mcg daily PO Hypophos, mg, ca, and K -Replace Hyponatremia -Monitor Weakness/debility -CT of head- is negative Pancytopenia -oncology is following SOM ALTMAN DO Oct 25, 2018 07:36
--- NOTE | 2018-10-25 07:44 | Progress Note (SOAP) ---
Subjective Time Seen by a Provider: 07:40 Subjective/Events-last exam Patient had shortness of breath this morning. Patient received Lasix and Solu-Medrol. To check patient's B12 folate and A level. Patient has pancytopenia area Patient has hyponatremia sodium 126. Liver tests elevated. Hypotension. Acute respiratory distress. UTI. Sepsis. Hypothyroid. Weakness. Alcoholism history. Malnutrition Objective Exam Vital Signs Date Time Temp Pulse Resp B/P (MAP) Pulse Ox O2 Delivery O2 Flow Rate FiO2 10/25/18 06:27 93 Nasal Cannula 6.00 10/25/18 06:10 81 10/25/18 04:37 94 Nasal Cannula 2.00 10/25/18 04:20 93 Nasal Cannula 2.00 10/25/18 04:00 97.7 83 20 130/84 (99) 93 Room Air 10/25/18 01:11 82 10/25/18 00:00 97.5 76 18 120/80 (93) 94 Room Air 10/24/18 21:00 Room Air 10/24/18 19:35 97.0 77 24 116/77 (90) 95 Room Air 10/24/18 19:10 72 10/24/18 16:00 97.0 73 20 118/80 (93) 96 Room Air 10/24/18 13:34 75 10/24/18 12:00 96.3 73 16 110/74 (86) 91 Room Air 10/24/18 09:00 Room Air 10/24/18 08:00 96.3 84 16 128/80 (96) 100 Room Air I & O 10/25/18 07:00 Intake Total 2272.5 ml Output Total 750 ml Balance 1522.5 ml Capillary Refill : Less Than 3 Seconds General Appearance: No Apparent Distress, Thin HEENT: Normal ENT Inspection Neck: Full Range of Motion, Normal Inspection Respiratory: No Accessory Muscle Use, No Respiratory Distress, Decreased Breath Sounds Cardiovascular: Regular Rate, Rhythm Gastrointestinal: non tender, soft Results Lab Laboratory Tests 10/25/18 03:25 Laboratory Tests 10/24/18 08:17: Vancomycin Level Trough 21.1H 10/25/18 03:25: White Blood Count 7.7, Red Blood Count 2.99L, Hemoglobin 9.8L, Hematocrit 27L, Mean Corpuscular Volume 89, Mean Corpuscular Hemoglobin 33, Mean Corpuscular Hemoglobin Concent 37H, Red Cell Distribution Width 16.6H, Platelet Count 59L, Mean Platelet Volume 10.0, Neutrophils (%) (Auto) 72, Lymphocytes (%) (Auto) 19 , Monocytes (%) (Auto) 9, Eosinophils (%) (Auto) 0, Basophils (%) (Auto) 0, Neutrophils # (Auto) 5.6, Lymphocytes # (Auto) 1.5, Monocytes # (Auto) 0.7, Eosinophils # (Auto) 0.0, Basophils # (Auto) 0.0, Sodium Level 126L, Potassium Level 3.6, Chloride Level 98, Carbon Dioxide Level 16L, Anion Gap 12, Blood Urea Nitrogen 9, Creatinine 0.74, Estimat Glomerular Filtration Rate > 60, BUN/ Creatinine Ratio 12, Glucose Level 144H, Calcium Level 7.4L, Corrected Calcium 8.0L, Phosphorus Level 2.3, Magnesium Level 1.8, Total Bilirubin 1.2H, Aspartate Amino Transf (AST/SGOT) 110H, Alanine Aminotransferase (ALT/SGPT) 61H , Alkaline Phosphatase 115, Total Protein 5.0L, Albumin 3.2 Microbiology 10/20/18 Blood Culture - Preliminary, Resulted No growth 10/20/18 MRSA Screen - Final, Complete MRSA not isolated 10/20/18 Urine Culture - Final, Complete Enterococcus faecalis Assessment/Plan Assessment/Plan Assess & Plan/Chief Complaint Sepsis. UTI. Chronic liver disease. Alcoholism. Hypotension. Pancytopenia. Anemia. Hypothyroid. Weakness.. . 10/25/18. Sepsis. UTI. Hyponatremia. Elevated liver tests. UTI due to enterococcus bacillus. Acute respiratory distress. Hypothyroid. Weakness. Alcoholism. Malnutrition Clinical Quality Measures Admission Status Admission Dx Pancytopenia. Debility. Hypothermia. Hypomagnesemia. Hypophosphatemia. Alcoholism. Tobacco usage. Hypothyroid. DVT/VTE Risk/Contraindication: Risk Factor Score Per Nursin RFS Level Per Nursing on Admit: 4+=Very High Contraindications-Pharm: Other *list below* ADEN HERNANDEZ DO Oct 25, 2018 07:44
[2018-10-25] MEDS ORDERED: CYANOCOBALAMIN INJ 1000 MCG/ML IM NR (08:00)
[2018-10-25] MEDS ORDERED: RT-ALBUTEROL/IPRATROPIUM 3 ML (DUONEB) VIAL INH SCH (08:00)
[2018-10-25] MEDS ORDERED: AMPICILLIN 1 GM/NS 50 ML IVPB IV SCH ×2 (08:46)
[2018-10-25] MEDS: PANTOPRAZOLE 40 MG (PROTONIX) VIAL IV SCH (08:46)
[2018-10-25] MEDS: RT-ALBUTEROL/IPRATROPIUM 3 ML (DUONEB) VIAL INH SCH ×4 (09:37→22:12)
--- NOTE | 2018-10-25 10:44 | Physical Therapy Progress Note ---
Therapy Progress Note Patient is in bed without O2 in place. Patient states, "I don't have to wear it if I don't want to. I have had another near experience last night. Dr. Cortes told me I don't have to do anything I don't want to do, so I'm not going to work with you." PT attempted to educate patient on importance of O2 use and participating with PT, however, patient continued to declined therapy. SW and RN notified. Bed alarm is activated. 1 ref BRENDEN AUGUSTIN PT Oct 25, 2018 10:44
--- NOTE | 2018-10-25 14:16 | Occ Therapy Progress Note ---
Therapy Progress Note Patient is in bed, O2 not applied. Patient states,"I don't want it. I have had 2 close to experiences lately and I don't want to do anything." PERERA educated patient on OT, pt stated "I don't work and don't need an occupation." PERERA attempted to explain about OT and pt stated again I don't want to do anything and that he had it up to here (pointing to the top of his head) with everyone coming in to bug me. RN notified. Bed alarm is activated. 1,REF LORI OVIEDO Oct 25, 2018 14:16
--- NOTE | 2018-10-25 15:28 | Oncology Progress Note ---
Subjective Date Seen by a Provider: Oct 25, 2018 Time Seen by a Provider: 15:24 Subjective/Events-last exam No new issues. Out of ICU to Rm [id number] yesterday Blood counts improved. Data Review Labs Laboratory Tests 10/25/18 03:25 Laboratory Tests 10/23/18 03:12: Red Blood Count 3.31L, Hemoglobin 10.8#L, Hematocrit 30L, Mean Corpuscular Hemoglobin Concent 37H, Red Cell Distribution Width 17.3H, Platelet Count 50L, Mean Platelet Volume 11.4H, Neutrophils (%) (Auto) 77H, Lymphocytes # (Auto) 0.9L, Sodium Level 126L, Potassium Level 3.4L, Chloride Level 95L, Carbon Dioxide Level 17L, Glucose Level 164H, Calcium Level 7.4L, Corrected Calcium 7.8L, Phosphorus Level 2.1L, Magnesium Level 1.6L, Total Bilirubin 1.8H, Aspartate Amino Transf (AST/SGOT) 47H, Total Protein 5.6L 10/23/18 20:18: Vancomycin Level Trough 28.8*H 10/24/18 03:55: Red Blood Count 2.91L, Hemoglobin 9.5L, Hematocrit 26L, Mean Corpuscular Hemoglobin Concent 37H, Red Cell Distribution Width 16.6H, Platelet Count 54L, Mean Platelet Volume 11.1H, Sodium Level 127L, Carbon Dioxide Level 17L, Glucose Level 143H, Calcium Level 7.0L, Corrected Calcium 7.8L, Aspartate Amino Transf (AST/SGOT) 86H, Total Protein 4.8L, Albumin 3.0L 10/24/18 08:17: Vancomycin Level Trough 21.1H 10/25/18 03:25: Red Blood Count 2.99L, Hemoglobin 9.8L, Hematocrit 27L, Mean Corpuscular Hemoglobin Concent 37H, Red Cell Distribution Width 16.6H, Platelet Count 59L, Sodium Level 126L, Carbon Dioxide Level 16L, Glucose Level 144H, Calcium Level 7.4L, Corrected Calcium 8.0L, Total Bilirubin 1.2H, Aspartate Amino Transf (AST/ SGOT) 110H, Alanine Aminotransferase (ALT/SGPT) 61H, Total Protein 5.0L 10/25/18 08:50: B-Type Natriuretic Peptide 417.0H Physical Exam Vital Signs Vital Signs - First Documented 10/20/18 10/20/18 17:37 21:35 Temp 92.0 Pulse 69 Resp 8 B/P (MAP) 106/68 (81) Pulse Ox 97 O2 Delivery Room Air O2 Flow Rate 2.00 Capillary Refill : Less Than 3 Seconds Height, Weight, BMI Height: 6'0.00" Weight: 191lbs. 6.0oz. 86.898589sm; 27.1 BMI Method:Stated General Appearance: No Apparent Distress HEENT: PERRL/EOMI Neck: Non Tender, Supple Respiratory: No Accessory Muscle Use, No Respiratory Distress, Crackles Cardiovascular: Regular Rate, Rhythm Gastrointestinal: Non Tender, Soft Extremity: Other (eccemosis over both arms) Neurologic/Psychiatric: Alert, Oriented x3 Impression & Plan Impression & Plan 63 yo male with h/o alcohol abuse and chronic liver disease was admitted for sepsis. He was found to have severe pancytopenia. - Pancytopenia secondary to chronic liver disease, malnutrition, alcohol toxicity, hypothyroidism, and acute illness. Myelodysplasia cannot be completely ruled out. - Nutritional workup currently pending. - Myeloma workup pending. - Review of peripheral smear does not show blasts, immature forms, or schistocytes; this rules out many of the emergent etiologies for his pancytopenia. - Agree with transfusion of PRBCs to keep hgb >7.0. - Platelet transfusion indicated for uncontrolled bleeding or platelets <11,000. - Bone marrow biopsy to be done as outpatient. - F/u with Dr Ruiz at cancer center on 11/05/18 - From Hem/Onc point of view, patient can be discharged. Clinical Quality Measures DVT/VTE Risk/Contraindication: Risk Factor Score Per Nursin RFS Level Per Nursing on Admit: 4+=Very High Contraindications-Pharm: Other *list below* STEVE PEREZ MD Oct 25, 2018 15:28
[2018-10-25] MEDS: AMPICILLIN 1 GM/NS 50 ML IVPB IV SCH ×4 (16:07→21:18)
[2018-10-25] MEDS: ACETAMINOPHEN 500 MG TAB (TYLENOL) PO PRN (16:12)
[2018-10-25] MEDS: cefTRIAXone 1 GM/NS 50 ML IVPB IV SCH ×2 (21:18)
[2018-10-26] MEDS: RT-ALBUTEROL/IPRATROPIUM 3 ML (DUONEB) VIAL INH SCH ×6 (02:37→21:53)
[2018-10-26 03:57] LABS: BASOPHILS % (AUTO) 0 % (0-10); EOSINOPHILS % (AUTO) 0 % (0-10); HEMATOCRIT 26 % (40-54); HEMOGLOBIN 9.4 G/DL (13.3-17.7); LYMPHOCYTES % (AUTO) 12 % (12-44); MEAN CORPUSCULAR HEMOGLOBIN 33 PG (25-34); MEAN CORPUSCULAR HGB CONC 36 G/DL (32-36); MEAN CORPUSCULAR VOLUME 90 FL (80-99); MEAN PLATELET VOLUME 10.8 FL (7.4-10.4); MONOCYTES # (AUTO) 0.9 X 10^3 (0.0-1.0); MONOCYTES % (AUTO) 11 % (0-12); NEUTROPHILS # (AUTO) 6.5 X 10^3 (1.8-7.8); NEUTROPHILS % (AUTO) 78 % (42-75); PLATELET COUNT 59 10^3/uL (130-400); RED BLOOD COUNT 2.87 10^6/uL (4.35-5.85); RED CELL DISTRIBUTION WIDTH 16.3 % (10.0-14.5); WHITE BLOOD COUNT 8.4 10^3/uL (4.3-11.0)
[2018-10-26 04:28] LABS: ALANINE AMINOTRANSFERASE 73 U/L (0-55); ALBUMIN 3.4 GM/DL (3.2-4.5); ALKALINE PHOSPHATASE 112 U/L (40-136); BILIRUBIN,TOTAL 0.9 MG/DL (0.1-1.0); BUN/CREATININE RATIO 13; CALCIUM 7.7 MG/DL (8.5-10.1); CARBON DIOXIDE 14 MMOL/L (21-32); CHLORIDE 95 MMOL/L (98-107); CREATININE SERUM 0.86 MG/DL (0.60-1.30); GFR ESTIMATED > 60; GLUCOSE 145 MG/DL (70-105); MAGNESIUM 1.5 MG/DL (1.8-2.4); PHOSPHORUS 2.6 MG/DL (2.3-4.7); POTASSIUM 3.7 MMOL/L (3.6-5.0); SODIUM 126 MMOL/L (135-145); TOTAL PROTEIN 5.3 GM/DL (6.4-8.2)
[2018-10-26] MEDS: AMPICILLIN 1 GM/NS 50 ML IVPB IV SCH ×8 (04:45→20:58)
[2018-10-26 06:00] LABS: SMEAR SCAN COMMENT YES
[2018-10-26] MEDS: LEVOTHYROXINE 50 MCG (LEVOTHROID) TAB PO SCH (06:30)
[2018-10-26] MEDS: THIAMINE 100 MG (VITAMIN B-1) TAB PO SCH (06:31)
[2018-10-26] MEDS: FOLIC ACID 1 MG TAB PO SCH (06:31)
[2018-10-26] MEDS: MULTIVIT W/MINERALS TAB (THERAGRAN M) PO SCH (06:31)
[2018-10-26] MEDS ORDERED: SODIUM BICARB 8.4% 50 MEQ/50 ML (ABBOTT) SYR IV NR (08:00)
[2018-10-26] MEDS ORDERED: KCL 10 MEQ TAB (MICRO K) PO NR (08:00)
--- NOTE | 2018-10-26 08:01 | Pulmonary Progress Note ---
Subjective Time Seen by a Provider: 08:01 Subjective/Events-last exam Pt appears to be doing better today. Sepsis Event Evaluation Height, Weight, BMI Height: 6'0.00" Weight: 187lbs. 6.0oz. 84.830506ho; 27.1 BMI Method:Stated Exam Exam Vital Signs Date Time Temp Pulse Resp B/P (MAP) Pulse Ox O2 Delivery O2 Flow Rate FiO2 10/26/18 07:50 92 Nasal Cannula 2.00 10/26/18 02:37 88 Room Air 10/25/18 23:59 97.2 70 20 121/72 (88) 93 Nasal Cannula 1.00 10/25/18 22:12 90 Nasal Cannula 0.50 10/25/18 21:00 Nasal Cannula 2.00 10/25/18 20:15 97.2 87 20 115/77 (90) 92 Nasal Cannula 0.50 10/25/18 18:47 88 Room Air 10/25/18 16:15 97.0 79 18 119/71 (87) 92 Room Air 10/25/18 14:10 95 Room Air 10/25/18 13:02 71 10/25/18 12:00 96.2 81 18 118/71 (87) 97 Room Air 10/25/18 09:37 94 Nasal Cannula 6.00 10/25/18 09:00 Nasal Cannula 5.00 I & O 10/26/18 07:00 Intake Total 2810 ml Output Total 1775 ml Balance 1035 ml Height & Weight Height: 6'0.00" Weight: 187lbs. 6.0oz. 84.472617js; 27.1 BMI Method:Stated General Appearance: No Apparent Distress HEENT: PERRL/EOMI Neck: Non Tender, Supple Respiratory: No Accessory Muscle Use, No Respiratory Distress, Crackles Cardiovascular: Regular Rate, Rhythm Capillary Refill: Less Than 3 Seconds Gastrointestinal: non tender, soft Extremity: Other (eccemosis over both arms) Neurologic/Psychiatric: Alert, Oriented x3 Skin: Normal Color, Warm/Dry, Ecchymosis Results Lab Laboratory Tests 10/25/18 03:25 10/26/18 03:50 Assessment/Plan Assessment/Plan Acute respiratory distress probably secondary to pulmonary edema -cxr reviewed -SVNS to Q4 -Hep lock IVF Hypomag -replace UTI with severe sepsis -improving Atelectasis -Increase activity -Monitor -IS anemia with Hypotension and thrombocytopenia -S/P Transfuse 2 units PRBC -S/P 1 6pk platelets x 1 hypothyroid -100mcg daily PO Hypophos, mg, ca, and K -Replace Hyponatremia -Monitor Weakness/debility -CT of head- is negative Pancytopenia -oncology is following SOM ALTMAN DO Oct 26, 2018 08:01
--- NOTE | 2018-10-26 08:55 | Physical Therapy Progress Note ---
Therapy Progress Note Patient adamantly decline PT intervention on this date stating, "I'm not going to do anything today. I don't want to." RN notified. PT attempted to educate patient on importance of participating with therapy to improve current function , however, patient continued to decline PT. 1 ref ( [phone]) BRENDEN AUGUSTIN PT Oct 26, 2018 08:54
[2018-10-26 08:57] VITALS: BP 105/69
[2018-10-26] MEDS: MAGNESIUM 1 GM/100 ML IVPB 100 ML IV SCH ×2 (09:00→10:00)
[2018-10-26] MEDS: PANTOPRAZOLE 40 MG (PROTONIX) TAB PO SCH (09:06)
--- NOTE | 2018-10-26 12:27 | Progress Note-Hospitalist ---
Subjective HPI/CC On Admission Date Seen by Provider: Oct 26, 2018 Time Seen by Provider: 10:30 Subjective/Events-last exam Patient having more edema and upper extremities and weeping Patient appears to be a hospice candidate Very slow to respond to questions but that is baseline Respiratory status is much improved Breathing treatments really help him he reports Overall has no new issues Review of Systems General: Fatigue, Malaise Pulmonary: Dyspnea Objective Exam Vital Signs Vital Signs Date Time Temp Pulse Resp B/P (MAP) Pulse Ox O2 Delivery O2 Flow Rate FiO2 10/26/18 10:38 95 Nasal Cannula 2.00 10/26/18 08:57 97.7 96 18 105/69 (81) Capillary Refill : Less Than 3 Seconds General Appearance: No Apparent Distress, WD/WN, Chronically ill Respiratory: Chest Non Tender, No Accessory Muscle Use, No Respiratory Distress , Decreased Breath Sounds, Wheezing Extremity: Swelling (arms) Neurologic/Psychiatric: Alert, Oriented x3, No Motor/Sensory Deficits, Normal Mood/Affect Results/Procedures Lab Laboratory Tests 10/26/18 03:50 Patient resulted labs reviewed. Assessment/Plan Assessment and Plan Assess & Plan/Chief Complaint Assessment: s/p UTI with severe sepsis s/p Severe dehydration Pancytopenia Anemia s/p transfusion of blood and platelets Long-standing alcoholism Unsure of recovery potential Wheezing Plan: Poor prognosis Poor recovery potential Needs NHP Patient appears to be a hospice candidate Diagnosis/Problems Diagnosis/Problems (1) Severe sepsis Status: Resolved Resolution Date/Time: 10/23/18 @ 13:15 (2) Transfusion of blood during current hospitalization Status: Acute (3) Thrombocytopenia Status: Acute (4) UTI (urinary tract infection) Status: Acute Qualifiers: Urinary tract infection type: acute cystitis Hematuria presence: without hematuria Qualified Codes: N30.00 - Acute cystitis without hematuria (5) Alcoholism Status: Chronic Clinical Quality Measures DVT/VTE Risk/Contraindication: Risk Factor Score Per Nursin RFS Level Per Nursing on Admit: 4+=Very High Contraindications-Pharm: Other *list below* RAVI JASSO DO Oct 26, 2018 12:27
--- NOTE | 2018-10-26 12:32 | Occ Therapy Progress Note ---
Therapy Progress Note Attempted OT treatment at 1020. Pt resting in bed, refused to participate in therapy today. Pt states he is going to rest and will not participate in any therapy today. Education provided regarding role and benefits of OT, continues to refuse. Pt resting in bed with needs met. Will attempt tomorrow as pt willing to participate. 1, refused. REMIGIO DANIELS OT Oct 26, 2018 12:32
[2018-10-26 15:20] VITALS: BP 99/74
[2018-10-26] MEDS ORDERED: TROUGH ORDER-PHARMACY XX NR (16:00)
[2018-10-26] MEDS: ACETAMINOPHEN 500 MG TAB (TYLENOL) PO PRN (16:25)
[2018-10-26] MEDS: cefTRIAXone 1 GM/NS 50 ML IVPB IV SCH ×2 (20:21)
[2018-10-27] VITALS: BP 96/56
[2018-10-27] MEDS: RT-ALBUTEROL/IPRATROPIUM 3 ML (DUONEB) VIAL INH SCH ×6 (02:06→21:22)
[2018-10-27] MEDS: AMPICILLIN 1 GM/NS 50 ML IVPB IV SCH ×8 (03:56→21:39)
[2018-10-27] MEDS: FOLIC ACID 1 MG TAB PO SCH (06:04)
[2018-10-27] MEDS: THIAMINE 100 MG (VITAMIN B-1) TAB PO SCH (06:04)
[2018-10-27] MEDS: LEVOTHYROXINE 50 MCG (LEVOTHROID) TAB PO SCH (06:04)
[2018-10-27] MEDS: MULTIVIT W/MINERALS TAB (THERAGRAN M) PO SCH (06:04)
[2018-10-27 06:47] LABS: BASOPHILS % (AUTO) 0 % (0-10); EOSINOPHILS # (AUTO) 0.1 10^3/uL (0.0-0.3); EOSINOPHILS % (AUTO) 2 % (0-10); HEMATOCRIT 27 % (40-54); HEMOGLOBIN 9.6 G/DL (13.3-17.7); LYMPHOCYTES # (AUTO) 1.3 X 10^3 (1.0-4.0); LYMPHOCYTES % (AUTO) 19 % (12-44); MEAN CORPUSCULAR HEMOGLOBIN 32 PG (25-34); MEAN CORPUSCULAR HGB CONC 35 G/DL (32-36); MEAN CORPUSCULAR VOLUME 91 FL (80-99); MEAN PLATELET VOLUME 11.1 FL (7.4-10.4); MONOCYTES # (AUTO) 0.5 X 10^3 (0.0-1.0); MONOCYTES % (AUTO) 7 % (0-12); NEUTROPHILS % (AUTO) 72 % (42-75); PLATELET COUNT 79 10^3/uL (130-400); RED BLOOD COUNT 2.98 10^6/uL (4.35-5.85); WHITE BLOOD COUNT 6.9 10^3/uL (4.3-11.0)
[2018-10-27 07:09] LABS: ALANINE AMINOTRANSFERASE 83 U/L (0-55); ALBUMIN 3.2 GM/DL (3.2-4.5); ALKALINE PHOSPHATASE 119 U/L (40-136); BILIRUBIN,TOTAL 0.8 MG/DL (0.1-1.0); BUN/CREATININE RATIO 14; CALCIUM 7.8 MG/DL (8.5-10.1); CARBON DIOXIDE 22 MMOL/L (21-32); CHLORIDE 95 MMOL/L (98-107); CREATININE SERUM 0.73 MG/DL (0.60-1.30); GFR ESTIMATED > 60; GLUCOSE 70 MG/DL (70-105); MAGNESIUM 1.8 MG/DL (1.8-2.4); PHOSPHORUS 2.6 MG/DL (2.3-4.7); POTASSIUM 3.4 MMOL/L (3.6-5.0); SODIUM 129 MMOL/L (135-145); TOTAL PROTEIN 5.1 GM/DL (6.4-8.2)
--- NOTE | 2018-10-27 07:57 | Progress Note (SOAP) ---
Subjective Time Seen by a Provider: 07:51 Subjective/Events-last exam Patient states he wants to go to [facility]. Patient has swelling of legs and abdomen. Acute respiratory distress. UTI. Sepsis. Atelectasis. Hypothyroid. Hyponatremia. Weakness. Alcoholism. Pancytopenia better Objective Exam Vital Signs Date Time Temp Pulse Resp B/P (MAP) Pulse Ox O2 Delivery O2 Flow Rate FiO2 10/27/18 06:58 92 Nasal Cannula 1.00 10/27/18 02:06 97 Nasal Cannula 2.00 10/27/18 00:00 96.9 89 16 96/56 (69) 90 Nasal Cannula 2.00 10/26/18 21:54 92 Nasal Cannula 2.00 10/26/18 20:00 Nasal Cannula 2.00 10/26/18 15:20 96.9 94 16 99/74 (82) 93 Nasal Cannula 2.00 10/26/18 14:41 94 Nasal Cannula 2.00 10/26/18 10:38 95 Nasal Cannula 2.00 10/26/18 09:00 Nasal Cannula 2.00 10/26/18 08:57 97.7 96 18 105/69 (81) 93 Nasal Cannula 2.00 I & O 10/27/18 07:00 Intake Total 1370 ml Output Total 500 ml Balance 870 ml Capillary Refill : Less Than 3 Seconds General Appearance: No Apparent Distress HEENT: Normal ENT Inspection Neck: Full Range of Motion, Normal Inspection Respiratory: Decreased Breath Sounds, Wheezing Cardiovascular: Irregularly Irregular Extremity: Pedal Edema Results Lab Laboratory Tests 10/27/18 06:22 Laboratory Tests 10/27/18 06:22: White Blood Count 6.9, Red Blood Count 2.98L, Hemoglobin 9.6L, Hematocrit 27L, Mean Corpuscular Volume 91, Mean Corpuscular Hemoglobin 32, Mean Corpuscular Hemoglobin Concent 35, Red Cell Distribution Width 17.0H, Platelet Count 79L, Mean Platelet Volume 11.1H, Neutrophils (%) (Auto) 72, Lymphocytes (%) (Auto) 19 , Monocytes (%) (Auto) 7, Eosinophils (%) (Auto) 2, Basophils (%) (Auto) 0, Neutrophils # (Auto) 5.0, Lymphocytes # (Auto) 1.3, Monocytes # (Auto) 0.5, Eosinophils # (Auto) 0.1, Basophils # (Auto) 0.0, Sodium Level 129L, Potassium Level 3.4L, Chloride Level 95L, Carbon Dioxide Level 22, Anion Gap 12, Blood Urea Nitrogen 10, Creatinine 0.73, Estimat Glomerular Filtration Rate > 60, BUN/ Creatinine Ratio 14, Glucose Level 70, Calcium Level 7.8L, Corrected Calcium 8.4L, Phosphorus Level 2.6, Magnesium Level 1.8, Total Bilirubin 0.8, Aspartate Amino Transf (AST/SGOT) 115H, Alanine Aminotransferase (ALT/SGPT) 83H, Alkaline Phosphatase 119, Total Protein 5.1L, Albumin 3.2 Microbiology 10/20/18 Blood Culture - Final, Complete No growth 10/20/18 MRSA Screen - Final, Complete MRSA not isolated 10/20/18 Urine Culture - Final, Complete Enterococcus faecalis Assessment/Plan Assessment/Plan Assess & Plan/Chief Complaint Sepsis. UTI. Chronic liver disease. Alcoholism. Hypotension. Pancytopenia. Anemia. Hypothyroid. Weakness.. . 10/25/18. Sepsis. UTI. Hyponatremia. Elevated liver tests. UTI due to enterococcus bacillus. Acute respiratory distress. Hypothyroid. Weakness. Alcoholism. Malnutrition. . 10/27/18. Sepsis. UTI. Pancytopenia. Hypothyroid. Hyponatremia. Alcoholism. Patient weak. Patient wanting to go to a care home. nutrition services associate to plan for [facility] Clinical Quality Measures Admission Status Admission Dx Pancytopenia. Debility. Hypothermia. Hypomagnesemia. Hypophosphatemia. Alcoholism. Tobacco usage. Hypothyroid. DVT/VTE Risk/Contraindication: Risk Factor Score Per Nursin RFS Level Per Nursing on Admit: 4+=Very High Contraindications-Pharm: Other *list below* ADEN HERNANDEZ DO Oct 27, 2018 07:57
[2018-10-27 08:00] VITALS: BP 96/72
--- NOTE | 2018-10-27 09:20 | NUR ---
CM/SS sent information packet to [facility] for them to consider acceptance of the patient. Message was left for Zabrina at [facility].
[2018-10-27] MEDS: PANTOPRAZOLE 40 MG (PROTONIX) TAB PO SCH (09:26)
[2018-10-27 09:30] LABS: CLARITY,URINE CLEAR; COLOR,URINE YELLOW; GLUCOSE, URINE (UA) NEGATIVE (NEGATIVE); KETONES,URINE NEGATIVE (NEGATIVE); LEUKOCYTE ESTERASE ,URINE 1+ (NEGATIVE); NITRITE,URINE NEGATIVE (NEGATIVE); PH,URINE 6 (5-9); PROTEIN,URINE 2+ (NEGATIVE); UROBILINOGEN,URINE 4 MG/DL (NORMAL)
[2018-10-27 09:47] LABS: BACTERIA,URINE TRACE /HPF; BILIRUBIN,URINE 1+ (NEGATIVE)
[2018-10-27 09:48] LABS: SQUAMOUS EPITHELIAL CELL,UR RARE /HPF
--- NOTE | 2018-10-27 10:03 | NUR ---
PEG/JENI Gerber from [facility] called back and they will be over to evaluate the patient around 10:30am.
--- NOTE | 2018-10-27 10:49 | Pulmonary Progress Note ---
Subjective Time Seen by a Provider: 10:47 Subjective/Events-last exam SOB is improved. No complications noted. Sepsis Event Evaluation Height, Weight, BMI Height: 6'0.00" Weight: 187lbs. 1.0oz. 84.890884hi; 27.1 BMI Method:Stated Exam Exam Vital Signs Date Time Temp Pulse Resp B/P (MAP) Pulse Ox O2 Delivery O2 Flow Rate FiO2 10/27/18 08:46 Nasal Cannula 2.00 10/27/18 08:00 96.0 81 18 96/72 (80) 93 Nasal Cannula 2.00 10/27/18 06:58 92 Nasal Cannula 1.00 10/27/18 02:06 97 Nasal Cannula 2.00 10/27/18 00:00 96.9 89 16 96/56 (69) 90 Nasal Cannula 2.00 10/26/18 21:54 92 Nasal Cannula 2.00 10/26/18 20:00 Nasal Cannula 2.00 10/26/18 15:20 96.9 94 16 99/74 (82) 93 Nasal Cannula 2.00 10/26/18 14:41 94 Nasal Cannula 2.00 I & O 10/27/18 07:00 Intake Total 1470 ml Output Total 700 ml Balance 770 ml Height & Weight Height: 6'0.00" Weight: 187lbs. 1.0oz. 84.546365me; 27.1 BMI Method:Stated General Appearance: No Apparent Distress HEENT: Normal ENT Inspection Neck: Full Range of Motion, Normal Inspection Respiratory: Decreased Breath Sounds, Wheezing Cardiovascular: Irregularly Irregular Capillary Refill: Less Than 3 Seconds Gastrointestinal: non tender, soft Extremity: Pedal Edema Neurologic/Psychiatric: Alert, Oriented x3, No Motor/Sensory Deficits, Normal Mood/Affect Skin: Normal Color, Warm/Dry, Ecchymosis Results Lab Laboratory Tests 10/26/18 03:50 10/27/18 06:22 Assessment/Plan Assessment/Plan Dyspnea - improving -repeat imaging as out patient. -SVNS to Q4 -Hep lock IVF UTI with severe sepsis -improving Atelectasis -Increase activity -Monitor -IS anemia with Hypotension and thrombocytopenia -S/P Transfuse 2 units PRBC -S/P 1 6pk platelets x 1 hypothyroid -100mcg daily PO Weakness/debility -CT of head- is negative Pancytopenia -oncology is following SOM ALTMAN DO Oct 27, 2018 10:49
--- NOTE | 2018-10-27 13:07 | NUR ---
CM/SS [facility] called back and will have to deny the acceptance of this patient. They stated that he would require more than 20 skilled days before able to return home and the patient is unwilling to complete a medicaid application for a secondary pay source and he is unable to pay out of pocket.
--- NOTE | 2018-10-27 13:15 | Occ Therapy Progress Note ---
Therapy Progress Note Attempted OT treatment at 1305. Pt in bed, refused to participate in therapy today. Pt states he "can't" participate, but will not provide any further information. Will continue to monitor and complete therapy as pt willing to participate. 1, refused REMIGIO DANIELS OT Oct 27, 2018 13:15
[2018-10-27] MEDS ORDERED: LIDOCAINE UROJET 2% GEL 10 ML PKG ONE ×2 (15:25→23:13)
--- NOTE | 2018-10-27 15:43 | Physical Therapy Daily Note ---
PT Daily Note-Current Subjective Pt laying Supine in bed with Nursing inserting Collazo upon arrival. Pt agrees to PT after encouragement from Aide. Appearance Pt continues to demonstrate skin weeping & swelling throughout body. Mental Status Patient Orientation: Person, Place Attachments: Oxygen, Collazo Catheter Transfers Therapy Code Descriptions/Definitions Functional [place] Measure: 0=Not Assessed/NA 4=Minimal Assistance 1=Total Assistance 5=Supervision or Setup 2=Maximal Assistance 6=Modified [place] 3=Moderate Assistance 7=Complete [place] Therapy Quality Codes: 6 Independent with activity with or without an assistive device 5 Patient requires set up or clean up by helper. Patient completes activity by themselves 4 Supervision or touching assist (CGA). [place] provide cues , steadying assist 3 The helper provides less than half the effort to complete the activity 2 The helper provides more than half the effort to complete the activity 1 Dependent. The helper does all the effort to complete an activity 7 Patient refused to complete or attempt activity 9 The patient did not perform the activity before the current illness or injury 88 Not attempted due to Medical conditions or safety concerns Weight Bearing Right Lower Extremity: Right Full Weight Bearing Left Lower Extremity: Left Full Weight Bearing Exercises Supine Ex: Ankle pumps, Quad Set, Glut sets, Straight leg raise, Hip abd/add Supine Reps: 15 Treatments Pt completes Supine Ex in bed after encouragement from Aide. Pt resting in bed at end of tx with all needs met. Nursing notified that pt bleeding on L UE between bracelet & wrist. Assessment Current Status: Fair Progress Pt is reluctant to participate but after encouragement does complete Supine Ex at [facility]. PT Short Term Goals Short Term Goals Transfers (B,C,W/C) (FIM): 4 PT Software Design Engineer Goals Senior Care Goals PT Software Design Engineer Goals Time Frame: Oct 30, 2018 Transfers (B,C,W/C) (FIM): 5 Gait (FIM): 1 Gait distance (FIM): 1=up to 49 ft Distance: 10' Gait Level of Assist: 4 Gait Assistive Device: FWW PT Plan Problem List Problem List: Activity Tolerance, Functional Strength, Safety, Balance, Gait, Transfer, Bed Mobility Treatment/Plan Treatment Plan: Continue Plan of Care Treatment Plan: Bed Mobility, Education, Functional Activity [place], Functional Strength, Gait, Safety, Therapeutic Exercise, Transfers Treatment Duration: Oct 30, 2018 Frequency: 6 times per week Estimated Hrs Per Day: .5 hour per day Patient and/or Family Agrees t: Yes Safety Risks/Education Patient Education: Correct Positioning, Safety Issues Teaching Recipient: Patient Teaching Methods: Discussion Response to Teaching: Reinforcement Needed Time/GCodes Time In: 1505 Time Out: 1520 Total Billed Treatment Time: 15 Total Billed Treatment 1, EX (15m) G Codes Necessary: No PT/OT Therapy GCodes Therapy Functional Limitation: Physical Therapy Test(s)/Tool used to determine: Level of Assistance Scale Functional Limitation-Current Charge Code: MOBCUR Modifier: CK Functional Limitation-Goal Charge Code: MOBGOAL Modifier: UZAIR BEST COAL EQUIPMENT OPERATOR Oct 27, 2018 15:43
[2018-10-27 16:00] VITALS: BP 115/75
--- NOTE | 2018-10-27 16:23 | NUR ---
CALLED DR HERNANDEZ REGARDING PATIENT'S DECREASED URINE OUTPUT. BUN AND CREATININE WITHIN NORMAL RANGE. PATIENT HAS 1+ EDEMA. BLADDER SCAN SHOWED 259 TO 348 MLS. BALLESTEROS REPLACED. NEW ORDER TO GIVE 300 ML FLUID BOLUS
[2018-10-27] MEDS ORDERED: NS IV 500 ML 300 ML IV ONE (16:30)
[2018-10-28] VITALS: BP 99/54
[2018-10-28] MEDS ORDERED: TAMSULOSIN 0.4 MG (FLOMAX) CAP PO ONE
--- NOTE | 2018-10-28 00:45 | NUR ---
0- FROM 1400 TO 2200 PT ONLY HAD 75ML URINE OUTPUT THROUGH HIS BALLESTEROS. 2229- BLADDER SCAN SHOWED 507ML. PTS ABD IS DISTENDED AND PT STATES HE FEELS UNCOMFORTABLE. TRIED TO ADVANCE PTS CATH WITH NO RESULTS. 2234- SPOKE WITH DR. HERNANDEZ AND INFORMED HIM OF PTS CONDITION. TELEPHONE ORDERS RECEIVED TO DC CURRENT BALLESTEROS CATHETER AND REPLACE WITH SMALLER BALLESTEROS. 2339- IRRIGATED PT CURRENT BALLESTEROS WITH 60ML STERILE WATER, NO CLOTS PRESENT, NO RESISTANCE. WHEN WATER WAS IRRIGATED PT COMPLAINED OF PAIN. 50ML OUTPUT IN BALLESTEROS AFTER BALLESTEROS WAS IRRIGATED. REPLACED PREVIOUS BALLESTEROS (14F COUDE) WITH 12F REGULAR BALLESTEROS (NO 12F COUDE FOLEYS WERE FOUND IN HOSPITAL AT THIS TIME). ON REMOVAL OF PREVIOUS BALLESTEROS, PUS WAS PRESENT ON TIP OF CATHETER. WHEN 12F BALLESTEROS WAS PLACED ONLY 20ML URINE OUTPUT. 2344- BLADDER SCAN SHOWED 265ML. 2351- SPOKE WITH DR. HERNANDEZ OF PTS FINDINGS. DISCUSSED THE POSSIBILITY OF BLADDER SCAN SHOWING ASCITES RATHER THAN URINE. TELEPHONE ORDERS RECEIVED FOR FLAT PLATE OF ABD, FLOMAX 0.4MG PO 1X DOSE NOW AND FLOMAX 0.4MG PO DAILY. 0040- FLAT PLATE OF ABD COMPLETED, FLOMAX GIVEN. WAITING ON RESULTS. WILL CONTINUE TO MONITOR PT AT THIS TIME.
[2018-10-28] MEDS: RT-ALBUTEROL/IPRATROPIUM 3 ML (DUONEB) VIAL INH SCH ×6 (01:21→22:20)
[2018-10-28] MEDS: AMPICILLIN 1 GM/NS 50 ML IVPB IV SCH ×2 (04:03)
--- NOTE | 2018-10-28 06:00 | NUR ---
0530- BLADDER SCAN SHOWED 160ML. 75ML URINE OUTPUT AT THIS TIME. SPOKE WITH DR. HERNANDEZ, TELEPHONE ORDERS RECEIVED FOR CT SCAN WITH CONTRAST STAT.
[2018-10-28] MEDS: LEVOTHYROXINE 50 MCG (LEVOTHROID) TAB PO SCH (06:41)
[2018-10-28] MEDS: THIAMINE 100 MG (VITAMIN B-1) TAB PO SCH (06:41)
[2018-10-28] MEDS: MULTIVIT W/MINERALS TAB (THERAGRAN M) PO SCH (06:41)
[2018-10-28] MEDS: FOLIC ACID 1 MG TAB PO SCH (06:41)
[2018-10-28] MEDS ORDERED: NS 100 ML (IVPB) BAG IV ONE (06:45)
[2018-10-28] MEDS ORDERED: IOHEXOL 350 MG/ML 100 ML (OMNIPAQUE 350) VIAL IV ONE (06:45)
[2018-10-28] MEDS ORDERED: RECEIVED CONTRAST (Hold Metformin) IV SCH (06:45)
--- NOTE | 2018-10-28 06:48 | Progress Note (SOAP) ---
Subjective Time Seen by a Provider: 06:46 Subjective/Events-last exam Patient not voiding. Patient have a CAT scan of abdomen to check on urinary bladder. Blood tests not done yet. Patient not having any pain in the abdomen Objective Exam Vital Signs Date Time Temp Pulse Resp B/P (MAP) Pulse Ox O2 Delivery O2 Flow Rate FiO2 10/28/18 06:35 92 Nasal Cannula 2.00 10/28/18 01:21 92 Nasal Cannula 2.00 10/28/18 00:00 96.9 83 20 99/54 (69) 95 Nasal Cannula 2.50 10/27/18 21:22 91 Nasal Cannula 2.00 10/27/18 21:00 Nasal Cannula 2.00 10/27/18 18:59 89 Nasal Cannula 1.00 10/27/18 16:00 96.2 80 18 115/75 (88) 92 Nasal Cannula 2.00 10/27/18 11:05 94 Nasal Cannula 2.00 10/27/18 08:46 Nasal Cannula 2.00 10/27/18 08:00 96.0 81 18 96/72 (80) 93 Nasal Cannula 2.00 10/27/18 06:58 92 Nasal Cannula 1.00 I & O 10/28/18 07:00 Intake Total 1530 ml Output Total 275 ml Balance 1255 ml Capillary Refill : Less Than 3 Seconds General Appearance: No Apparent Distress HEENT: Normal ENT Inspection Neck: Full Range of Motion, Normal Inspection Respiratory: No Accessory Muscle Use, No Respiratory Distress Gastrointestinal: non tender, soft Results Lab Laboratory Tests 10/27/18 09:24: Urine Color YELLOW, Urine Clarity CLEAR, Urine pH 6, Urine Specific [place] 1.015L, Urine Protein 2+H, Urine Glucose (UA) NEGATIVE, Urine Ketones NEGATIVE, Urine Nitrite NEGATIVE, Urine Bilirubin 1+H, Urine Urobilinogen 4H, Urine Leukocyte Esterase 1+H, Urine RBC (Auto) 2+H, Urine RBC 10-25H, Urine WBC 2-5, Urine Squamous Epithelial Cells RARE, Urine Crystals NONE, Urine Bacteria TRACE , Urine Casts NONE, Urine Mucus SMALLH, Urine Culture Indicated YES 10/27/18 12:42: Lab Scanned Report Transfusion Reaction Form Microbiology 10/20/18 Blood Culture - Final, Complete No growth 10/20/18 MRSA Screen - Final, Complete MRSA not isolated 10/20/18 Urine Culture - Final, Complete Enterococcus faecalis Assessment/Plan Assessment/Plan Assess & Plan/Chief Complaint Sepsis. UTI. Chronic liver disease. Alcoholism. Hypotension. Pancytopenia. Anemia. Hypothyroid. Weakness.. . 10/25/18. Sepsis. UTI. Hyponatremia. Elevated liver tests. UTI due to enterococcus bacillus. Acute respiratory distress. Hypothyroid. Weakness. Alcoholism. Malnutrition. . 10/27/18. Sepsis. UTI. Pancytopenia. Hypothyroid. Hyponatremia. Alcoholism. Patient weak. Patient wanting to go to a [facility]. [facility] . 10/28/18. Sepsis. UTI. Pancytopenia. Hypothyroid. Alcoholism. Patient not voiding CAT scan ordered. Bladder scan not showing much urine in bladder Clinical Quality Measures Admission Status Admission Dx Pancytopenia. Debility. Hypothermia. Hypomagnesemia. Hypophosphatemia. Alcoholism. Tobacco usage. Hypothyroid. DVT/VTE Risk/Contraindication: Risk Factor Score Per Nursin RFS Level Per Nursing on Admit: 4+=Very High Contraindications-Pharm: Other *list below* ADEN HERNANDEZ DO Oct 28, 2018 06:48
[2018-10-28 06:49] LABS: BASOPHILS % (AUTO) 0 % (0-10); EOSINOPHILS # (AUTO) 0.1 10^3/uL (0.0-0.3); EOSINOPHILS % (AUTO) 2 % (0-10); HEMATOCRIT 26 % (40-54); LYMPHOCYTES # (AUTO) 0.8 X 10^3 (1.0-4.0); LYMPHOCYTES % (AUTO) 19 % (12-44); MEAN CORPUSCULAR HEMOGLOBIN 33 PG (25-34); MEAN CORPUSCULAR HGB CONC 35 G/DL (32-36); MEAN CORPUSCULAR VOLUME 92 FL (80-99); MONOCYTES # (AUTO) 0.3 X 10^3 (0.0-1.0); MONOCYTES % (AUTO) 7 % (0-12); NEUTROPHILS # (AUTO) 3.2 X 10^3 (1.8-7.8); NEUTROPHILS % (AUTO) 73 % (42-75); PLATELET COUNT 82 10^3/uL (130-400); RED BLOOD COUNT 2.76 10^6/uL (4.35-5.85); RED CELL DISTRIBUTION WIDTH 16.5 % (10.0-14.5); WHITE BLOOD COUNT 4.4 10^3/uL (4.3-11.0)
[2018-10-28 07:16] LABS: ALANINE AMINOTRANSFERASE 74 U/L (0-55); ALBUMIN 2.9 GM/DL (3.2-4.5); ALKALINE PHOSPHATASE 125 U/L (40-136); BILIRUBIN,TOTAL 0.7 MG/DL (0.1-1.0); BUN/CREATININE RATIO 13; CALCIUM 7.4 MG/DL (8.5-10.1); CARBON DIOXIDE 23 MMOL/L (21-32); CHLORIDE 94 MMOL/L (98-107); CREATININE SERUM 0.69 MG/DL (0.60-1.30); GFR ESTIMATED > 60; GLUCOSE 78 MG/DL (70-105); MAGNESIUM 1.7 MG/DL (1.8-2.4); PHOSPHORUS 2.8 MG/DL (2.3-4.7); POTASSIUM 3.3 MMOL/L (3.6-5.0); SODIUM 126 MMOL/L (135-145); TOTAL PROTEIN 4.5 GM/DL (6.4-8.2)
--- NOTE | 2018-10-28 07:28 | Diagnostic Imaging Report ---
INDICATION: Abdominal pain with no urine output. COMPARISON STUDIES: There are no recent studies. FINDINGS: Supine view of the abdomen demonstrates mildly dilated loops of bowel. This is mainly colon. The osseous structures appear normal. IMPRESSION: There are mildly dilated loops of bowel. Recommend CT scanning for further evaluation. Dictated by: Dictated on workstation # [id number]
[2018-10-28] MEDS ORDERED: NS IV 500 ML 500 ML IV ONE (07:30)
--- NOTE | 2018-10-28 07:59 | Diagnostic Imaging Report ---
PROCEDURE: CT abdomen and pelvis with contrast. TECHNIQUE: Multiple contiguous axial images were obtained through the abdomen and pelvis after administration of intravenous contrast. INDICATION: Abdominal distention, urinary retention Comparison: None Findings: There are small bilateral pleural effusions, with associated atelectasis. The heart is normal in size. There is no pericardial effusion. The liver demonstrates no focal masses, although the left lobe is markedly small. There is a small to moderate amount of ascites in the abdomen and pelvis. Multiple gallstones are seen in the gallbladder lying dependently. No free air is seen. The spleen appears normal. The pancreas demonstrates no focal lesions, although peripancreatic edema is difficult to exclude given the ascites and mesenteric edema. The adrenal glands appear normal. There is marked stool at the rectum. Focal areas of narrowing at the sigmoid colon are thought to be due to underdistention and peristalsis. There are areas of mild bowel wall thickening in the small bowel, likely reactive or related to the ascites. There appears to be an appendiceal stump at the cecum which appears normal in size. The kidneys demonstrate no acute abnormality. No acute osseous abnormalities seen. There are degenerative changes in the spine. There is diffuse subcutaneous anasarca. There is mild air in the urinary bladder. A Collazo catheter is present and the bladder is nondistended. Impression: 1. Small to moderate amount of ascites in the abdomen. 2. Anasarca. 3. Areas of bowel wall thickening, may represent enteritis or reactive to ascites. 4. Markedly diminutive left lobe of the liver with no focal masses seen. 5. Cholelithiasis with mildly prominent gallbladder. 6. Marked stool at the rectum, please correlate clinically for findings of impaction. 7. Collazo catheter in the nondistended urinary bladder. Dictated by: Dictated on workstation # [id number]
--- NOTE | 2018-10-28 08:32 | Pulmonary Progress Note ---
Subjective Time Seen by a Provider: 08:32 Subjective/Events-last exam No complications noted. Sepsis Event Evaluation Height, Weight, BMI Height: 6'0.00" Weight: 187lbs. 8.0oz. 85.198891lr; 27.1 BMI Method:Stated Exam Exam Vital Signs Date Time Temp Pulse Resp B/P (MAP) Pulse Ox O2 Delivery O2 Flow Rate FiO2 10/28/18 06:35 92 Nasal Cannula 2.00 10/28/18 01:21 92 Nasal Cannula 2.00 10/28/18 00:00 96.9 83 20 99/54 (69) 95 Nasal Cannula 2.50 10/27/18 21:22 91 Nasal Cannula 2.00 10/27/18 21:00 Nasal Cannula 2.00 10/27/18 18:59 89 Nasal Cannula 1.00 10/27/18 16:00 96.2 80 18 115/75 (88) 92 Nasal Cannula 2.00 10/27/18 11:05 94 Nasal Cannula 2.00 10/27/18 08:46 Nasal Cannula 2.00 I & O 10/28/18 07:00 Intake Total 1630 ml Output Total 350 ml Balance 1280 ml Height & Weight Height: 6'0.00" Weight: 187lbs. 8.0oz. 85.146754tx; 27.1 BMI Method:Stated General Appearance: No Apparent Distress HEENT: Normal ENT Inspection Neck: Full Range of Motion, Normal Inspection Respiratory: No Accessory Muscle Use, No Respiratory Distress Cardiovascular: Irregularly Irregular Capillary Refill: Less Than 3 Seconds Gastrointestinal: non tender, soft Extremity: Pedal Edema Neurologic/Psychiatric: Alert, Oriented x3, No Motor/Sensory Deficits, Normal Mood/Affect Skin: Normal Color, Warm/Dry, Ecchymosis Results Lab Laboratory Tests 10/27/18 06:22 10/28/18 06:45 Assessment/Plan Assessment/Plan Dyspnea - improving -only requiring 2 liter NC -repeat imaging as out patient. -SVNS to Q4 -Hep lock IVF UTI with severe sepsis -improving Atelectasis -Increase activity -Monitor -IS anemia with Hypotension and thrombocytopenia -S/P Transfuse 2 units PRBC -S/P 1 6pk platelets x 1 hypothyroid Weakness/debility -CT of head- is negative Pancytopenia -oncology is following SOM ALTMAN DO Oct 28, 2018 08:32
[2018-10-28 08:45] VITALS: BP 97/56
[2018-10-28] MEDS: PANTOPRAZOLE 40 MG (PROTONIX) TAB PO SCH (09:12)
--- NOTE | 2018-10-28 11:27 | NUR ---
CM/SS spoke with patient and he is still wanting placement at a SNF. He was reluctant with ML-P to fill out Medicaid hammad as he worries about being able to maintain his home for hopeful return to it after a skilled stay. Patient wanted referral packet sent to [facility], information was sent. Spoke with Willie at [facility], they have no male beds available at this time. He does not anticipate them to have any male beds within next week at least.
--- NOTE | 2018-10-28 12:52 | Physical Therapy Progress Note ---
Therapy Progress Note Patient declined exercises and/or OOB activity on this date. PT educated patient on importance of participating with therapy to increase strength and improve mobility, however, patient continued to decline therapy. 1 ref ([id number]) BRENDEN AUGUSTIN PT Oct 28, 2018 12:52
--- NOTE | 2018-10-28 14:03 | Occupational Ther Daily Note ---
OT Current Status-Daily Note Subjective Pt alert, sitting up in bed. Pt agrees to therapy though continued to talk about multiple topics. Mental Status/Objective Therapy Code Descriptions/Definitions Functional [place] Measure: 0=Not Assessed/NA 4=Minimal Assistance 1=Total Assistance 5=Supervision or Setup 2=Maximal Assistance 6=Modified [place] 3=Moderate Assistance 7=Complete [place] Other Treatment Pt asked what PERERA wanted him to do, choices given and pt chose UE exercises. Pt was able to complete 1 set 10 reps of 2 exercises then 1 set 5 reps of 3rd exercise (B shldr flex), against gravity. Pt started on 2nd set of exercises then became SOA and unable to complete full AROM. After therapy, pt lying in bed with call light/phone in reach. Nrsg in room. Education OT Patient Education: Exercise program Teaching Recipient: Patient Teaching Methods: Discussion Response to Teaching: Verbalize Understanding, Return Demonstration, Reinforcement Needed OT Short Term Goals Short Term Goals Time Frame: Oct 28, 2018 Eating(FIM): 5 Grooming(FIM): 5 Bathing(FIM): 4 Upper Body Dressing(FIM): 4 Lower Body Dressing(FIM): 3 Toileting(FIM): 3 Transfers (B,C,W/C) (FIM): 4 Toilet/Commode Transfer(FIM): 4 Shower Transfer(FIM): 3 Additional Short Term Goals: 1-Demonstrate ADL Tasks, 2-Verbalize Understanding , 3-ImproveStrength/[place] 1=Demonstrate adherence to instructed precautions during ADL tasks. 2=Patient will verbalize/demonstrate understanding of assistive devices/ modifications for ADL. 3=Patient will improve strength/tolerance for activity to enable patient to perform ADL's. OT Custodial Goals Rf Engineer Goals Time Frame: Nov 04, 2018 Eating (FIM): 6 Grooming(FIM): 6 Bathing(FIM): 5 Upper Body Dressing(FIM): 5 Lower Body Dressing(FIM): 5 Toileting(FIM): 6 Transfers (B,C,W/C) (FIM): 6 Toilet/Commode Transfer(FIM): 6 Shower Transfer(FIM): 5 Additional Goals: 1-Demonstrate ADL Tasks, 2-Verbalize Understanding, 3- ImproveStrength/[place] 1=Demonstrate adherence to instructed precautions during ADL tasks. 2=Patient will verbalize/demonstrate understanding of assistive devices/ modifications for ADL. 3=Patient will improve strength/tolerance for activity to enable patient to perform ADL's. OT Education/Plan Discharge Recommendations Plan/Recommendations: Continue POC Treatment Plan/Plan of Care Patient would benefit from OT for education, treatment and training to promote independence in ADL's, mobility, safety and/or upper extremity function for ADL' s. Plan of Care: ADL Retraining, Functional Mobility, UE Funct Exercise/Act Treatment Duration: Nov 04, 2018 Frequency: 5 times per week Estimated Hrs Per Day: .25 hour per day Agreement: Yes Rehab Potential: Fair Time/GCodes Start Time: 13:30 Stop Time: 13:45 Total Time Billed (hr/min): 15 Billed Treatment Time 1 visit-EX 1 (15 min) PT/OT Therapy GCodes Therapy Functional Limitation: Physical Therapy Test(s)/Tool used to determine: Level of Assistance Scale Functional Limitation-Current Charge Code: MOBCUR Modifier: CK Functional Limitation-Goal Charge Code: MOBGOAL Modifier: LORI GOMES Oct 28, 2018 14:03
--- NOTE | 2018-10-28 14:33 | NUR ---
CM/SS patient was okay with referral packet being sent to [facility] and [facility]. He is still wanting to keep his home that he rents in [place] and would hope to return there after a skilled stay.
--- NOTE | 2018-10-28 14:48 | NUR ---
0950 APPROXIMATELY 750 ML OF SOAP SUDS ENEMA GIVEN PT TOLERATED WELL AND HAD A VERY LARGE BOWEL MOVEMENT.
--- NOTE | 2018-10-28 15:04 | NUR ---
CM/SS [facility] is full and therefore can not accept the patient.
[2018-10-28 16:30] VITALS: BP 86/62
[2018-10-28] MEDS: TAMSULOSIN 0.4 MG (FLOMAX) CAP PO SCH (17:24)
[2018-10-28 23:40] VITALS: BP 93/53
[2018-10-29] MEDS: RT-ALBUTEROL/IPRATROPIUM 3 ML (DUONEB) VIAL INH SCH ×6 (02:42→22:25)
[2018-10-29] MEDS: LEVOTHYROXINE 50 MCG (LEVOTHROID) TAB PO SCH (06:53)
[2018-10-29] MEDS: MULTIVIT W/MINERALS TAB (THERAGRAN M) PO SCH (06:53)
[2018-10-29] MEDS: THIAMINE 100 MG (VITAMIN B-1) TAB PO SCH (06:53)
[2018-10-29] MEDS: FOLIC ACID 1 MG TAB PO SCH (06:53)
[2018-10-29 07:36] LABS: BASOPHILS % (AUTO) 0 % (0-10); EOSINOPHILS # (AUTO) 0.1 10^3/uL (0.0-0.3); EOSINOPHILS % (AUTO) 1 % (0-10); HEMATOCRIT 25 % (40-54); HEMOGLOBIN 8.5 G/DL (13.3-17.7); LYMPHOCYTES # (AUTO) 0.8 X 10^3 (1.0-4.0); LYMPHOCYTES % (AUTO) 16 % (12-44); MEAN CORPUSCULAR HEMOGLOBIN 32 PG (25-34); MEAN CORPUSCULAR HGB CONC 34 G/DL (32-36); MEAN CORPUSCULAR VOLUME 93 FL (80-99); MEAN PLATELET VOLUME 11.1 FL (7.4-10.4); MONOCYTES # (AUTO) 0.3 X 10^3 (0.0-1.0); MONOCYTES % (AUTO) 6 % (0-12); NEUTROPHILS # (AUTO) 3.9 X 10^3 (1.8-7.8); NEUTROPHILS % (AUTO) 77 % (42-75); PLATELET COUNT 101 10^3/uL (130-400); RED BLOOD COUNT 2.66 10^6/uL (4.35-5.85); RED CELL DISTRIBUTION WIDTH 16.6 % (10.0-14.5); WHITE BLOOD COUNT 5.1 10^3/uL (4.3-11.0)
[2018-10-29 07:51] LABS: ALANINE AMINOTRANSFERASE 58 U/L (0-55); ALBUMIN 2.8 GM/DL (3.2-4.5); ALKALINE PHOSPHATASE 110 U/L (40-136); BILIRUBIN,TOTAL 0.7 MG/DL (0.1-1.0); BUN/CREATININE RATIO 15; CALCIUM 7.7 MG/DL (8.5-10.1); CARBON DIOXIDE 22 MMOL/L (21-32); CHLORIDE 95 MMOL/L (98-107); CREATININE SERUM 0.65 MG/DL (0.60-1.30); GFR ESTIMATED > 60; GLUCOSE 86 MG/DL (70-105); MAGNESIUM 1.6 MG/DL (1.8-2.4); PHOSPHORUS 3.4 MG/DL (2.3-4.7); POTASSIUM 3.7 MMOL/L (3.6-5.0); TOTAL PROTEIN 4.4 GM/DL (6.4-8.2)
--- NOTE | 2018-10-29 07:51 | Pulmonary Progress Note ---
Subjective Time Seen by a Provider: 07:51 Subjective/Events-last exam Pt feels improved. Sepsis Event Evaluation Height, Weight, BMI Height: 6'0.00" Weight: 190lbs. 5.0oz. 86.826975lw; 27.1 BMI Method:Stated Exam Exam Vital Signs Date Time Temp Pulse Resp B/P (MAP) Pulse Ox O2 Delivery O2 Flow Rate FiO2 10/29/18 07:39 93 Nasal Cannula 3.00 10/29/18 02:42 90 Nasal Cannula 2.00 10/28/18 23:40 96.1 76 18 93/53 (66) 94 Nasal Cannula 2.50 10/28/18 22:20 88 Nasal Cannula 0.50 10/28/18 21:00 Nasal Cannula 2.00 10/28/18 19:33 95 Nasal Cannula 1.50 10/28/18 16:30 86/62 (70) 10/28/18 16:27 96.9 77 21 92 Nasal Cannula 2.00 10/28/18 14:58 92 Nasal Cannula 2.00 10/28/18 08:45 Nasal Cannula 2.00 10/28/18 08:45 96.0 76 20 97/56 (70) 93 Nasal Cannula 2.00 I & O 10/29/18 07:00 Intake Total 600 ml Output Total 325 ml Balance 275 ml Height & Weight Height: 6'0.00" Weight: 190lbs. 5.0oz. 86.608645ms; 27.1 BMI Method:Stated General Appearance: No Apparent Distress HEENT: Normal ENT Inspection Neck: Full Range of Motion, Normal Inspection Respiratory: No Accessory Muscle Use, No Respiratory Distress Cardiovascular: Irregularly Irregular Capillary Refill: Less Than 3 Seconds Gastrointestinal: non tender, soft Extremity: Pedal Edema Neurologic/Psychiatric: Alert, Oriented x3, No Motor/Sensory Deficits, Normal Mood/Affect Skin: Normal Color, Warm/Dry, Ecchymosis Results Lab Laboratory Tests 10/28/18 06:45 10/29/18 07:25 Assessment/Plan Assessment/Plan Dyspnea - improving -only requiring 2 liter NC -repeat imaging as out patient. -SVNS to Q4 -Hep lock IVF UTI with severe sepsis -improving Atelectasis -Increase activity -Monitor -IS anemia with Hypotension and thrombocytopenia -S/P Transfuse 2 units PRBC -S/P 1 6pk platelets x 1 hypothyroid Weakness/debility -CT of head- is negative Pancytopenia -oncology is following SOM ALTMAN DO Oct 29, 2018 07:51
[2018-10-29 07:54] VITALS: BP 100/56
[2018-10-29 07:56] LABS: SODIUM 125 MMOL/L (135-145)
[2018-10-29] MEDS ORDERED: NS IV 500 ML 500 ML IV ONE (08:15)
--- NOTE | 2018-10-29 08:24 | Progress Note (SOAP) ---
Subjective Time Seen by a Provider: 08:23 Subjective/Events-last exam Patient doing better today. Patient willing to do that one alf. [facility]. Patient voices no complaints. Patient had been bowel movement yesterday Collazo catheter is working. Hyponatremia Objective Exam Vital Signs Date Time Temp Pulse Resp B/P (MAP) Pulse Ox O2 Delivery O2 Flow Rate FiO2 10/29/18 07:54 96.9 80 8 100/56 (71) 96 Nasal Cannula 2.50 10/29/18 07:39 93 Nasal Cannula 3.00 10/29/18 02:42 90 Nasal Cannula 2.00 10/28/18 23:40 96.1 76 18 93/53 (66) 94 Nasal Cannula 2.50 10/28/18 22:20 88 Nasal Cannula 0.50 10/28/18 21:00 Nasal Cannula 2.00 10/28/18 19:33 95 Nasal Cannula 1.50 10/28/18 16:30 86/62 (70) 10/28/18 16:27 96.9 77 21 92 Nasal Cannula 2.00 10/28/18 14:58 92 Nasal Cannula 2.00 10/28/18 08:45 Nasal Cannula 2.00 10/28/18 08:45 96.0 76 20 97/56 (70) 93 Nasal Cannula 2.00 I & O 10/29/18 07:00 Intake Total 1000 ml Output Total 500 ml Balance 500 ml Capillary Refill : Less Than 3 Seconds General Appearance: No Apparent Distress HEENT: Normal ENT Inspection Neck: Full Range of Motion, Normal Inspection Respiratory: Lungs Clear, No Accessory Muscle Use, No Respiratory Distress Cardiovascular: Regular Rate, Rhythm, No Murmur Gastrointestinal: non tender, soft Results Lab Laboratory Tests 10/29/18 07:25 Laboratory Tests 10/29/18 07:25: White Blood Count 5.1, Red Blood Count 2.66L, Hemoglobin 8.5L, Hematocrit 25L, Mean Corpuscular Volume 93, Mean Corpuscular Hemoglobin 32, Mean Corpuscular Hemoglobin Concent 34, Red Cell Distribution Width 16.6H, Platelet Count 101L, Mean Platelet Volume 11.1H, Neutrophils (%) (Auto) 77H, Lymphocytes (%) (Auto) 16, Monocytes (%) (Auto) 6, Eosinophils (%) (Auto) 1, Basophils (%) (Auto) 0, Neutrophils # (Auto) 3.9, Lymphocytes # (Auto) 0.8L, Monocytes # (Auto) 0.3, Eosinophils # (Auto) 0.1, Basophils # (Auto) 0.0, Sodium Level 125*L, Potassium Level 3.7, Chloride Level 95L, Carbon Dioxide Level 22, Anion Gap 8, Blood Urea Nitrogen 10, Creatinine 0.65, Estimat Glomerular Filtration Rate > 60, BUN/ Creatinine Ratio 15, Glucose Level 86, Calcium Level 7.7L, Corrected Calcium 8.7 , Phosphorus Level 3.4, Magnesium Level 1.6L, Total Bilirubin 0.7, Aspartate Amino Transf (AST/SGOT) 78H, Alanine Aminotransferase (ALT/SGPT) 58H, Alkaline Phosphatase 110, Ammonia 29, Total Protein 4.4L, Albumin 2.8L Microbiology 10/20/18 Blood Culture - Final, Complete No growth 10/20/18 MRSA Screen - Final, Complete MRSA not isolated 10/27/18 Urine Culture - Final, Complete NO GROWTH Assessment/Plan Assessment/Plan Assess & Plan/Chief Complaint Sepsis. UTI. Chronic liver disease. Alcoholism. Hypotension. Pancytopenia. Anemia. Hypothyroid. Weakness.. . 10/25/18. Sepsis. UTI. Hyponatremia. Elevated liver tests. UTI due to enterococcus bacillus. Acute respiratory distress. Hypothyroid. Weakness. Alcoholism. Malnutrition.. . . 10/27/18. Sepsis. UTI. Pancytopenia. Hypothyroid. Hyponatremia. Alcoholism. Patient weak. Patient wanting to go to a alf. 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 . 10/28/18. Sepsis. UTI. Pancytopenia. Hypothyroid. Alcoholism. Patient not voiding CAT scan ordered. Bladder scan not showing much urine in bladder. . 10/29/18. Sepsis better. UTI resolved. Pancytopenia improving. Alcoholism. Collazo catheter working. Hyponatremia. Patient willing to go to a alf Clinical Quality Measures Admission Status Admission Dx Pancytopenia. Debility. Hypothermia. Hypomagnesemia. Hypophosphatemia. Alcoholism. Tobacco usage. Hypothyroid. DVT/VTE Risk/Contraindication: Risk Factor Score Per Nursin RFS Level Per Nursing on Admit: 4+=Very High Contraindications-Pharm: Other *list below* ADEN HERNANDEZ DO Oct 29, 2018 08:24
[2018-10-29] MEDS: PANTOPRAZOLE 40 MG (PROTONIX) TAB PO SCH (08:25)
--- NOTE | 2018-10-29 08:25 | NUR ---
DR HERNANDEZ HERE, INSTRUCTED NURSE TO GIVE 500ML NORMAL SALINE BOLUS, BALLESTEROS PATENT, DECREASED URINE OUTPUT, WILL CONTINUE TO MONITOR, IV SITE WITHOUT REDNESS OR SWELLING, GENERALIZED EDEMA, ARMS WHEEPING, REFUSED TO HAVE HIS ARMS WRAPPED, HEELS ELEVATED OFF BED, DENIES PAIN, O2 ON PER NC AT 2 LITERS, ENCOURAGED TO TURN EVERY 2 HOURS.
--- NOTE | 2018-10-29 08:56 | Physical Therapy Daily Note ---
PT Daily Note-Current Subjective Patient in bed pre tx, he refuses to get out of bed or sit at the edge of the bed, he does agree to exercises while supine in bed. Patient verbalized no complaints of pain to PT. Appearance Patient in bed post tx with nurse call, phone, tray, all needs met. Mental Status Patient Orientation: Person, Confused Attachments: Oxygen, Collazo Catheter, IV Transfers Therapy Code Descriptions/Definitions Functional [place] Measure: 0=Not Assessed/NA 4=Minimal Assistance 1=Total Assistance 5=Supervision or Setup 2=Maximal Assistance 6=Modified [place] 3=Moderate Assistance 7=Complete [place] Therapy Quality Codes: 6 Independent with activity with or without an assistive device 5 Patient requires set up or clean up by helper. Patient completes activity by themselves 4 Supervision or touching assist (CGA). [place] provide cues , steadying assist 3 The helper provides less than half the effort to complete the activity 2 The helper provides more than half the effort to complete the activity 1 Dependent. 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 Assessment Current Status: Poor Progress poor participation, patient refused to just get out of bed and into recliner PT Short Term Goals Short Term Goals Transfers (B,C,W/C) (FIM): 4 PT Cashier Payments Received Goals Cashier Payments Received Goals PT Cashier Payments Received Goals Time Frame: Oct 30, 2018 Transfers (B,C,W/C) (FIM): 5 Gait (FIM): 1 Gait distance (FIM): 1=up to 49 ft Distance: 10' Gait Level of Assist: 4 Gait Assistive Device: FWW PT Plan Problem List Problem List: Activity Tolerance, Functional Strength, Safety, Balance, Gait, Transfer, Bed Mobility, ROM Treatment/Plan Treatment Plan: Continue Plan of Care Treatment Plan: Bed Mobility, Education, Functional Activity [place], Functional Strength, Gait, Safety, Therapeutic Exercise, Transfers Treatment Duration: Oct 30, 2018 Frequency: 6 times per week Estimated Hrs Per Day: .5 hour per day Patient and/or Family Agrees t: Yes Safety Risks/Education Patient Education: Correct Positioning, Safety Issues Teaching Recipient: Patient Teaching Methods: Demonstration, Discussion Response to Teaching: Reinforcement Needed Time/GCodes Time In: 0840 Time Out: 0855 Total Billed Treatment Time: 15 Total Billed Treatment 1 visit EX 15' PT/OT Therapy GCodes Therapy Functional Limitation: Physical Therapy Test(s)/Tool used to determine: Level of Assistance Scale Functional Limitation-Current Charge Code: MOBCUAlysia Modifier: CK Functional Limitation-Goal Charge Code: MOBSERAFIN Modifier: JULIEN DESHPANDE PT Oct 29, 2018 08:56
--- NOTE | 2018-10-29 11:23 | Occ Therapy Progress Note ---
Therapy Progress Note Pt refused therapy. 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 PERERA encouraged pt to wash hands and face before his lunch came, refused. Recommended to complete UE exercises to keep arms strong, refused. Pt's O2 was beneath his chin, when PERERA asked about oxygen he stated that he did not want to be breathing like he was underwater, wanted to breath different air instead of pure oxygen. 1 visit, refused LORI OVIEDO Oct 29, 2018 11:23
--- NOTE | 2018-10-29 14:00 | NUR ---
URINE OUTPUT 175 SINCE 0700. REFUSED TO SIT IN CHAIR.
[2018-10-29 16:00] VITALS: BP 106/64
--- NOTE | 2018-10-29 16:35 | NUR ---
CM/SS. Patient's friend worked with him yesterday to complete Medicaid application. [employer] contacted [facility] to update and ask if they would reconsider acceptance/admission. They are concerned he will not agree to release his income to cover any obligation outside of Medicare benefits and, therefore, consider his referral terminated. Patient stated he is unable to walk right now, he is not a candidate to return to his home until/unless he greatly improves. A candid conversation will be necessary about pursuing the care he physically needs at this time in order to maximize his potential for independent living. He should be supported as is possible regarding the fact he may have out of pocket expenses and that while his goal is to return to his established rental, it is not a realistic option at this point in time. Perhaps there could be some agreement with the landlord to defer one month's rent until patient's recovery potential is better defined if this would help him temporarily financially. SS to followup Thursday. Patient appears medically ready for discharge once arrangement is complete.
[2018-10-29] MEDS: TAMSULOSIN 0.4 MG (FLOMAX) CAP PO SCH (17:44)
[2018-10-30 00:10] VITALS: BP 88/66
[2018-10-30] MEDS: RT-ALBUTEROL/IPRATROPIUM 3 ML (DUONEB) VIAL INH SCH ×6 (03:07→22:22)
[2018-10-30] MEDS: LEVOTHYROXINE 50 MCG (LEVOTHROID) TAB PO SCH (06:15)
[2018-10-30] MEDS: MULTIVIT W/MINERALS TAB (THERAGRAN M) PO SCH (06:15)
[2018-10-30] MEDS: THIAMINE 100 MG (VITAMIN B-1) TAB PO SCH (06:15)
[2018-10-30] MEDS: FOLIC ACID 1 MG TAB PO SCH (06:15)
[2018-10-30 06:46] LABS: BASOPHILS % (AUTO) 0 % (0-10); EOSINOPHILS % (AUTO) 1 % (0-10); HEMATOCRIT 23 % (40-54); HEMOGLOBIN 7.9 G/DL (13.3-17.7); LYMPHOCYTES # (AUTO) 0.7 X 10^3 (1.0-4.0); LYMPHOCYTES % (AUTO) 14 % (12-44); MEAN CORPUSCULAR HEMOGLOBIN 32 PG (25-34); MEAN CORPUSCULAR HGB CONC 35 G/DL (32-36); MEAN CORPUSCULAR VOLUME 94 FL (80-99); MEAN PLATELET VOLUME 11.7 FL (7.4-10.4); MONOCYTES # (AUTO) 0.3 X 10^3 (0.0-1.0); MONOCYTES % (AUTO) 6 % (0-12); NEUTROPHILS # (AUTO) 3.7 X 10^3 (1.8-7.8); NEUTROPHILS % (AUTO) 80 % (42-75); PLATELET COUNT 108 10^3/uL (130-400); RED BLOOD COUNT 2.45 10^6/uL (4.35-5.85); RED CELL DISTRIBUTION WIDTH 16.2 % (10.0-14.5); WHITE BLOOD COUNT 4.6 10^3/uL (4.3-11.0)
[2018-10-30 07:20] LABS: ALANINE AMINOTRANSFERASE 51 U/L (0-55); ALBUMIN 2.7 GM/DL (3.2-4.5); ALKALINE PHOSPHATASE 118 U/L (40-136); BILIRUBIN,TOTAL 0.6 MG/DL (0.1-1.0); BUN/CREATININE RATIO 16; CALCIUM 7.3 MG/DL (8.5-10.1); CARBON DIOXIDE 20 MMOL/L (21-32); CHLORIDE 97 MMOL/L (98-107); CREATININE SERUM 0.64 MG/DL (0.60-1.30); GFR ESTIMATED > 60; GLUCOSE 95 MG/DL (70-105); MAGNESIUM 1.6 MG/DL (1.8-2.4); PHOSPHORUS 3.4 MG/DL (2.3-4.7); POTASSIUM 3.4 MMOL/L (3.6-5.0); SODIUM 127 MMOL/L (135-145); TOTAL PROTEIN 4.2 GM/DL (6.4-8.2)
[2018-10-30 07:26] VITALS: BP 95/60
[2018-10-30] MEDS: PANTOPRAZOLE 40 MG (PROTONIX) TAB PO SCH (09:41)
--- NOTE | 2018-10-30 09:42 | Physical Therapy Progress Note ---
Therapy Progress Note Pt refused tx this morning stating "too tired from staying up too late last night. I don't work well in the morning." HEALTH UNIT SUPERVISOR encouraged pt with benefits for Therapy but pt continued to refused. 1 visit, no tx UZAIR CHAIDEZ PTA Oct 30, 2018 09:42
--- NOTE | 2018-10-30 11:35 | Progress Note-Hospitalist ---
Subjective HPI/CC On Admission Date Seen by Provider: Oct 30, 2018 Time Seen by Provider: 11:00 Subjective/Events-last exam Patient doing slightly better In no respiratory distress now Very slow to respond but that is baseline Hyponatremia persist Placement issue to a usp is now in process Review of Systems Pulmonary: Dyspnea Objective Exam Vital Signs Vital Signs Date Time Temp Pulse Resp B/P (MAP) Pulse Ox O2 Delivery O2 Flow Rate FiO2 10/30/18 11:04 92 Nasal Cannula 2.00 10/30/18 07:26 96.7 85 18 95/60 (72) Capillary Refill : Less Than 3 Seconds General Appearance: No Apparent Distress, WD/WN, Chronically ill Respiratory: Chest Non Tender, No Accessory Muscle Use, No Respiratory Distress , Wheezing Cardiovascular: Regular Rate, Rhythm, No Edema, No Gallop, No JVD, No Murmur, Normal Peripheral Pulses Neurologic/Psychiatric: Alert, Oriented x3, No Motor/Sensory Deficits, Depressed Affect Results/Procedures Lab Laboratory Tests 10/30/18 06:17 10/30/18 06:19 Patient resulted labs reviewed. Assessment/Plan Assessment and Plan Assess & Plan/Chief Complaint Assessment: s/p UTI with severe sepsis s/p severe dehydration Pancytopenia Anemia s/p transfusion of blood and platelets Long-standing alcoholism Unsure of recovery potential Wheezing Plan: Poor prognosis Poor recovery potential Needs NHP Patient appears to be a hospice candidate Diagnosis/Problems Diagnosis/Problems (1) Severe sepsis Status: Resolved Resolution Date/Time: 10/23/18 @ 13:15 (2) Transfusion of blood during current hospitalization Status: Acute (3) Thrombocytopenia Status: Acute (4) UTI (urinary tract infection) Status: Acute Qualifiers: Urinary tract infection type: acute cystitis Hematuria presence: without hematuria Qualified Codes: N30.00 - Acute cystitis without hematuria (5) Alcoholism Status: Chronic Clinical Quality Measures DVT/VTE Risk/Contraindication: Risk Factor Score Per Nursin RFS Level Per Nursing on Admit: 4+=Very High Contraindications-Pharm: Other *list below* RAVI JASSO DO Oct 30, 2018 11:35
--- NOTE | 2018-10-30 15:22 | Pulmonary Progress Note ---
Subjective Time Seen by a Provider: 15:21 Subjective/Events-last exam No complications noted. Sepsis Event Evaluation Height, Weight, BMI Height: 6'0.00" Weight: 193lbs. 7.0oz. 87.723795dv; 27.1 BMI Method:Stated Exam Exam Vital Signs Date Time Temp Pulse Resp B/P (MAP) Pulse Ox O2 Delivery O2 Flow Rate FiO2 10/30/18 14:51 93 Nasal Cannula 2.00 10/30/18 11:04 92 Nasal Cannula 2.00 10/30/18 09:00 Nasal Cannula 2.00 10/30/18 07:26 96.7 85 18 95/60 (72) 92 Nasal Cannula 2.50 10/30/18 06:52 92 Nasal Cannula 2.00 10/30/18 03:07 96 Nasal Cannula 3.00 10/30/18 00:10 96.7 68 16 88/66 (73) 93 Nasal Cannula 2.50 10/29/18 22:25 95 Nasal Cannula 3.00 10/29/18 21:00 Nasal Cannula 2.00 10/29/18 19:04 92 Nasal Cannula 3.00 10/29/18 16:00 97.1 94 20 106/64 (78) 92 Nasal Cannula 2.50 10/29/18 15:22 93 Nasal Cannula 3.00 I & O 10/30/18 07:00 Intake Total 1760 ml Output Total 575 ml Balance 1185 ml Height & Weight Height: 6'0.00" Weight: 193lbs. 7.0oz. 87.732138dz; 27.1 BMI Method:Stated General Appearance: No Apparent Distress HEENT: Normal ENT Inspection Neck: Full Range of Motion, Normal Inspection Respiratory: No Accessory Muscle Use, No Respiratory Distress Cardiovascular: Irregularly Irregular Capillary Refill: Less Than 3 Seconds Gastrointestinal: non tender, soft Extremity: Pedal Edema Neurologic/Psychiatric: Alert, Oriented x3, No Motor/Sensory Deficits, Normal Mood/Affect Skin: Normal Color, Warm/Dry, Ecchymosis Results Lab Laboratory Tests 10/29/18 07:25 10/30/18 06:17 10/30/18 06:19 Assessment/Plan Assessment/Plan Dyspnea - improving -only requiring 2 liter NC -repeat imaging as out patient. -SVNS to Q4 -Hep lock IVF UTI with severe sepsis -improving Atelectasis -Increase activity -Monitor -IS anemia with Hypotension and thrombocytopenia -S/P Transfuse 2 units PRBC -S/P 1 6pk platelets x 1 hypothyroid Weakness/debility -CT of head- is negative Pancytopenia -oncology is following PT is awaiting ECF placement. SOM ALTMAN DO Oct 30, 2018 15:21
[2018-10-30 15:53] VITALS: BP 85/53
--- NOTE | 2018-10-30 17:40 | NUR ---
Dr. Jennings notified of the patient status no new orders at this time
[2018-10-30] MEDS: TAMSULOSIN 0.4 MG (FLOMAX) CAP PO SCH (18:23)
--- NOTE | 2018-10-30 20:57 | NUR ---
Pt refusing to allow this RN or [facility] staff to change soiled bed linens. Linens slightly soiled from bilateral arms wheeping. Pt encouraged to maintain proper hygiene; continues to refuse staff assistance. Will continue to monitor.
[2018-10-30 22:33] VITALS: BP 87/54
[2018-10-31] VITALS: BP 87/54
[2018-10-31] MEDS: RT-ALBUTEROL/IPRATROPIUM 3 ML (DUONEB) VIAL INH SCH ×6 (02:22→22:42)
--- NOTE | 2018-10-31 06:00 | NUR ---
This RN at bedside to pass morning medications. This RN requesting to pt to change position in bed, change linens et pt's gown. Pt refusing to comply with RN request, stating that he is comfortable in bed et will change gown et linens later on during the morning.
[2018-10-31] MEDS: MULTIVIT W/MINERALS TAB (THERAGRAN M) PO SCH (06:12)
[2018-10-31] MEDS: THIAMINE 100 MG (VITAMIN B-1) TAB PO SCH (06:13)
[2018-10-31] MEDS: FOLIC ACID 1 MG TAB PO SCH (06:13)
[2018-10-31] MEDS: LEVOTHYROXINE 50 MCG (LEVOTHROID) TAB PO SCH (06:13)
--- NOTE | 2018-10-31 06:47 | Pulmonary Progress Note ---
Subjective Time Seen by a Provider: 06:46 Subjective/Events-last exam Pt feels more SOB this AM. Sepsis Event Evaluation Height, Weight, BMI Height: 6'0.00" Weight: 195lbs. 6.0oz. 88.504239aq; 27.1 BMI Method:Stated Exam Exam Vital Signs Date Time Temp Pulse Resp B/P (MAP) Pulse Ox O2 Delivery O2 Flow Rate FiO2 10/31/18 02:22 92 Nasal Cannula 2.00 10/31/18 00:00 97.6 78 18 87/54 (65) 94 Nasal Cannula 2.00 10/30/18 22:33 97.6 78 18 87/54 (65) 94 Nasal Cannula 2.00 10/30/18 22:22 92 Nasal Cannula 2.00 10/30/18 21:00 Nasal Cannula 2.00 10/30/18 15:53 97.2 75 20 85/53 (64) 93 Nasal Cannula 2.00 10/30/18 14:51 93 Nasal Cannula 2.00 10/30/18 11:04 92 Nasal Cannula 2.00 10/30/18 09:00 Nasal Cannula 2.00 10/30/18 07:26 96.7 85 18 95/60 (72) 92 Nasal Cannula 2.50 10/30/18 06:52 92 Nasal Cannula 2.00 I & O 10/31/18 07:00 Intake Total 1050 ml Output Total 400 ml Balance 650 ml Height & Weight Height: 6'0.00" Weight: 195lbs. 6.0oz. 88.548650mc; 27.1 BMI Method:Stated General Appearance: No Apparent Distress HEENT: Normal ENT Inspection Neck: Full Range of Motion, Normal Inspection Respiratory: No Accessory Muscle Use, No Respiratory Distress Cardiovascular: Irregularly Irregular Capillary Refill: Less Than 3 Seconds Gastrointestinal: non tender, soft Extremity: Pedal Edema Neurologic/Psychiatric: Alert, Oriented x3, No Motor/Sensory Deficits, Normal Mood/Affect Skin: Normal Color, Warm/Dry, Ecchymosis Results Lab Laboratory Tests 10/29/18 07:25 10/30/18 06:17 10/30/18 06:19 Assessment/Plan Assessment/Plan Dyspnea - -Check PA/LAT CXR -only requiring 2 liter NC -repeat imaging as out patient. -SVNS to Q4 -Hep lock IVF UTI with severe sepsis -improving Atelectasis -Increase activity -Monitor -IS anemia with Hypotension and thrombocytopenia -S/P Transfuse 2 units PRBC -S/P 1 6pk platelets x 1 hypothyroid Weakness/debility -CT of head- is negative Pancytopenia -oncology is following PT is awaiting ECF placement. SOM ALTMAN DO Oct 31, 2018 06:47
--- NOTE | 2018-10-31 07:02 | NUR ---
RT et this RN at bedside. Pt c/o SOB. Pt found several times overnight by this RN with nasal cannula out of nose. RT offered pt a fan. Pt refused, stating " I would freeze my ass off" if a fan was placed in the room. Pt offered to be boosted up in bed, but refused. Door to pt's room left open to facilitate air movement. No c/o of SOB at this time.
[2018-10-31 07:24] LABS: ALANINE AMINOTRANSFERASE 44 U/L (0-55); ALBUMIN 2.8 GM/DL (3.2-4.5); ALKALINE PHOSPHATASE 124 U/L (40-136); BILIRUBIN,TOTAL 0.7 MG/DL (0.1-1.0); BUN/CREATININE RATIO 17; CALCIUM 7.2 MG/DL (8.5-10.1); CARBON DIOXIDE 20 MMOL/L (21-32); CHLORIDE 96 MMOL/L (98-107); CREATININE SERUM 0.64 MG/DL (0.60-1.30); GFR ESTIMATED > 60; GLUCOSE 97 MG/DL (70-105); MAGNESIUM 1.4 MG/DL (1.8-2.4); PHOSPHORUS 3.3 MG/DL (2.3-4.7); POTASSIUM 3.6 MMOL/L (3.6-5.0); SODIUM 126 MMOL/L (135-145); TOTAL PROTEIN 4.2 GM/DL (6.4-8.2)
[2018-10-31 07:25] LABS: BASOPHILS % (AUTO) 0 % (0-10); EOSINOPHILS % (AUTO) 1 % (0-10); HEMATOCRIT 22 % (40-54); HEMOGLOBIN 7.4 G/DL (13.3-17.7); LYMPHOCYTES # (AUTO) 0.8 X 10^3 (1.0-4.0); LYMPHOCYTES % (AUTO) 16 % (12-44); MEAN CORPUSCULAR HEMOGLOBIN 31 PG (25-34); MEAN CORPUSCULAR HGB CONC 33 G/DL (32-36); MEAN CORPUSCULAR VOLUME 94 FL (80-99); MEAN PLATELET VOLUME 11.2 FL (7.4-10.4); MONOCYTES # (AUTO) 0.4 X 10^3 (0.0-1.0); MONOCYTES % (AUTO) 9 % (0-12); NEUTROPHILS # (AUTO) 3.7 X 10^3 (1.8-7.8); NEUTROPHILS % (AUTO) 75 % (42-75); PLATELET COUNT 118 10^3/uL (130-400); RED BLOOD COUNT 2.39 10^6/uL (4.35-5.85); RED CELL DISTRIBUTION WIDTH 16.3 % (10.0-14.5)
[2018-10-31 08:00] VITALS: BP 89/54
[2018-10-31] MEDS: PANTOPRAZOLE 40 MG (PROTONIX) TAB PO SCH (08:08)
--- NOTE | 2018-10-31 11:43 | Diagnostic Imaging Report ---
INDICATION: Shortness of air, chest heaviness. TECHNIQUE: Two view chest at 11:42 AM CORRELATION STUDY: 10/25/2018 FINDINGS: Limited depth of inspiration. Given this, there is some atelectasis and/or, less likely infiltrate, in the lung bases along with small effusions. Heart size, mediastinum and vasculature are overall within normal limits. Calcifications of the aortic arch present. Visualized osseous structures are unremarkable. IMPRESSION: 1. Bibasilar area of atelectasis and/or infiltrate along with trace effusions. 2. Borderline heart size without evidence for overt failure. Dictated by: Dictated on workstation # [id number]
--- NOTE | 2018-10-31 12:35 | Progress Note-Hospitalist ---
Subjective HPI/CC On Admission Date Seen by Provider: Oct 31, 2018 Time Seen by Provider: 11:00 Subjective/Events-last exam Patient still doing poorly No recovery noted Chest x-ray ordered by Dr. Sewell reveals bilateral atelectasis Labs remain the same Patient is definitely hospice candidate and no recovery potential expected Review of Systems Pulmonary: Dyspnea Objective Exam Vital Signs Vital Signs Date Time Temp Pulse Resp B/P (MAP) Pulse Ox O2 Delivery O2 Flow Rate FiO2 10/31/18 10:33 91 Nasal Cannula 2.00 10/31/18 08:00 96.0 77 18 89/54 (66) Capillary Refill : Less Than 3 Seconds General Appearance: No Apparent Distress, WD/WN, Chronically ill Respiratory: Chest Non Tender, No Accessory Muscle Use, No Respiratory Distress , Crackles, Wheezing Cardiovascular: Regular Rate, Rhythm, No Gallop, No JVD, No Murmur, Normal Peripheral Pulses Extremity: Pedal Edema Neurologic/Psychiatric: Alert, Oriented x3, No Motor/Sensory Deficits, Normal Mood/Affect Results/Procedures Lab Laboratory Tests 10/31/18 06:52 10/31/18 07:17 Patient resulted labs reviewed. Assessment/Plan Assessment and Plan Assess & Plan/Chief Complaint Assessment: s/p UTI with severe sepsis s/p severe dehydration Pancytopenia Anemia s/p transfusion of blood and platelets Long-standing alcoholism Unsure of recovery potential Wheezing Plan: Poor prognosis Poor recovery potential Needs NHP Patient appears to be a hospice candidate Diagnosis/Problems Diagnosis/Problems (1) Severe sepsis Status: Resolved Resolution Date/Time: 10/23/18 @ 13:15 (2) Transfusion of blood during current hospitalization Status: Acute (3) Thrombocytopenia Status: Acute (4) UTI (urinary tract infection) Status: Acute Qualifiers: Urinary tract infection type: acute cystitis Hematuria presence: without hematuria Qualified Codes: N30.00 - Acute cystitis without hematuria (5) Alcoholism Status: Chronic Clinical Quality Measures DVT/VTE Risk/Contraindication: Risk Factor Score Per Nursin RFS Level Per Nursing on Admit: 4+=Very High Contraindications-Pharm: Other *list below* RAVI JASSO DO Oct 31, 2018 12:35
[2018-10-31 16:14] VITALS: BP 94/59
[2018-10-31] MEDS: TAMSULOSIN 0.4 MG (FLOMAX) CAP PO SCH (18:02)
[2018-11-01 00:34] VITALS: BP 104/59
[2018-11-01] MEDS: RT-ALBUTEROL/IPRATROPIUM 3 ML (DUONEB) VIAL INH SCH ×6 (03:36→22:12)
[2018-11-01] MEDS: LEVOTHYROXINE 50 MCG (LEVOTHROID) TAB PO SCH (05:45)
[2018-11-01] MEDS: MULTIVIT W/MINERALS TAB (THERAGRAN M) PO SCH (05:45)
[2018-11-01] MEDS: THIAMINE 100 MG (VITAMIN B-1) TAB PO SCH (05:45)
[2018-11-01] MEDS: FOLIC ACID 1 MG TAB PO SCH (05:45)
--- NOTE | 2018-11-01 08:00 | Progress Note (SOAP) ---
Subjective Time Seen by a Provider: 07:57 Subjective/Events-last exam Patient resting comfortably today with his oxygen. Patient has ascites and abdomen. Patient has trouble getting around. Patient waiting for prison placement Objective Exam Vital Signs Date Time Temp Pulse Resp B/P (MAP) Pulse Ox O2 Delivery O2 Flow Rate FiO2 11/01/18 07:22 90 Nasal Cannula 2.00 11/01/18 03:36 93 Nasal Cannula 2.00 11/01/18 00:34 96.8 76 19 104/59 (74) 85 Nasal Cannula 2.00 10/31/18 22:42 92 Nasal Cannula 2.00 10/31/18 21:00 Nasal Cannula 2.00 10/31/18 19:18 92 Nasal Cannula 2.00 10/31/18 16:14 97.8 76 14 94/59 (71) 95 Nasal Cannula 2.00 10/31/18 14:18 93 Nasal Cannula 2.00 10/31/18 10:33 91 Nasal Cannula 2.00 10/31/18 09:00 Nasal Cannula 2.00 10/31/18 08:00 96.0 77 18 89/54 (66) 96 Nasal Cannula 2.00 I & O 11/01/18 07:00 Intake Total 800 ml Output Total 650 ml Balance 150 ml Capillary Refill : Less Than 3 Seconds General Appearance: No Apparent Distress, Other (Ascites) HEENT: Normal ENT Inspection Neck: Full Range of Motion, Normal Inspection Respiratory: Decreased Breath Sounds, Wheezing Cardiovascular: Regular Rate, Rhythm, No Murmur Gastrointestinal: other (Ascites) Extremity: Pedal Edema, Other Results Lab Microbiology 10/20/18 Blood Culture - Final, Complete No growth 10/20/18 MRSA Screen - Final, Complete MRSA not isolated 10/27/18 Urine Culture - Final, Complete NO GROWTH Assessment/Plan Assessment/Plan Assess & Plan/Chief Complaint Sepsis. UTI. Chronic liver disease. Alcoholism. Hypotension. Pancytopenia. Anemia. Hypothyroid. Weakness.. . 10/25/18. Sepsis. UTI. Hyponatremia. Elevated liver tests. UTI due to enterococcus bacillus. Acute respiratory distress. Hypothyroid. Weakness. Alcoholism. Malnutrition.. . . 10/27/18. Sepsis. UTI. Pancytopenia. Hypothyroid. Hyponatremia. Alcoholism. Patient weak. Patient wanting to go to a prison. healthcare advisory services manager to plan for [facility]. . 10/28/18. Sepsis. UTI. Pancytopenia. Hypothyroid. Alcoholism. Patient not voiding CAT scan ordered. Bladder scan not showing much urine in bladder. . 10/29/18. Sepsis better. UTI resolved. Pancytopenia improving. Alcoholism. Collazo catheter working. Hyponatremia. Patient willing to go to a prison. . 11/01/18. Sepsis better. UTI resolved. Pancytopenia improving. Alcoholism. Tobaccoism. Patient has trouble moving around. Patient has swelling of the legs and ascites in the abdomen Clinical Quality Measures Admission Status Admission Dx Pancytopenia. Debility. Hypothermia. Hypomagnesemia. Hypophosphatemia. Alcoholism. Tobacco usage. Hypothyroid. DVT/VTE Risk/Contraindication: Risk Factor Score Per Nursin RFS Level Per Nursing on Admit: 4+=Very High Contraindications-Pharm: Other *list below* ADEN HERNANDEZ DO Nov 01, 2018 08:00
--- NOTE | 2018-11-01 08:13 | Pulmonary Progress Note ---
Subjective Time Seen by a Provider: 08:13 Subjective/Events-last exam No complications noted. Sepsis Event Evaluation Height, Weight, BMI Height: 6'0.00" Weight: 190lbs. 4.0oz. 86.666185vx; 27.1 BMI Method:Stated Exam Exam Vital Signs Date Time Temp Pulse Resp B/P (MAP) Pulse Ox O2 Delivery O2 Flow Rate FiO2 11/01/18 07:22 90 Nasal Cannula 2.00 11/01/18 03:36 93 Nasal Cannula 2.00 11/01/18 00:34 96.8 76 19 104/59 (74) 85 Nasal Cannula 2.00 10/31/18 22:42 92 Nasal Cannula 2.00 10/31/18 21:00 Nasal Cannula 2.00 10/31/18 19:18 92 Nasal Cannula 2.00 10/31/18 16:14 97.8 76 14 94/59 (71) 95 Nasal Cannula 2.00 10/31/18 14:18 93 Nasal Cannula 2.00 10/31/18 10:33 91 Nasal Cannula 2.00 10/31/18 09:00 Nasal Cannula 2.00 I & O 11/01/18 07:00 Intake Total 800 ml Output Total 650 ml Balance 150 ml Height & Weight Height: 6'0.00" Weight: 190lbs. 4.0oz. 86.900043me; 27.1 BMI Method:Stated General Appearance: No Apparent Distress, Other (Ascites) HEENT: Normal ENT Inspection Neck: Full Range of Motion, Normal Inspection Respiratory: Decreased Breath Sounds, Wheezing Cardiovascular: Regular Rate, Rhythm, No Murmur Capillary Refill: Less Than 3 Seconds Gastrointestinal: other (Ascites) Extremity: Pedal Edema, Other Neurologic/Psychiatric: Alert, Oriented x3, No Motor/Sensory Deficits, Normal Mood/Affect Skin: Normal Color, Warm/Dry, Ecchymosis Results Lab Laboratory Tests 10/31/18 06:52 10/31/18 07:17 Assessment/Plan Assessment/Plan Dyspnea - -CXR reviewed -only requiring 2 liter NC -repeat imaging as out patient. -SVNS to Q4 -Hep lock IVF UTI with severe sepsis -improving Atelectasis -Increase activity -Monitor -IS anemia with Hypotension and thrombocytopenia -S/P Transfuse 2 units PRBC -S/P 1 6pk platelets x 1 hypothyroid Weakness/debility -CT of head- is negative Pancytopenia -oncology is following PT is awaiting ECF placement. SOM ALTMAN DO Nov 01, 2018 08:13
[2018-11-01 08:14] VITALS: BP 101/62
--- NOTE | 2018-11-01 08:33 | Physical Therapy Daily Note ---
PT Daily Note-Current Subjective Patient in bed pre tx, agrees to bed exercises but refused to get out of bed or sit at the edge of the bed. Patient has 10/10 pain in left thigh, he says nursing is aware of his pain but he cannot get any more pain meds at this time. Appearance Patient in bed post tx with nurse call, phone, tray, bed alarm on. Mental Status Patient Orientation: Person, Confused Transfers Therapy Code Descriptions/Definitions Functional [place] Measure: 0=Not Assessed/NA 4=Minimal Assistance 1=Total Assistance 5=Supervision or Setup 2=Maximal Assistance 6=Modified [place] 3=Moderate Assistance 7=Complete [place] Therapy Quality Codes: 6 Independent with activity with or without an assistive device 5 Patient requires set up or clean up by helper. Patient completes activity by themselves 4 Supervision or touching assist (CGA). Nadeau provide cues , steadying assist 3 The helper provides less than half the effort to complete the activity 2 The helper provides more than half the effort to complete the activity 1 Dependent. The helper does all the effort to complete an activity 7 Patient refused to complete or attempt activity 9 The patient did not perform the activity before the current illness or injury 88 Not attempted due to Medical conditions or safety concerns Weight Bearing Right Lower Extremity: Right Full Weight Bearing Left Lower Extremity: Left Full Weight Bearing Exercises Supine Ex: Ankle pumps, Quad Set, Glut sets, Heel Slides (x15), Short Arc Quads , Straight leg raise, Hip abd/add Supine Reps: 10 Treatments LE AROM Assessment Current Status: Poor Progress Patient has right drop foot. He needs assist with his ROM, poor motivation PT Short Term Goals Short Term Goals Transfers (B,C,W/C) (FIM): 4 PT Assisted Goals Resident Associate Goals PT Assisted Goals Time Frame: Oct 30, 2018 Transfers (B,C,W/C) (FIM): 5 Gait (FIM): 1 Gait distance (FIM): 1=up to 49 ft Distance: 10' Gait Level of Assist: 4 Gait Assistive Device: FWW PT Plan Problem List Problem List: Activity Tolerance, Functional Strength, Safety, Balance, Gait, Transfer, Bed Mobility, ROM Treatment/Plan Treatment Plan: Continue Plan of Care Treatment Plan: Bed Mobility, Education, Functional Activity [place], Functional Strength, Gait, Safety, Therapeutic Exercise, Transfers Treatment Duration: Oct 30, 2018 Frequency: 6 times per week Estimated Hrs Per Day: .5 hour per day Patient and/or Family Agrees t: Yes Safety Risks/Education Patient Education: Correct Positioning, Safety Issues Teaching Recipient: Patient Teaching Methods: Demonstration, Discussion Response to Teaching: Reinforcement Needed Time/GCodes Time In: 816 Time Out: 829 Total Billed Treatment Time: 13 Total Billed Treatment 1 visit EX 13' PT/OT Therapy GCodes Therapy Functional Limitation: Physical Therapy Test(s)/Tool used to determine: Level of Assistance Scale Functional Limitation-Current Charge Code: MOBCUAlysia Modifier: CK Functional Limitation-Goal Charge Code: MOBGOSADE Modifier: JULIEN DESHPANDE PT Nov 01, 2018 08:33
[2018-11-01] MEDS: PANTOPRAZOLE 40 MG (PROTONIX) TAB PO SCH (09:11)
[2018-11-01] MEDS: SPIRONOLACTONE 25 MG (ALDACTONE) TAB PO SCH ×2 (09:12→20:46)
--- NOTE | 2018-11-01 09:24 | NUR ---
CM/SS this ad copy writer had a voicemail message from [facility] on 10/29 that they would not accept the patient.
--- NOTE | 2018-11-01 09:42 | NUR ---
CM/SS sent referral information to [facility] for consideration.
--- NOTE | 2018-11-01 10:00 | NUR ---
New order for spironolactone 25mg po bid. This RN discussed patient's history of slight hypotension. felt that the medications should be fine and not affect blood pressure in this dosage, but be beneficial for the edema.
--- NOTE | 2018-11-01 11:07 | Occupational Ther Daily Note ---
OT Current Status-Daily Note Subjective Pt alert, lying in bed. Nrsg had just left room. Pt attempting to discuss what procedure he will have done to his bladder. Agrees to therapy. Refuses to sit up on EOB. Mental Status/Objective Patient Orientation: Person, Place, Time, Situation Therapy Code Descriptions/Definitions Functional [place] Measure: 0=Not Assessed/NA 4=Minimal Assistance 1=Total Assistance 5=Supervision or Setup 2=Maximal Assistance 6=Modified [place] 3=Moderate Assistance 7=Complete [place] Attachments: Collazo Catheter, IV, Oxygen Other Treatment Pt declines any ADLs, agrees to UE exercises. 3 sets 5 reps of UE exercises against gravity. Respiratory in room monitoring O2 sats, pt stayed at 90 during exercises. Increased SOA with exercises. After therapy, respiratory in room giving treatment, pt lying in bed. All needs met in room. OT Short Term Goals Short Term Goals Time Frame: Oct 28, 2018 Eating(FIM): 5 Grooming(FIM): 5 Bathing(FIM): 4 Upper Body Dressing(FIM): 4 Lower Body Dressing(FIM): 3 Toileting(FIM): 3 Transfers (B,C,W/C) (FIM): 4 Toilet/Commode Transfer(FIM): 4 Shower Transfer(FIM): 3 Additional Short Term Goals: 1-Demonstrate ADL Tasks, 2-Verbalize Understanding , 3-ImproveStrength/[place] 1=Demonstrate adherence to instructed precautions during ADL tasks. 2=Patient will verbalize/demonstrate understanding of assistive devices/ modifications for ADL. 3=Patient will improve strength/tolerance for activity to enable patient to perform ADL's. OT Train Electronic Technician Goals Train Electronic Technician Goals Time Frame: Nov 04, 2018 Eating (FIM): 6 Grooming(FIM): 6 Bathing(FIM): 5 Upper Body Dressing(FIM): 5 Lower Body Dressing(FIM): 5 Toileting(FIM): 6 Transfers (B,C,W/C) (FIM): 6 Toilet/Commode Transfer(FIM): 6 Shower Transfer(FIM): 5 Additional Goals: 1-Demonstrate ADL Tasks, 2-Verbalize Understanding, 3- ImproveStrength/[place] 1=Demonstrate adherence to instructed precautions during ADL tasks. 2=Patient will verbalize/demonstrate understanding of assistive devices/ modifications for ADL. 3=Patient will improve strength/tolerance for activity to enable patient to perform ADL's. OT Education/Plan Discharge Recommendations Plan/Recommendations: Continue POC Treatment Plan/Plan of Care Patient would benefit from OT for education, treatment and training to promote independence in ADL's, mobility, safety and/or upper extremity function for ADL' s. Plan of Care: ADL Retraining, Functional Mobility, UE Funct Exercise/Act Treatment Duration: Nov 04, 2018 Frequency: 5 times per week Estimated Hrs Per Day: .25 hour per day Agreement: Yes Rehab Potential: Fair Time/GCodes Start Time: 10:56 Stop Time: 11:06 Total Time Billed (hr/min): 10 Billed Treatment Time 1 visit-EX 1 (10 min) PT/OT Therapy GCodes Therapy Functional Limitation: Physical Therapy Test(s)/Tool used to determine: Level of Assistance Scale Functional Limitation-Current Charge Code: MOBCUR Modifier: CK Functional Limitation-Goal Charge Code: MOBGOAL Modifier: LORI GOMES Nov 01, 2018 11:07
--- NOTE | 2018-11-01 11:31 | CONSULTATION REPORT ---
DATE OF SERVICE: 11/01/2018 ATTENDING PHYSICIAN: Kehinde Cortes DO SUMMARY: A 63-year-old white man admitted to the hospital because of multiple problems among which low care, sepsis, hypothermia, debility, anemia, hypoglycemia, hypomagnesemia, hypophosphatemia and pancytopenia. The patient had trouble voiding with a trial of voiding failing. He has been on Flomax 0.4 mg daily a couple of years. He does have symptoms at home nocturia x3, hesitancy, weakness of the stream and feeling of incomplete emptying. ALLERGIES: He has no known drug allergies. MEDICATIONS: He is on folic acid, Synthroid, Flomax, thiamine, multivitamins; frequency and dose per chart. SOCIAL HISTORY: He smokes and drinks. He denies recreational drugs, has not had any surgery on his urinary tract. PHYSICAL EXAMINATION: VITAL SIGNS: Per chart. GENERAL: Kind of debilitated, in no acute distress. EYES: There is no pallor and no icterus. NECK: Supple. No bruits. CHEST: Clear and nontender. HEART: Regular rate and rhythm, no murmurs. ABDOMEN: Soft and nontender. EXTREMITIES: Lower extremities, no edema or cyanosis. NEUROLOGIC: Grossly intact, oriented x3. GENITOURINARY: Deferred at the time of cystoscopy. IMPRESSION: 1. Urinary retention, benign prostatic hyperplasia and/or neurogenic bladder. 2. Medical issues per history. PLAN: Flexible cystoscopy at bedside tomorrow under local and manage accordingly. We will examine him at that time urologically. The procedure was fully explained to the patient and all of his questions were answered. Job ID: [id number] DocumentID: [id number] Dictated Date: 11/01/2018 10:16:37 Biodiesel Processing Technician Date: 11/01/2018 10:31:44 Dictated By: ELDA MONTEIRO MD
--- NOTE | 2018-11-01 11:53 | NUR ---
CM/SS spoke again with [facility] and their availability for male beds, they did have one open up. Referral information was sent again for consideration.
--- NOTE | 2018-11-01 14:14 | NUR ---
CM/SS attempted to follow up on referral sent out. Left message for [facility], Willie. Spoke with Diandra at [facility] and their DON is out this day, so they would not have any answer on acceptance until 11/02/18.
--- NOTE | 2018-11-01 14:25 | NUR ---
CM/SS [facility] called back and they do not have a bed available.
[2018-11-01 16:00] VITALS: BP 105/75
[2018-11-01] MEDS: TAMSULOSIN 0.4 MG (FLOMAX) CAP PO SCH (18:07)
[2018-11-01 20:30] VITALS: BP 122/83
[2018-11-02 00:10] VITALS: BP 105/61
[2018-11-02] MEDS: RT-ALBUTEROL/IPRATROPIUM 3 ML (DUONEB) VIAL INH SCH ×6 (02:01→21:49)
[2018-11-02 05:53] LABS: HEMOGLOBIN 7.4 G/DL (13.3-17.7); RED BLOOD COUNT 2.27 10^6/uL (4.35-5.85); RED CELL DISTRIBUTION WIDTH 15.8 % (10.0-14.5); WHITE BLOOD COUNT 3.6 10^3/uL (4.3-11.0)
[2018-11-02] MEDS: MULTIVIT W/MINERALS TAB (THERAGRAN M) PO SCH (06:09)
[2018-11-02] MEDS: ACETAMINOPHEN 500 MG TAB (TYLENOL) PO PRN (06:09)
[2018-11-02] MEDS: THIAMINE 100 MG (VITAMIN B-1) TAB PO SCH (06:09)
[2018-11-02] MEDS: LEVOTHYROXINE 50 MCG (LEVOTHROID) TAB PO SCH (06:09)
[2018-11-02 06:11] LABS: ALANINE AMINOTRANSFERASE 44 U/L (0-55); ALBUMIN 2.7 GM/DL (3.2-4.5); ALKALINE PHOSPHATASE 107 U/L (40-136); BILIRUBIN,TOTAL 0.9 MG/DL (0.1-1.0); BUN/CREATININE RATIO 18; CALCIUM 7.4 MG/DL (8.5-10.1); CARBON DIOXIDE 24 MMOL/L (21-32); CHLORIDE 95 MMOL/L (98-107); GFR ESTIMATED > 60; GLUCOSE 75 MG/DL (70-105); POTASSIUM 3.3 MMOL/L (3.6-5.0); SODIUM 127 MMOL/L (135-145); TOTAL PROTEIN 4.2 GM/DL (6.4-8.2)
[2018-11-02] MEDS: FOLIC ACID 1 MG TAB PO SCH (06:11)
--- NOTE | 2018-11-02 07:04 | Pulmonary Progress Note ---
Subjective Time Seen by a Provider: 07:03 Subjective/Events-last exam NO complications noted. Sepsis Event Evaluation Height, Weight, BMI Height: 6'0.00" Weight: 193lbs. 4.0oz. 87.677855xo; 27.1 BMI Method:Stated Exam Exam Vital Signs Date Time Temp Pulse Resp B/P (MAP) Pulse Ox O2 Delivery O2 Flow Rate FiO2 11/02/18 06:52 95 Nasal Cannula 2.00 11/02/18 02:01 92 Nasal Cannula 2.00 11/02/18 00:10 97.6 79 16 105/61 (76) 96 High Flow N/C 2.50 11/01/18 22:12 92 Nasal Cannula 2.00 11/01/18 21:00 Nasal Cannula 2.00 11/01/18 20:30 97.2 84 20 122/83 (96) 96 Room Air 11/01/18 18:41 89 Nasal Cannula 2.00 11/01/18 16:00 96.6 83 18 105/75 (85) 96 High Flow N/C 2.50 11/01/18 15:09 Nasal Cannula 2.00 11/01/18 10:58 91 Nasal Cannula 2.00 11/01/18 08:32 Nasal Cannula 2.00 11/01/18 08:14 97.0 75 18 101/62 (75) 75 High Flow N/C 2.50 11/01/18 07:22 90 Nasal Cannula 2.00 I & O 11/02/18 07:00 Intake Total 1170 ml Output Total 750 ml Balance 420 ml Height & Weight Height: 6'0.00" Weight: 193lbs. 4.0oz. 87.206476jp; 27.1 BMI Method:Stated General Appearance: No Apparent Distress, Other (Ascites) HEENT: Normal ENT Inspection Neck: Full Range of Motion, Normal Inspection Respiratory: Decreased Breath Sounds, Wheezing Cardiovascular: Regular Rate, Rhythm, No Murmur Capillary Refill: Less Than 3 Seconds Gastrointestinal: other (Ascites) Extremity: Pedal Edema, Other Neurologic/Psychiatric: Alert, Oriented x3, No Motor/Sensory Deficits, Normal Mood/Affect Skin: Normal Color, Warm/Dry, Ecchymosis Results Lab Laboratory Tests 10/31/18 07:17 11/02/18 05:26 Assessment/Plan Assessment/Plan Dyspnea - -CXR reviewed -only requiring 2 liter NC -SVNS to Q4 -Hep lock IVF Atelectasis -Increase activity -Monitor -IS anemia with Hypotension and thrombocytopenia -S/P Transfuse 2 units PRBC -S/P 1 6pk platelets x 1 hypothyroid Weakness/debility -CT of head- is negative Pancytopenia -oncology is following PT is awaiting ECF placement. SOM ALTMAN DO Nov 02, 2018 07:03
--- NOTE | 2018-11-02 07:11 | Progress Note-Pre Operative ---
Pre-Operative Progress Note H&P Reviewed The H&P was reviewed, patient examined and no changes noted. Date Seen by Provider: Nov 02, 2018 Time Seen by Provider: 07:10 Date H&P Reviewed: Nov 02, 2018 Time H&P Reviewed: 07:10 Pre-Operative Diagnosis: URINE RETENTION ELDA MONTEIRO MD Nov 02, 2018 07:11
--- NOTE | 2018-11-02 07:17 | Progress Note-Post Operative ---
Post-Operative Progess Note Surgeon (s)/Wood Finisher Apprentice (s) Surgeon ELDA MONTEIRO MD Wood Finisher Apprentice: none Pre-Operative Diagnosis URINE RETENTION Post-Operative Diagnosis same Procedure & Operative Findings Date of Procedure 11/02/18 Procedure Performed/Findings CYSTOSCOPY Anesthesia Type LOCAL Estimated Blood Loss Estimated blood loss (mL): NONE Specimens/Packing Specimens Removed NONE Packing: NONE ELDA MONTEIRO MD Nov 02, 2018 07:17
[2018-11-02 08:00] VITALS: BP 94/61
[2018-11-02] MEDS ORDERED: KCL 10 MEQ TAB (MICRO K) PO NR (08:00)
--- NOTE | 2018-11-02 08:06 | Progress Note (SOAP) ---
Subjective Time Seen by a Provider: 08:04 Subjective/Events-last exam Patient lethargic this morning. Patient has slight confusion. Waiting for [facility] Objective Exam Vital Signs Date Time Temp Pulse Resp B/P (MAP) Pulse Ox O2 Delivery O2 Flow Rate FiO2 11/02/18 06:52 95 Nasal Cannula 2.00 11/02/18 02:01 92 Nasal Cannula 2.00 11/02/18 00:10 97.6 79 16 105/61 (76) 96 High Flow N/C 2.50 11/01/18 22:12 92 Nasal Cannula 2.00 11/01/18 21:00 Nasal Cannula 2.00 11/01/18 20:30 97.2 84 20 122/83 (96) 96 Room Air 11/01/18 18:41 89 Nasal Cannula 2.00 11/01/18 16:00 96.6 83 18 105/75 (85) 96 High Flow N/C 2.50 11/01/18 15:09 Nasal Cannula 2.00 11/01/18 10:58 91 Nasal Cannula 2.00 11/01/18 08:32 Nasal Cannula 2.00 11/01/18 08:14 97.0 75 18 101/62 (75) 75 High Flow N/C 2.50 I & O 11/02/18 07:00 Intake Total 1170 ml Output Total 750 ml Balance 420 ml Capillary Refill : Less Than 3 Seconds General Appearance: No Apparent Distress HEENT: Normal ENT Inspection Neck: Normal Inspection Respiratory: No Accessory Muscle Use, No Respiratory Distress Cardiovascular: Regular Rate, Rhythm Gastrointestinal: non tender, other (Diabetes) Results Lab Laboratory Tests 11/02/18 05:26: White Blood Count 3.6L, Red Blood Count 2.27L, Hemoglobin 7.4L, Hematocrit 21L, Mean Corpuscular Volume 94, Mean Corpuscular Hemoglobin 33, Mean Corpuscular Hemoglobin Concent 35, Red Cell Distribution Width 15.8H, Platelet Count 135, Mean Platelet Volume 11.0H, Sodium Level 127L, Potassium Level 3.3L, Chloride Level 95L, Carbon Dioxide Level 24, Anion Gap 8, Blood Urea Nitrogen 11, Creatinine 0.60, Estimat Glomerular Filtration Rate > 60, BUN/Creatinine Ratio 18, Glucose Level 75, Calcium Level 7.4L, Corrected Calcium 8.4L, Total Bilirubin 0.9, Aspartate Amino Transf (AST/SGOT) 55H, Alanine Aminotransferase ( ALT/SGPT) 44, Alkaline Phosphatase 107, Total Protein 4.2L, Albumin 2.7L Microbiology 10/20/18 Blood Culture - Final, Complete No growth 10/20/18 MRSA Screen - Final, Complete MRSA not isolated 10/27/18 Urine Culture - Final, Complete NO GROWTH Assessment/Plan Assessment/Plan Assess & Plan/Chief Complaint Sepsis. UTI. Chronic liver disease. Alcoholism. Hypotension. Pancytopenia. Anemia. Hypothyroid. Weakness.. . 10/25/18. Sepsis. UTI. Hyponatremia. Elevated liver tests. UTI due to enterococcus bacillus. Acute respiratory distress. Hypothyroid. Weakness. Alcoholism. Malnutrition.. . . 10/27/18. Sepsis. UTI. Pancytopenia. Hypothyroid. Hyponatremia. Alcoholism. Patient weak. Patient wanting to go to a [facility]. instructional services specialist to plan [facility]. . 10/28/18. Sepsis. UTI. Pancytopenia. Hypothyroid. Alcoholism. Patient not voiding CAT scan ordered. Bladder scan not showing much urine in bladder. . 10/29/18. Sepsis better. UTI resolved. Pancytopenia improving. Alcoholism. Collazo catheter working. Hyponatremia. Patient willing to go to a [facility]. . 11/01/18. Sepsis better. UTI resolved. Pancytopenia improving. Alcoholism. Tobaccoism. Patient has trouble moving around. Patient has swelling of the legs and ascites in the abdomen. . 11/02/18. Sepsis. UTI. Pancytopenia. Alcoholism. Tobaccoism. Weakness. Confusion Clinical Quality Measures Admission Status Admission Dx Pancytopenia. Debility. Hypothermia. Hypomagnesemia. Hypophosphatemia. Alcoholism. Tobacco usage. Hypothyroid. DVT/VTE Risk/Contraindication: Risk Factor Score Per Nursin RFS Level Per Nursing on Admit: 4+=Very High Contraindications-Pharm: Other *list below* ADEN HERNANDEZ DO Nov 02, 2018 08:06
[2018-11-02] MEDS: SPIRONOLACTONE 25 MG (ALDACTONE) TAB PO SCH ×2 (08:43→21:56)
[2018-11-02] MEDS: PANTOPRAZOLE 40 MG (PROTONIX) TAB PO SCH (08:43)
--- NOTE | 2018-11-02 09:51 | Occ Therapy Progress Note ---
Therapy Progress Note Pt refused therapy. Pt appears to have some confusion, soft voice and slurred speech. When asked if pt needed anything he stated that he wanted a gun then stated a rope. Pt then stated that his mouth was dry, PERERA checked with nrsg if pt was allowed liquids before procedure, nrsg okayed. Pt able to hold large cup and bring to mouth, SOA after exertion. PERERA left room, all needs met in room, call light/phone in reach. 1-ref LORI OVIEDO Nov 02, 2018 09:51
[2018-11-02] MEDS ORDERED: LIDOCAINE UROJET 2% GEL 10 ML PKG ONE ×2 (10:04→14:39)
--- NOTE | 2018-11-02 11:10 | NUR ---
NOTE THAT DR MONTEIRO DID BEDSIDE CYSTO AND HE LEFT THE BALLESTEROS CATHETER OUT -- DR WILLSON REQUEST THAT PT BE WATCHED AND TO BLADDER SCAN NEEDED -- AND IF PT HAS NOT REQUESTED OR AFTER 3 HRS AND HE IS NOT URINATING TO CALL HIM AT HIS OFFICE (MAY NEED TO PUT BALLESTEROS CATHETER BACK IN -- HE ALSO QUESTIONED PT'S EDEMA -- WILL CALL AND ADVISE DR HERNANDEZ
--- NOTE | 2018-11-02 11:24 | NUR ---
CM/SS spoke with Diandra at [facility] and they are not willing to accept the patient at this time.
[2018-11-02] MEDS ORDERED: FUROSEMIDE 20 MG (LASIX) TAB PO SCH (12:00)
--- NOTE | 2018-11-02 12:02 | NUR ---
PALLIATIVE CARE RN in to see the patient after workroom conversations about POC and difficulty finding a placement for him post discharge. Conversation led to Hospice. After reviewing labs, it did not appear that he would qualify. However, after visualizing the patient he does appear to be more appropriate than first believed. Spoke with the patient and he agreed to talk with them. Called and spoke with Sophia regarding my conversation with the patient. He has approved the referral for hospice to do education and see if patient would even qualify for hospice benefit. I then talked to him about his distended firm abdomen and edematous legs which are very painful. He asked for an order for Lasix 20 mg daily start now to be entered. I did this and then told his nurse. I have asked for [facility] to come to do education with the patient.
--- NOTE | 2018-11-02 14:31 | Physical Therapy Daily Note ---
PT Daily Note-Current Subjective Patient agrees to PT. Pain Numeric Pain Scale: 8 Location: Right, Left Location Body Site: Thigh Pain Description: Chronic Mental Status Patient Orientation: Person, Time, Situation Attachments: Oxygen Transfers Therapy Code Descriptions/Definitions Functional [place] Measure: 0=Not Assessed/NA 4=Minimal Assistance 1=Total Assistance 5=Supervision or Setup 2=Maximal Assistance 6=Modified [place] 3=Moderate Assistance 7=Complete [place] Therapy Quality Codes: 6 Independent with activity with or without an assistive device 5 Patient requires set up or clean up by helper. Patient completes activity by themselves 4 Supervision or touching assist (CGA). Haddock provide cues , steadying assist 3 The helper provides less than half the effort to complete the activity 2 The helper provides more than half the effort to complete the activity 1 Dependent. The helper does all the effort to complete an activity 7 Patient refused to complete or attempt activity 9 The patient did not perform the activity before the current illness or injury 88 Not attempted due to Medical conditions or safety concerns Transfers (B, C, W/C) (FIM): 1 Scootin Rollin Supine to/from Sit: 3 Sit to/from Stand: 1 dependent assist x 2 with sit to stand and with side stepping to right with PT advancing right LE with steps Weight Bearing Right Lower Extremity: Right Full Weight Bearing Left Lower Extremity: Left Full Weight Bearing Assessment Patient tolerates minimal activity and returned to bed with needs met. PT Short Term Goals Short Term Goals Transfers (B,C,W/C) (FIM): 4 PT Homogenizer Operator Goals Senior Living Goals PT Senior Living Goals Time Frame: Oct 30, 2018 Transfers (B,C,W/C) (FIM): 5 Gait (FIM): 1 Gait distance (FIM): 1=up to 49 ft Distance: 10' Gait Level of Assist: 4 Gait Assistive Device: FWW PT Plan Treatment/Plan Treatment Plan: Continue Plan of Care Treatment Plan: Bed Mobility, Education, Functional Activity [place], Functional Strength, Gait, Safety, Therapeutic Exercise, Transfers Treatment Duration: Oct 30, 2018 Frequency: 6 times per week Estimated Hrs Per Day: .5 hour per day Patient and/or Family Agrees t: Yes Time/GCodes Time In: 1355 Time Out: 1405 Total Billed Treatment Time: 10 Total Billed Treatment 1 visit FA 10 min PT/OT Therapy GCodes Therapy Functional Limitation: Physical Therapy Test(s)/Tool used to determine: Level of Assistance Scale Functional Limitation-Current Charge Code: MOBCUR Modifier: CK Functional Limitation-Goal Charge Code: MOBGOAL Modifier: BRENDEN STEVENSON PT Nov 02, 2018 14:31
--- NOTE | 2018-11-02 14:38 | NUR ---
NOTE THAT PT VOIDED 50 NK URINE AFTER GETTING 20 OF LASIX PO, PT WAS BLADDER SCANNED AND HAD 439ML IN -- DR MONTEIRO WAS CALLED AND NEW ORDERS - BALLESTEROS CTHTER TO Catherine , FLOMAX CHANGED TO BID AND URECHOLINE AC HS PO
--- NOTE | 2018-11-02 15:22 | NUR ---
CM/SS information sent to [facility], he will look at information and see the patient on 11/03/18.
[2018-11-02 16:00] VITALS: BP 110/71
[2018-11-02] MEDS: BETHANECHOL 10 MG (URECHOLINE) TAB PO SCH ×2 (16:13→21:56)
--- NOTE | 2018-11-02 20:10 | NUR ---
PT REFUSING TO ALLOW THIS RN TO ASSESS HIS FEET & HEELS AT TIME OF SHIFT ASSESSMENT.
--- NOTE | 2018-11-02 21:24 | OPERATIVE REPORT ---
DATE OF SERVICE: 11/02/2018 PREOPERATIVE DIAGNOSIS: Urinary retention. POSTOPERATIVE DIAGNOSIS: Urinary retention. OPERATION PERFORMED: Cystoscopy. SURGEON: Reza Monteiro MD. ANESTHESIA: Local. COMPLICATIONS: None. DESCRIPTION OF PROCEDURE: With the patient in supine position in his bed after removing the Collazo catheter, genitalia were prepped and draped in the usual sterile fashion. Urethra was infiltrated with lidocaine jelly. Penile clamp was applied. This was then removed and a flexible cystoscope was introduced under vision. The anterior urethra was normal. The prostate was very small, nonobstructing. Bladder neck was open. Bladder revealed very mild trabeculations, no foreign body or bladder tumor visualized. No cystitis. Ureteric orifices were normal in shape, size and configuration with clear efflux. The cystoscopy was confirmed in an antegrade fashion and the cystoscope was removed. The patient tolerated the procedure and anesthesia well and remained in his bed in stable condition. PLAN: Trial of voiding and manage accordingly. It was noted that the patient has edema in his both legs all the way up to the belly and the scrotal area. Testes are down the scrotum and phallus adequate with meatus. Rectal exam deferred to the nurse to check with Dr. Sewell and/or Dr. Cortes regarding the edema. Job ID: [id number] DocumentID: [id number] Dictated Date: 11/02/2018 11:01:46 Electrical Construction Project Manager Date: 11/02/2018 18:33:37 Dictated By: REZA MONTEIRO MD
[2018-11-02 21:40] VITALS: BP 124/76
[2018-11-02] MEDS: TAMSULOSIN 0.4 MG (FLOMAX) CAP PO SCH (21:56)
[2018-11-03] VITALS: BP 110/58
[2018-11-03] MEDS: RT-ALBUTEROL/IPRATROPIUM 3 ML (DUONEB) VIAL INH SCH ×2 (01:52→06:35)
[2018-11-03 06:08] LABS: HEMOGLOBIN 7.1 G/DL (13.3-17.7); MEAN PLATELET VOLUME 11.4 FL (7.4-10.4); RED BLOOD COUNT 2.17 10^6/uL (4.35-5.85); RED CELL DISTRIBUTION WIDTH 15.7 % (10.0-14.5); WHITE BLOOD COUNT 4.6 10^3/uL (4.3-11.0)
[2018-11-03] MEDS: THIAMINE 100 MG (VITAMIN B-1) TAB PO SCH (06:33)
[2018-11-03] MEDS: LEVOTHYROXINE 50 MCG (LEVOTHROID) TAB PO SCH (06:33)
[2018-11-03] MEDS: MULTIVIT W/MINERALS TAB (THERAGRAN M) PO SCH (06:33)
[2018-11-03] MEDS: FOLIC ACID 1 MG TAB PO SCH (06:34)
[2018-11-03] MEDS: BETHANECHOL 10 MG (URECHOLINE) TAB PO SCH ×4 (06:34→20:32)
[2018-11-03 06:35] LABS: ALANINE AMINOTRANSFERASE 36 U/L (0-55); ALBUMIN 2.5 GM/DL (3.2-4.5); ALKALINE PHOSPHATASE 117 U/L (40-136); BILIRUBIN,TOTAL 0.7 MG/DL (0.1-1.0); BUN/CREATININE RATIO 18; CALCIUM 7.3 MG/DL (8.5-10.1); CARBON DIOXIDE 21 MMOL/L (21-32); CHLORIDE 97 MMOL/L (98-107); CREATININE SERUM 0.62 MG/DL (0.60-1.30); GFR ESTIMATED > 60; GLUCOSE 93 MG/DL (70-105); POTASSIUM 3.3 MMOL/L (3.6-5.0); SODIUM 128 MMOL/L (135-145); TOTAL PROTEIN 4.1 GM/DL (6.4-8.2)
--- NOTE | 2018-11-03 07:30 | Progress Note-Urology ---
Progress Note-Urology Progress Notes/Assess & Plan Progress/Assessment & Plan UNABLE TO VID YESTERDAY AND BALLESTEROS REINSERTED. FLOMAX INCREASED TO BID AND URECHOLINE STARTED AT 10MG AC & HS. Final Diagnosis URINE RETENTION ELDA MONTEIRO MD Nov 03, 2018 07:30
[2018-11-03 08:00] VITALS: BP 101/68
[2018-11-03] MEDS ORDERED: KCL 20 MEQ TAB (K-DUR) PO ONE (08:00)
--- NOTE | 2018-11-03 08:04 | Progress Note (SOAP) ---
Subjective Time Seen by a Provider: 08:00 Subjective/Events-last exam Patient answering questions appropriately. No residential will accept him at this time. Patient has swelling of lower extremities. Abdomen ascites. Albumin 2.5 Objective Exam Vital Signs Date Time Temp Pulse Resp B/P (MAP) Pulse Ox O2 Delivery O2 Flow Rate FiO2 11/03/18 06:36 92 Nasal Cannula 2.00 11/03/18 01:52 92 Nasal Cannula 2.00 11/02/18 21:49 Nasal Cannula 2.00 11/02/18 21:40 97.9 86 20 124/76 (92) 98 High Flow N/C 2.50 11/02/18 19:00 Nasal Cannula 2.00 11/02/18 18:45 89 Nasal Cannula 2.00 11/02/18 16:00 98.1 80 16 110/71 (84) 97 High Flow N/C 2.50 11/02/18 14:13 95 Nasal Cannula 2.00 11/02/18 08:00 97.8 77 14 94/61 (72) 97 High Flow N/C 2.50 11/02/18 08:00 Nasal Cannula 2.00 I & O 11/03/18 07:00 Intake Total 1260 ml Output Total 640 ml Balance 620 ml Capillary Refill : Less Than 3 Seconds General Appearance: No Apparent Distress, WD/WN HEENT: Normal ENT Inspection Neck: Full Range of Motion Respiratory: No Accessory Muscle Use, No Respiratory Distress, Wheezing Cardiovascular: Regular Rate, Rhythm, No Murmur Gastrointestinal: other (Ascites) Extremity: Pedal Edema Results Lab Laboratory Tests 11/03/18 05:20 Laboratory Tests 11/03/18 05:20: White Blood Count 4.6, Red Blood Count 2.17L, Hemoglobin 7.1L, Hematocrit 21L, Mean Corpuscular Volume 95, Mean Corpuscular Hemoglobin 33, Mean Corpuscular Hemoglobin Concent 35, Red Cell Distribution Width 15.7H, Platelet Count 124L, Mean Platelet Volume 11.4H, Sodium Level 128L, Potassium Level 3.3L, Chloride Level 97L, Carbon Dioxide Level 21, Anion Gap 10, Blood Urea Nitrogen 11, Creatinine 0.62, Estimat Glomerular Filtration Rate > 60, BUN/Creatinine Ratio 18, Glucose Level 93, Calcium Level 7.3L, Corrected Calcium 8.5, Total Bilirubin 0.7, Aspartate Amino Transf (AST/SGOT) 46H, Alanine Aminotransferase ( ALT/SGPT) 36, Alkaline Phosphatase 117, Total Protein 4.1L, Albumin 2.5L Microbiology 10/20/18 Blood Culture - Final, Complete No growth 10/20/18 MRSA Screen - Final, Complete MRSA not isolated 10/27/18 Urine Culture - Final, Complete NO GROWTH Assessment/Plan Assessment/Plan Assess & Plan/Chief Complaint Sepsis. UTI. Chronic liver disease. Alcoholism. Hypotension. Pancytopenia. Anemia. Hypothyroid. Weakness.. . 10/25/18. Sepsis. UTI. Hyponatremia. Elevated liver tests. UTI due to enterococcus bacillus. Acute respiratory distress. Hypothyroid. Weakness. Alcoholism. Malnutrition.. . . 10/27/18. Sepsis. UTI. Pancytopenia. Hypothyroid. Hyponatremia. Alcoholism. Patient weak. Patient wanting to go to a residential. director of medical staff services to plan for medical [facility]. . 10/28/18. Sepsis. UTI. Pancytopenia. Hypothyroid. Alcoholism. Patient not voiding CAT scan ordered. Bladder scan not showing much urine in bladder. . 10/29/18. Sepsis better. UTI resolved. Pancytopenia improving. Alcoholism. Collazo catheter working. Hyponatremia. Patient willing to go to a residential. . 11/01/18. Sepsis better. UTI resolved. Pancytopenia improving. Alcoholism. Tobaccoism. Patient has trouble moving around. Patient has swelling of the legs and ascites in the abdomen. . 11/02/18. Sepsis. UTI. Pancytopenia. Alcoholism. Tobaccoism. Weakness. Confusion.. . 11/03/18. Sepsis. UTI better. Pancytopenia. Alcoholism. Tobaccoism. Wheezing. Weakness. Patient not confused today.. Urinary retention. Pretibial edema Clinical Quality Measures Admission Status Admission Dx Pancytopenia. Debility. Hypothermia. Hypomagnesemia. Hypophosphatemia. Alcoholism. Tobacco usage. Hypothyroid. DVT/VTE Risk/Contraindication: Risk Factor Score Per Nursin RFS Level Per Nursing on Admit: 4+=Very High Contraindications-Pharm: Other *list below* ADEN HERNANDEZ DO Nov 03, 2018 08:04
[2018-11-03] MEDS ORDERED: FUROSEMIDE 20 MG (LASIX) TAB PO SCH (09:00)
[2018-11-03] MEDS: PANTOPRAZOLE 40 MG (PROTONIX) TAB PO SCH (09:01)
[2018-11-03] MEDS: TAMSULOSIN 0.4 MG (FLOMAX) CAP PO SCH ×2 (09:02→20:32)
[2018-11-03] MEDS: SPIRONOLACTONE 25 MG (ALDACTONE) TAB PO SCH ×2 (09:02→20:32)
--- NOTE | 2018-11-03 09:04 | Diagnostic Imaging Report ---
INDICATION: Wheezing. EXAMINATION: PA and lateral chest. FINDINGS: Heart size and pulmonary vascularity are normal. There is a small left pleural effusion. There are no infiltrates. IMPRESSION: Small left pleural effusion. Dictated by: Dictated on workstation # [id number]
--- NOTE | 2018-11-03 09:09 | Occupational Ther Daily Note ---
OT Current Status-Daily Note Subjective Pt alert, lying in bed. Pt agrees to therapy. No c/o pain at this time. Mental Status/Objective Patient Orientation: Person, Place, Time, Situation Therapy Code Descriptions/Definitions Functional [place] Measure: 0=Not Assessed/NA 4=Minimal Assistance 1=Total Assistance 5=Supervision or Setup 2=Maximal Assistance 6=Modified [place] 3=Moderate Assistance 7=Complete [place] Other Treatment PERERA encouraged pt to sit on EOB to complete grooming and UE exercises. Pt stated that sitting on EOB would be rough and would rather do grooming and exercises lying down. After set up, pt is able to take out top dentures and brush with toothbrush and water. Pt takes increased time to complete task due to decreased activity tolerance. Pt complete UE exercises 2 sets 10 reps. SOA with exercise. Pt able to complete B shldr abd/add without difficulty. B shldr flexion increased difficulty to complete, increased SOA and quick to fatigue. After therapy, nrsg in room, pt lying in bed with call light/phone in reach. All needs met in room. OT Short Term Goals Short Term Goals Time Frame: Oct 28, 2018 Eating(FIM): 5 Grooming(FIM): 5 Bathing(FIM): 4 Upper Body Dressing(FIM): 4 Lower Body Dressing(FIM): 3 Toileting(FIM): 3 Transfers (B,C,W/C) (FIM): 4 Toilet/Commode Transfer(FIM): 4 Shower Transfer(FIM): 3 Additional Short Term Goals: 1-Demonstrate ADL Tasks, 2-Verbalize Understanding , 3-ImproveStrength/Beverly 1=Demonstrate adherence to instructed precautions during ADL tasks. 2=Patient will verbalize/demonstrate understanding of assistive devices/ modifications for ADL. 3=Patient will improve strength/tolerance for activity to enable patient to perform ADL's. OT Quartz Miner Goals Quartz Miner Goals Time Frame: Nov 04, 2018 Eating (FIM): 6 Grooming(FIM): 6 Bathing(FIM): 5 Upper Body Dressing(FIM): 5 Lower Body Dressing(FIM): 5 Toileting(FIM): 6 Transfers (B,C,W/C) (FIM): 6 Toilet/Commode Transfer(FIM): 6 Shower Transfer(FIM): 5 Additional Goals: 1-Demonstrate ADL Tasks, 2-Verbalize Understanding, 3- ImproveStrength/Beverly 1=Demonstrate adherence to instructed precautions during ADL tasks. 2=Patient will verbalize/demonstrate understanding of assistive devices/ modifications for ADL. 3=Patient will improve strength/tolerance for activity to enable patient to perform ADL's. OT Education/Plan Discharge Recommendations Plan/Recommendations: Continue POC Treatment Plan/Plan of Care Patient would benefit from OT for education, treatment and training to promote independence in ADL's, mobility, safety and/or upper extremity function for ADL' s. Plan of Care: ADL Retraining, Functional Mobility, UE Funct Exercise/Act Treatment Duration: Nov 04, 2018 Frequency: 5 times per week Estimated Hrs Per Day: .25 hour per day Agreement: Yes Rehab Potential: Fair Time/GCodes Start Time: 08:40 Stop Time: 09:03 Total Time Billed (hr/min): 23 Billed Treatment Time 1 visit-FA 1 (15 min) EX 1 (8 min) PT/OT Therapy GCodes Therapy Functional Limitation: Physical Therapy Test(s)/Tool used to determine: Level of Assistance Scale Functional Limitation-Current Charge Code: MOBCUR Modifier: CK Functional Limitation-Goal Charge Code: MOBGOAL Modifier: LORI GOMES Nov 03, 2018 09:09
--- NOTE | 2018-11-03 10:56 | NUR ---
PEG/[facility]EN[facility] Pain[facility] from [facility] was here to see patient. He will let us know about acceptance.
[2018-11-03] MEDS: RT-ALBUTEROL SULF 2.5 MG/3 ML PRE-MIX VIAL INH SCH ×3 (10:57→19:08)
--- NOTE | 2018-11-03 11:01 | NUR ---
BNP AND CXR RESULTS CALLED TO DR HERNANDEZ. NEW ORDERS RECEIVED FOR ADDITIONAL DOSE OF LASIX AT 1400 TODAY.
[2018-11-03] MEDS ORDERED: FUROSEMIDE 40 MG/4 ML INJ (LASIX) IVP NR (14:00)
--- NOTE | 2018-11-03 14:47 | Physical Therapy Progress Note ---
Therapy Progress Note Pt refused PT tx this afternoon. Pt advised was accepted to [facility] ([facility] tomorrow and does not feel that he needs PT today. Benefits of PT were explained. Pt resting in bed with all needs met. 1 visit, no tx rendered UZAIR CHAIDEZ PTA Nov 03, 2018 14:46
--- NOTE | 2018-11-03 14:52 | NUR ---
Palliative Care RN in to see patient to discuss the POC discharge option presented to him this morning for [facility]. He has thought it over and verbalizes some fear r/t going "all the way to [place]". I tried to put his concerns to rest. He would like to talk to Dr. Cortes in the morning and then says he will go over in the afternoon.
[2018-11-03 16:00] VITALS: BP 96/57
[2018-11-04 00:32] VITALS: BP 91/56
[2018-11-04 04:38] LABS: MEAN PLATELET VOLUME 10.7 FL (7.4-10.4); RED BLOOD COUNT 2.13 10^6/uL (4.35-5.85); WHITE BLOOD COUNT 4.7 10^3/uL (4.3-11.0)
[2018-11-04 05:08] LABS: BUN/CREATININE RATIO 16; CALCIUM 7.3 MG/DL (8.5-10.1); CARBON DIOXIDE 26 MMOL/L (21-32); CHLORIDE 93 MMOL/L (98-107); CREATININE SERUM 0.61 MG/DL (0.60-1.30); GFR ESTIMATED > 60; GLUCOSE 82 MG/DL (70-105); POTASSIUM 3.5 MMOL/L (3.6-5.0); SODIUM 129 MMOL/L (135-145)
[2018-11-04] MEDS: FOLIC ACID 1 MG TAB PO SCH (06:25)
[2018-11-04] MEDS: LEVOTHYROXINE 50 MCG (LEVOTHROID) TAB PO SCH (06:25)
[2018-11-04] MEDS: THIAMINE 100 MG (VITAMIN B-1) TAB PO SCH (06:25)
[2018-11-04] MEDS: MULTIVIT W/MINERALS TAB (THERAGRAN M) PO SCH (06:25)
[2018-11-04] MEDS: BETHANECHOL 10 MG (URECHOLINE) TAB PO SCH (06:25)
[2018-11-04] MEDS: RT-ALBUTEROL SULF 2.5 MG/3 ML PRE-MIX VIAL INH SCH (07:22)
--- NOTE | 2018-11-04 07:46 | Progress Note (SOAP) ---
Subjective Time Seen by a Provider: 07:42 Subjective/Events-last exam Patient lost 11 pounds with IV Lasix. Patient anemic put on ferrous sulfate. Patient wants to go to [facility] in [place] This is where patient needs to be. Collazo catheter removed. Patient alert this morning. Patient has no confusion Objective Exam Vital Signs Date Time Temp Pulse Resp B/P (MAP) Pulse Ox O2 Delivery O2 Flow Rate FiO2 11/04/18 07:24 94 Nasal Cannula 2.00 11/04/18 00:32 98.4 81 18 91/56 (68) 93 Nasal Cannula 2.00 11/03/18 21:00 Nasal Cannula 2.00 11/03/18 19:08 95 Nasal Cannula 2.00 11/03/18 16:00 96.1 82 18 96/57 (70) 93 Nasal Cannula 2.00 11/03/18 14:11 93 Nasal Cannula 2.00 11/03/18 10:57 93 Nasal Cannula 2.00 11/03/18 09:36 Nasal Cannula 2.00 11/03/18 08:00 98.0 81 20 101/68 (79) 96 Nasal Cannula 2.50 I & O 11/04/18 07:00 Intake Total 1860 ml Output Total 5050 ml Balance -3190 ml Capillary Refill : Less Than 3 Seconds General Appearance: No Apparent Distress, WD/WN HEENT: Normal ENT Inspection Neck: Full Range of Motion Respiratory: Lungs Clear, Normal Breath Sounds, No Accessory Muscle Use, No Respiratory Distress Cardiovascular: Regular Rate, Rhythm, No Murmur Gastrointestinal: other (Ascites) Results Lab Laboratory Tests 11/04/18 04:15 Laboratory Tests 11/04/18 04:15: White Blood Count 4.7, Red Blood Count 2.13L, Hemoglobin 7.0L, Hematocrit 20*L, Mean Corpuscular Volume 94, Mean Corpuscular Hemoglobin 33, Mean Corpuscular Hemoglobin Concent 35, Red Cell Distribution Width 16.0H, Platelet Count 132, Mean Platelet Volume 10.7H, Sodium Level 129L, Potassium Level 3.5L, Chloride Level 93L, Carbon Dioxide Level 26, Anion Gap 10, Blood Urea Nitrogen 10, Creatinine 0.61, Estimat Glomerular Filtration Rate > 60, BUN/Creatinine Ratio 16, Glucose Level 82, Calcium Level 7.3L Microbiology 10/20/18 Blood Culture - Final, Complete No growth 10/20/18 MRSA Screen - Final, Complete MRSA not isolated 10/27/18 Urine Culture - Final, Complete NO GROWTH Assessment/Plan Assessment/Plan Assess & Plan/Chief Complaint Sepsis. UTI. Chronic liver disease. Alcoholism. Hypotension. Pancytopenia. Anemia. Hypothyroid. Weakness.. . 10/25/18. Sepsis. UTI. Hyponatremia. Elevated liver tests. UTI due to enterococcus bacillus. Acute respiratory distress. Hypothyroid. Weakness. Alcoholism. Malnutrition.. . . 10/27/18. Sepsis. UTI. Pancytopenia. Hypothyroid. Hyponatremia. Alcoholism. Patient weak. Patient wanting to go to a fci. senior director creative services to [facility]. . 10/28/18. Sepsis. UTI. Pancytopenia. Hypothyroid. Alcoholism. Patient not voiding CAT scan ordered. Bladder scan not showing much urine in bladder. . 10/29/18. Sepsis better. UTI resolved. Pancytopenia improving. Alcoholism. Collazo catheter working. Hyponatremia. Patient willing to go to a fci. . 11/01/18. Sepsis better. UTI resolved. Pancytopenia improving. Alcoholism. Tobaccoism. Patient has trouble moving around. Patient has swelling of the legs and ascites in the abdomen. . 11/02/18. Sepsis. UTI. Pancytopenia. Alcoholism. Tobaccoism. Weakness. Confusion.. . 11/03/18. Sepsis. UTI better. Pancytopenia. Alcoholism. Tobaccoism. Wheezing. Weakness. Patient not confused today.. Urinary retention. Pretibial edema. . 11/04/18. Sepsis resolved. UTI resolved. Pancytopenia improving. Alcoholism. Cirrhosis. Pretibial edema better. Patient lost 11 pounds yesterday. Urinary retention. Urologist working out at 3 Anemia put on ferrous sulfate Clinical Quality Measures Admission Status Admission Dx Pancytopenia. Debility. Hypothermia. Hypomagnesemia. Hypophosphatemia. Alcoholism. Tobacco usage. Hypothyroid. DVT/VTE Risk/Contraindication: Risk Factor Score Per Nursin RFS Level Per Nursing on Admit: 4+=Very High Contraindications-Pharm: Other *list below* ADEN HERNANDEZ DO Nov 04, 2018 07:46
[2018-11-04 08:04] VITALS: BP 100/64
[2018-11-04] MEDS: SPIRONOLACTONE 25 MG (ALDACTONE) TAB PO SCH (08:43)
[2018-11-04] MEDS: PANTOPRAZOLE 40 MG (PROTONIX) TAB PO SCH (08:43)
--- NOTE | 2018-11-04 08:43 | NUR ---
CM/SS discussed [facility] with patient and he feels that is his best option at this time. 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
[2018-11-04] MEDS: TAMSULOSIN 0.4 MG (FLOMAX) CAP PO SCH (08:44)
[2018-11-04] MEDS ORDERED: FUROSEMIDE 40 MG/4 ML INJ (LASIX) IVP SCH (09:00)
--- NOTE | 2018-11-04 09:42 | Physical Therapy Progress Note ---
Therapy Progress Note Patient declined PT on this date stating, "I'm going to another hospital." PT to dismiss patient from services at this time due to transfer. 1 ref BRENDEN AUGUSTIN PT Nov 04, 2018 09:42
--- NOTE | 2018-11-04 10:01 | NUR ---
CM/SS [facility] has necessary paperwork and will transport this day.
[2018-11-04 11:17] VITALS: BP 100/64
[2018-11-04] MEDS ORDERED: FERROUS SULF 325 MG (IRON) TAB PO SCH (12:00)
--- NOTE | 2018-11-05 07:38 | Discharge Summary ---
Diagnosis/Chief Complaint Date of Admission Oct 20, 2018 at 19:00 Date of Discharge Nov 04, 2018 at 11:17 Discharge Diagnosis Alcohol dependence. Anorexia. Pancytopenia. Hyponatremia. Hypokalemia. Sepsis. Urinary tract infection. Enterococcus faecalis. Urinary retention. Acute respiratory failure. Atelectasis. Dehydration. Hypotension. Hypothyroid. Debility. Confusion. Ascites. Anasarca. Hypoalbuminemia Reason Hospital Visit Patient [place] emergency by [facility]. At home patient unresponsive. Patient has not been eating good. Patient's temperature 90.2 degrees. In the last 2 weeks patient immobile and wheelchair. Patient has history of alcoholism. Blood tests shows pancytopenia. Hypokalemia, hyponatremia, debility. Lactic acid above 2. Has low back pain. Patient told nurse last night that he wants to be a DO NOT RESUSCITATE Discharge Summary Consultations Pulmonology. Urology. Hematology Discharge Physical Examination Allergies: Coded Allergies: No Known Drug Allergies (Unverified , 09/17/12) Vitals & I&Os Vital Signs Date Time Temp Pulse Resp B/P (MAP) Pulse Ox O2 Delivery O2 Flow Rate FiO2 11/04/18 11:17 77 18 100/64 93 Nasal Cannula 2.00 11/04/18 08:04 97.3 Hospital Course Patient transferred to [facility] in [facility] (last 24 hrs) Laboratory Tests 10/20/18 18:00: White Blood Count 2.2L, Red Blood Count 2.11L, Hemoglobin 7.5L, Hematocrit 21L, Mean Corpuscular Volume 99, Mean Corpuscular Hemoglobin 36H, Mean Corpuscular Hemoglobin Concent 36, Red Cell Distribution Width 13.7, Platelet Count 27*L, Mean Platelet Volume 10.1, Neutrophils (%) (Auto) 46, Lymphocytes (%) (Auto) 48H , Monocytes (%) (Auto) 4, Eosinophils (%) (Auto) 1, Basophils (%) (Auto) 1, Neutrophils # (Auto) 1.0L, Lymphocytes # (Auto) 1.1, Monocytes # (Auto) 0.1, Eosinophils # (Auto) 0.0, Basophils # (Auto) 0.0, Prothrombin Time 15.7H, INR Comment 1.3, Activated Partial Thromboplast Time 34, Sodium Level 130L, Potassium Level 3.3L, Chloride Level 88L, Carbon Dioxide Level 25, Anion Gap 17H , Blood Urea Nitrogen 16, Creatinine 0.76, Estimat Glomerular Filtration Rate > 60, BUN/Creatinine Ratio 21, Glucose Level 116H, Calcium Level 7.6L, Corrected Calcium 7.9L, Total Bilirubin 1.9H, Aspartate Amino Transf (AST/SGOT) 49H, Alanine Aminotransferase (ALT/SGPT) 22, Alkaline Phosphatase 92, Ammonia 31, Total Protein 5.3L, Albumin 3.6, Serum Alcohol < 10 10/20/18 18:56: Lactic Acid Level 2.47*H 10/20/18 19:00: Lab Scanned Report Referred Lab Report 10/20/18 20:07: Urine Color AMBERH, Urine Clarity SL CLOUDY, Urine pH 6.5, Urine Specific [place] 1.010L, Urine Protein 1+H, Urine Glucose (UA) NEGATIVE, Urine Ketones 2+ H, Urine Nitrite POSITIVEH, Urine Bilirubin 2+H, Urine Urobilinogen 8H, Urine Leukocyte Esterase 1+H, Urine RBC (Auto) NEGATIVE, Urine RBC NONE, Urine WBC 0-2 , Urine Crystals NONE, Urine Bacteria MODERATEH, Urine Casts NONE, Urine Mucus NEGATIVE, Urine Culture Indicated NO 10/20/18 21:05: Lactic Acid Level 1.73 10/20/18 23:35: White Blood Count 2.3L, Red Blood Count 2.27L, Hemoglobin 8.0L, Hematocrit 23L, Mean Corpuscular Volume 99, Mean Corpuscular Hemoglobin 35H, Mean Corpuscular Hemoglobin Concent 36, Red Cell Distribution Width 13.6, Platelet Count 27*L, Mean Platelet Volume 10.4, Neutrophils (%) (Auto) 60, Lymphocytes (%) (Auto) 35 , Monocytes (%) (Auto) 3, Eosinophils (%) (Auto) 1, Basophils (%) (Auto) 1, Neutrophils # (Auto) 1.4L, Lymphocytes # (Auto) 0.8L, Monocytes # (Auto) 0.1, Eosinophils # (Auto) 0.0, Basophils # (Auto) 0.0, Neutrophils % (Manual) 58, Lymphocytes % (Manual) 37, Monocytes % (Manual) 1, Eosinophils % (Manual) 2, Basophils % (Manual) 0, Band Neutrophils 2, Hypochromasia SLIGHT, Poikilocytosis SLIGHT, Target Cells SLIGHT, Tear Drop Cells SLIGHT, Crenated Cell SLIGHT, Absolute Reticulocyte Count 2L, Percent Reticulocyte Count 0.07L, Prothrombin Time 15.4H, INR Comment 1.2 10/21/18 03:10: White Blood Count 2.1L, Red Blood Count 2.18L, Hemoglobin 7.6L, Hematocrit 22L, Mean Corpuscular Volume 99, Mean Corpuscular Hemoglobin 35H, Mean Corpuscular Hemoglobin Concent 35, Red Cell Distribution Width 13.8, Platelet Count 25*L, Mean Platelet Volume 10.5H, Neutrophils (%) (Auto) 56, Lymphocytes (%) (Auto) 38 , Monocytes (%) (Auto) 4, Eosinophils (%) (Auto) 1, Basophils (%) (Auto) 1, Neutrophils # (Auto) 1.2L, Lymphocytes # (Auto) 0.8L, Monocytes # (Auto) 0.1, Eosinophils # (Auto) 0.0, Basophils # (Auto) 0.0, Sodium Level 130L, Potassium Level 3.9, Chloride Level 93L, Carbon Dioxide Level 21, Anion Gap 16H, Blood Urea Nitrogen 13, Creatinine 0.72, Estimat Glomerular Filtration Rate > 60, BUN/ Creatinine Ratio 18, Glucose Level 84, Calcium Level 7.6L, Corrected Calcium 7.9L, Phosphorus Level 2.0L, Magnesium Level 1.4L, Total Bilirubin 1.7H, Aspartate Amino Transf (AST/SGOT) 43H, Alanine Aminotransferase (ALT/SGPT) 20, Alkaline Phosphatase 100, Total Protein 5.6L, Albumin 3.6 10/21/18 05:30: Lactic Acid Level 1.22 10/21/18 06:36: Ammonia 23, Thyroid Stimulating Hormone (TSH) 65.16H, Free Thyroxine < 0.40L, Free Triiodothyronine <1.00L, Cortisol AM Sample 15.6 10/21/18 07:29: Urine Opiates Screen NEGATIVE, Urine Oxycodone Screen NEGATIVE, Urine Methadone Screen NEGATIVE, Urine Propoxyphene Screen NEGATIVE, Urine Barbiturates Screen NEGATIVE, Ur Tricyclic Antidepressants Screen NEGATIVE, Urine Phencyclidine Screen NEGATIVE, Urine Amphetamines Screen NEGATIVE, Urine Methamphetamines Screen NEGATIVE, Urine Benzodiazepines Screen NEGATIVE, Urine Cocaine Screen NEGATIVE, Urine Cannabinoids Screen NEGATIVE 10/22/18 03:10: White Blood Count 3.1L, Red Blood Count 2.07L, Hemoglobin 7.0L, Hematocrit 20*L , Mean Corpuscular Volume 97, Mean Corpuscular Hemoglobin 34, Mean Corpuscular Hemoglobin Concent 35, Red Cell Distribution Width 13.0, Platelet Count 24*L, Mean Platelet Volume 10.9H, Neutrophils (%) (Auto) 74, Lymphocytes (%) (Auto) 24 , Monocytes (%) (Auto) 3, Eosinophils (%) (Auto) 0, Basophils (%) (Auto) 0, Neutrophils # (Auto) 2.3, Lymphocytes # (Auto) 0.7L, Monocytes # (Auto) 0.1, Eosinophils # (Auto) 0.0, Basophils # (Auto) 0.0, Sodium Level 126L, Potassium Level 4.0, Chloride Level 94L, Carbon Dioxide Level 20L, Anion Gap 12, Blood Urea Nitrogen 10, Creatinine 0.70, Estimat Glomerular Filtration Rate > 60, BUN/ Creatinine Ratio 14, Glucose Level 141H, Calcium Level 7.1L, Corrected Calcium 7.7L, Phosphorus Level 2.9, Magnesium Level 1.4L, Iron Level 169, Total Iron Binding Capacity See Est TIBCH, Unsaturated Iron Binding Capacity 58, Transferrin % Saturation See Est %SatH, Ferritin 1075.5H, Total Bilirubin 1.1H, Aspartate Amino Transf (AST/SGOT) 35H, Alanine Aminotransferase (ALT/SGPT) 17, Alkaline Phosphatase 91, Total Protein 5.0L, Total Protein (PEP) 5.0L, Albumin 3.3, Protein Electrophoresis Pathologist SEE PATH REPORT, Vitamin B12 Level 634 , Folate 3.9L, Copper Level 82, Free Ozone Light Chains, Quant 27.40H, Free Lambda Light Chains, Quant 20.39, Free Ozone/Lambda Light Chain Ratio 1.34 10/23/18 03:12: White Blood Count 4.9, Red Blood Count 3.31L, Hemoglobin 10.8#L, Hematocrit 30L , Mean Corpuscular Volume 89, Mean Corpuscular Hemoglobin 33, Mean Corpuscular Hemoglobin Concent 37H, Red Cell Distribution Width 17.3H, Platelet Count 50L, Mean Platelet Volume 11.4H, Neutrophils (%) (Auto) 77H, Lymphocytes (%) (Auto) 19, Monocytes (%) (Auto) 4, Eosinophils (%) (Auto) 0, Basophils (%) (Auto) 0, Neutrophils # (Auto) 3.8, Lymphocytes # (Auto) 0.9L, Monocytes # (Auto) 0.2, Eosinophils # (Auto) 0.0, Basophils # (Auto) 0.0, Sodium Level 126L, Potassium Level 3.4L, Chloride Level 95L, Carbon Dioxide Level 17L, Anion Gap 14, Blood Urea Nitrogen 8, Creatinine 0.73, Estimat Glomerular Filtration Rate > 60, BUN/ Creatinine Ratio 11, Glucose Level 164H, Calcium Level 7.4L, Corrected Calcium 7.8L, Phosphorus Level 2.1L, Magnesium Level 1.6L, Total Bilirubin 1.8H, Aspartate Amino Transf (AST/SGOT) 47H, Alanine Aminotransferase (ALT/SGPT) 24, Alkaline Phosphatase 101, Total Protein 5.6L, Albumin 3.5 10/23/18 20:18: Vancomycin Level Trough 28.8*H 10/24/18 03:55: White Blood Count 5.7, Red Blood Count 2.91L, Hemoglobin 9.5L, Hematocrit 26L, Mean Corpuscular Volume 89, Mean Corpuscular Hemoglobin 33, Mean Corpuscular Hemoglobin Concent 37H, Red Cell Distribution Width 16.6H, Platelet Count 54L, Mean Platelet Volume 11.1H, Neutrophils (%) (Auto) 73, Lymphocytes (%) (Auto) 21 , Monocytes (%) (Auto) 6, Eosinophils (%) (Auto) 0, Basophils (%) (Auto) 0, Neutrophils # (Auto) 4.2, Lymphocytes # (Auto) 1.2, Monocytes # (Auto) 0.3, Eosinophils # (Auto) 0.0, Basophils # (Auto) 0.0, Sodium Level 127L, Potassium Level 3.8, Chloride Level 99, Carbon Dioxide Level 17L, Anion Gap 11, Blood Urea Nitrogen 8, Creatinine 0.74, Estimat Glomerular Filtration Rate > 60, BUN/ Creatinine Ratio 11, Glucose Level 143H, Calcium Level 7.0L, Corrected Calcium 7.8L, Phosphorus Level 2.5, Magnesium Level 2.0, Total Bilirubin 0.9, Aspartate Amino Transf (AST/SGOT) 86H, Alanine Aminotransferase (ALT/SGPT) 40, Alkaline Phosphatase 102, Total Protein 4.8L, Albumin 3.0L 10/24/18 08:17: Vancomycin Level Trough 21.1H 10/25/18 03:25: White Blood Count 7.7, Red Blood Count 2.99L, Hemoglobin 9.8L, Hematocrit 27L, Mean Corpuscular Volume 89, Mean Corpuscular Hemoglobin 33, Mean Corpuscular Hemoglobin Concent 37H, Red Cell Distribution Width 16.6H, Platelet Count 59L, Mean Platelet Volume 10.0, Neutrophils (%) (Auto) 72, Lymphocytes (%) (Auto) 19 , Monocytes (%) (Auto) 9, Eosinophils (%) (Auto) 0, Basophils (%) (Auto) 0, Neutrophils # (Auto) 5.6, Lymphocytes # (Auto) 1.5, Monocytes # (Auto) 0.7, Eosinophils # (Auto) 0.0, Basophils # (Auto) 0.0, Sodium Level 126L, Potassium Level 3.6, Chloride Level 98, Carbon Dioxide Level 16L, Anion Gap 12, Blood Urea Nitrogen 9, Creatinine 0.74, Estimat Glomerular Filtration Rate > 60, BUN/ Creatinine Ratio 12, Glucose Level 144H, Calcium Level 7.4L, Corrected Calcium 8.0L, Phosphorus Level 2.3, Magnesium Level 1.8, Total Bilirubin 1.2H, Aspartate Amino Transf (AST/SGOT) 110H, Alanine Aminotransferase (ALT/SGPT) 61H , Alkaline Phosphatase 115, Total Protein 5.0L, Albumin 3.2 10/25/18 08:50: B-Type Natriuretic Peptide 417.0H, Vitamin B12 Level 773 10/26/18 03:50: White Blood Count 8.4, Red Blood Count 2.87L, Hemoglobin 9.4L, Hematocrit 26L, Mean Corpuscular Volume 90, Mean Corpuscular Hemoglobin 33, Mean Corpuscular Hemoglobin Concent 36, Red Cell Distribution Width 16.3H, Platelet Count 59L, Mean Platelet Volume 10.8H, Neutrophils (%) (Auto) 78H, Lymphocytes (%) (Auto) 12, Monocytes (%) (Auto) 11, Eosinophils (%) (Auto) 0, Basophils (%) (Auto) 0, Neutrophils # (Auto) 6.5, Lymphocytes # (Auto) 1.0, Monocytes # (Auto) 0.9, Eosinophils # (Auto) 0.0, Basophils # (Auto) 0.0, Neutrophils % (Manual) , Basophilic Stippling , Anisocytosis , Sodium Level 126L, Potassium Level 3.7, Chloride Level 95L, Carbon Dioxide Level 14L, Anion Gap 17H, Blood Urea Nitrogen 11, Creatinine 0.86, Estimat Glomerular Filtration Rate > 60, BUN/ Creatinine Ratio 13, Glucose Level 145H, Calcium Level 7.7L, Corrected Calcium 8.2L, Phosphorus Level 2.6, Magnesium Level 1.5L, Total Bilirubin 0.9, Aspartate Amino Transf (AST/SGOT) 98H, Alanine Aminotransferase (ALT/SGPT) 73H, Alkaline Phosphatase 112, Total Protein 5.3L, Albumin 3.4, Smear Scan YES 10/27/18 06:22: White Blood Count 6.9, Red Blood Count 2.98L, Hemoglobin 9.6L, Hematocrit 27L, Mean Corpuscular Volume 91, Mean Corpuscular Hemoglobin 32, Mean Corpuscular Hemoglobin Concent 35, Red Cell Distribution Width 17.0H, Platelet Count 79L, Mean Platelet Volume 11.1H, Neutrophils (%) (Auto) 72, Lymphocytes (%) (Auto) 19 , Monocytes (%) (Auto) 7, Eosinophils (%) (Auto) 2, Basophils (%) (Auto) 0, Neutrophils # (Auto) 5.0, Lymphocytes # (Auto) 1.3, Monocytes # (Auto) 0.5, Eosinophils # (Auto) 0.1, Basophils # (Auto) 0.0, Sodium Level 129L, Potassium Level 3.4L, Chloride Level 95L, Carbon Dioxide Level 22, Anion Gap 12, Blood Urea Nitrogen 10, Creatinine 0.73, Estimat Glomerular Filtration Rate > 60, BUN/ Creatinine Ratio 14, Glucose Level 70, Calcium Level 7.8L, Corrected Calcium 8.4L, Phosphorus Level 2.6, Magnesium Level 1.8, Total Bilirubin 0.8, Aspartate Amino Transf (AST/SGOT) 115H, Alanine Aminotransferase (ALT/SGPT) 83H, Alkaline Phosphatase 119, Total Protein 5.1L, Albumin 3.2 10/27/18 09:24: Urine Color YELLOW, Urine Clarity CLEAR, Urine pH 6, Urine Specific [place] 1.015L, Urine Protein 2+H, Urine Glucose (UA) NEGATIVE, Urine Ketones NEGATIVE, Urine Nitrite NEGATIVE, Urine Bilirubin 1+H, Urine Urobilinogen 4H, Urine Leukocyte Esterase 1+H, Urine RBC (Auto) 2+H, Urine RBC 10-25H, Urine WBC 2-5, Urine Squamous Epithelial Cells RARE, Urine Crystals NONE, Urine Bacteria TRACE , Urine Casts NONE, Urine Mucus SMALLH, Urine Culture Indicated YES 10/27/18 12:42: Lab Scanned Report Transfusion Reaction Form 10/28/18 06:45: White Blood Count 4.4, Red Blood Count 2.76L, Hemoglobin 9.0L, Hematocrit 26L, Mean Corpuscular Volume 92, Mean Corpuscular Hemoglobin 33, Mean Corpuscular Hemoglobin Concent 35, Red Cell Distribution Width 16.5H, Platelet Count 82L, Mean Platelet Volume 11.0H, Neutrophils (%) (Auto) 73, Lymphocytes (%) (Auto) 19 , Monocytes (%) (Auto) 7, Eosinophils (%) (Auto) 2, Basophils (%) (Auto) 0, Neutrophils # (Auto) 3.2, Lymphocytes # (Auto) 0.8L, Monocytes # (Auto) 0.3, Eosinophils # (Auto) 0.1, Basophils # (Auto) 0.0, Sodium Level 126L, Potassium Level 3.3L, Chloride Level 94L, Carbon Dioxide Level 23, Anion Gap 9, Blood Urea Nitrogen 9, Creatinine 0.69, Estimat Glomerular Filtration Rate > 60, BUN/ Creatinine Ratio 13, Glucose Level 78, Calcium Level 7.4L, Corrected Calcium 8.3L, Phosphorus Level 2.8, Magnesium Level 1.7L, Total Bilirubin 0.7, Aspartate Amino Transf (AST/SGOT) 100H, Alanine Aminotransferase (ALT/SGPT) 74H , Alkaline Phosphatase 125, Total Protein 4.5L, Albumin 2.9L 10/28/18 07:50: Ammonia 19 10/29/18 07:25: White Blood Count 5.1, Red Blood Count 2.66L, Hemoglobin 8.5L, Hematocrit 25L, Mean Corpuscular Volume 93, Mean Corpuscular Hemoglobin 32, Mean Corpuscular Hemoglobin Concent 34, Red Cell Distribution Width 16.6H, Platelet Count 101L, Mean Platelet Volume 11.1H, Neutrophils (%) (Auto) 77H, Lymphocytes (%) (Auto) 16, Monocytes (%) (Auto) 6, Eosinophils (%) (Auto) 1, Basophils (%) (Auto) 0, Neutrophils # (Auto) 3.9, Lymphocytes # (Auto) 0.8L, Monocytes # (Auto) 0.3, Eosinophils # (Auto) 0.1, Basophils # (Auto) 0.0, Sodium Level 125*L, Potassium Level 3.7, Chloride Level 95L, Carbon Dioxide Level 22, Anion Gap 8, Blood Urea Nitrogen 10, Creatinine 0.65, Estimat Glomerular Filtration Rate > 60, BUN/ Creatinine Ratio 15, Glucose Level 86, Calcium Level 7.7L, Corrected Calcium 8.7 , Phosphorus Level 3.4, Magnesium Level 1.6L, Total Bilirubin 0.7, Aspartate Amino Transf (AST/SGOT) 78H, Alanine Aminotransferase (ALT/SGPT) 58H, Alkaline Phosphatase 110, Total Protein 4.4L, Albumin 2.8L, Ammonia 29 10/30/18 06:17: White Blood Count 4.6, Red Blood Count 2.45L, Hemoglobin 7.9L, Hematocrit 23L, Mean Corpuscular Volume 94, Mean Corpuscular Hemoglobin 32, Mean Corpuscular Hemoglobin Concent 35, Red Cell Distribution Width 16.2H, Platelet Count 108L, Mean Platelet Volume 11.7H, Neutrophils (%) (Auto) 80H, Lymphocytes (%) (Auto) 14, Monocytes (%) (Auto) 6, Eosinophils (%) (Auto) 1, Basophils (%) (Auto) 0, Neutrophils # (Auto) 3.7, Lymphocytes # (Auto) 0.7L, Monocytes # (Auto) 0.3, Eosinophils # (Auto) 0.0, Basophils # (Auto) 0.0 10/30/18 06:19: Sodium Level 127L, Potassium Level 3.4L, Chloride Level 97L, Carbon Dioxide Level 20L, Anion Gap 10, Blood Urea Nitrogen 10, Creatinine 0.64, Estimat Glomerular Filtration Rate > 60, BUN/Creatinine Ratio 16, Glucose Level 95, Calcium Level 7.3L, Corrected Calcium 8.3L, Phosphorus Level 3.4, Magnesium Level 1.6L, Total Bilirubin 0.6, Aspartate Amino Transf (AST/SGOT) 67H, Alanine Aminotransferase (ALT/SGPT) 51, Alkaline Phosphatase 118, Total Protein 4.2L, Albumin 2.7L 10/31/18 06:52: Sodium Level 126L, Potassium Level 3.6, Chloride Level 96L, Carbon Dioxide Level 20L, Anion Gap 10, Blood Urea Nitrogen 11, Creatinine 0.64, Estimat Glomerular Filtration Rate > 60, BUN/Creatinine Ratio 17, Glucose Level 97, Calcium Level 7.2L, Corrected Calcium 8.2L, Phosphorus Level 3.3, Magnesium Level 1.4L, Total Bilirubin 0.7, Aspartate Amino Transf (AST/SGOT) 66H, Alanine Aminotransferase (ALT/SGPT) 44, Alkaline Phosphatase 124, Total Protein 4.2L, Albumin 2.8L 10/31/18 07:17: White Blood Count 5.0, Red Blood Count 2.39L, Hemoglobin 7.4L, Hematocrit 22L, Mean Corpuscular Volume 94, Mean Corpuscular Hemoglobin 31, Mean Corpuscular Hemoglobin Concent 33, Red Cell Distribution Width 16.3H, Platelet Count 118L, Mean Platelet Volume 11.2H, Neutrophils (%) (Auto) 75, Lymphocytes (%) (Auto) 16 , Monocytes (%) (Auto) 9, Eosinophils (%) (Auto) 1, Basophils (%) (Auto) 0, Neutrophils # (Auto) 3.7, Lymphocytes # (Auto) 0.8L, Monocytes # (Auto) 0.4, Eosinophils # (Auto) 0.0, Basophils # (Auto) 0.0 11/02/18 05:26: White Blood Count 3.6L, Red Blood Count 2.27L, Hemoglobin 7.4L, Hematocrit 21L, Mean Corpuscular Volume 94, Mean Corpuscular Hemoglobin 33, Mean Corpuscular Hemoglobin Concent 35, Red Cell Distribution Width 15.8H, Platelet Count 135, Mean Platelet Volume 11.0H, Sodium Level 127L, Potassium Level 3.3L, Chloride Level 95L, Carbon Dioxide Level 24, Anion Gap 8, Blood Urea Nitrogen 11, Creatinine 0.60, Estimat Glomerular Filtration Rate > 60, BUN/Creatinine Ratio 18, Glucose Level 75, Calcium Level 7.4L, Corrected Calcium 8.4L, Total Bilirubin 0.9, Aspartate Amino Transf (AST/SGOT) 55H, Alanine Aminotransferase ( ALT/SGPT) 44, Alkaline Phosphatase 107, Total Protein 4.2L, Albumin 2.7L 11/03/18 05:20: White Blood Count 4.6, Red Blood Count 2.17L, Hemoglobin 7.1L, Hematocrit 21L, Mean Corpuscular Volume 95, Mean Corpuscular Hemoglobin 33, Mean Corpuscular Hemoglobin Concent 35, Red Cell Distribution Width 15.7H, Platelet Count 124L, Mean Platelet Volume 11.4H, Sodium Level 128L, Potassium Level 3.3L, Chloride Level 97L, Carbon Dioxide Level 21, Anion Gap 10, Blood Urea Nitrogen 11, Creatinine 0.62, Estimat Glomerular Filtration Rate > 60, BUN/Creatinine Ratio 18, Glucose Level 93, Calcium Level 7.3L, Corrected Calcium 8.5, Total Bilirubin 0.7, Aspartate Amino Transf (AST/SGOT) 46H, Alanine Aminotransferase ( ALT/SGPT) 36, Alkaline Phosphatase 117, Total Protein 4.1L, Albumin 2.5L, B- Type Natriuretic Peptide 116.8H 11/04/18 04:15: White Blood Count 4.7, Red Blood Count 2.13L, Hemoglobin 7.0L, Hematocrit 20*L, Mean Corpuscular Volume 94, Mean Corpuscular Hemoglobin 33, Mean Corpuscular Hemoglobin Concent 35, Red Cell Distribution Width 16.0H, Platelet Count 132, Mean Platelet Volume 10.7H, Sodium Level 129L, Potassium Level 3.5L, Chloride Level 93L, Carbon Dioxide Level 26, Anion Gap 10, Blood Urea Nitrogen 10, Creatinine 0.61, Estimat Glomerular Filtration Rate > 60, BUN/Creatinine Ratio 16, Glucose Level 82, Calcium Level 7.3L Microbiology 10/20/18 Blood Culture - Final, Complete No growth 10/20/18 MRSA Screen - Final, Complete MRSA not isolated 10/27/18 Urine Culture - Final, Complete NO GROWTH Laboratory Tests 10/20/18 18:00 10/20/18 23:35 10/21/18 03:10 10/22/18 03:10 10/23/18 03:12 10/24/18 03:55 10/25/18 03:25 10/26/18 03:50 10/27/18 06:22 10/28/18 06:45 10/29/18 07:25 10/30/18 06:17 10/30/18 06:19 10/31/18 06:52 10/31/18 07:17 11/02/18 05:26 11/03/18 05:20 11/04/18 04:15 Pending Labs Microbiology Date/Time Source Procedure Growth Status 10/20/18 19:05 Peripheral Rt Ac Blood Culture - Final No growth Complete 10/20/18 18:56 Peripheral Rt Hand Blood Culture - Final No growth Complete 10/20/18 21:35 Nasal MRSA Screen - Final MRSA not isolated Complete 10/27/18 09:24 Urine Collazo Cath Urine Culture - Final NO GROWTH Complete 10/20/18 20:07 Urine Straight Cath, In/Out Urine Culture - Final Enterococcus faecalis Complete Laboratory Tests 10/20/18 18:00: White Blood Count 2.2, Red Blood Count 2.11, Hemoglobin 7.5, Hematocrit 21, Mean Corpuscular Volume 99, Mean Corpuscular Hemoglobin 36, Mean Corpuscular Hemoglobin Concent 36, Red Cell Distribution Width 13.7, Platelet Count 27, Mean Platelet Volume 10.1, Neutrophils (%) (Auto) 46, Lymphocytes (%) (Auto) 48 , Monocytes (%) (Auto) 4, Eosinophils (%) (Auto) 1, Basophils (%) (Auto) 1, Neutrophils # (Auto) 1.0, Lymphocytes # (Auto) 1.1, Monocytes # (Auto) 0.1, Eosinophils # (Auto) 0.0, Basophils # (Auto) 0.0, Prothrombin Time 15.7, INR Comment 1.3, Activated Partial Thromboplast Time 34, Sodium Level 130, Potassium Level 3.3, Chloride Level 88, Carbon Dioxide Level 25, Anion Gap 17, Blood Urea Nitrogen 16, Creatinine 0.76, Estimat Glomerular Filtration Rate > 60 , BUN/Creatinine Ratio 21, Glucose Level 116, Calcium Level 7.6, Corrected Calcium 7.9, Total Bilirubin 1.9, Aspartate Amino Transf (AST/SGOT) 49, Alanine Aminotransferase (ALT/SGPT) 22, Alkaline Phosphatase 92, Ammonia 31, Total Protein 5.3, Albumin 3.6, Serum Alcohol < 10 10/20/18 18:56: Lactic Acid Level 2.47 10/20/18 19:00: Lab Scanned Report Referred Lab Report 10/20/18 20:07: Urine Color TAJ, Urine Clarity SL CLOUDY, Urine pH 6.5, Urine Specific [place] 1.010, Urine Protein 1+, Urine Glucose (UA) NEGATIVE, Urine Ketones 2+, Urine Nitrite POSITIVE, Urine Bilirubin 2+, Urine Urobilinogen 8, Urine Leukocyte Esterase 1+, Urine RBC (Auto) NEGATIVE, Urine RBC NONE, Urine WBC 0-2 , Urine Crystals NONE, Urine Bacteria MODERATE, Urine Casts NONE, Urine Mucus NEGATIVE, Urine Culture Indicated NO 10/20/18 21:05: Lactic Acid Level 1.73 10/20/18 23:35: White Blood Count 2.3, Red Blood Count 2.27, Hemoglobin 8.0, Hematocrit 23, Mean Corpuscular Volume 99, Mean Corpuscular Hemoglobin 35, Mean Corpuscular Hemoglobin Concent 36, Red Cell Distribution Width 13.6, Platelet Count 27, Mean Platelet Volume 10.4, Neutrophils (%) (Auto) 60, Lymphocytes (%) (Auto) 35 , Monocytes (%) (Auto) 3, Eosinophils (%) (Auto) 1, Basophils (%) (Auto) 1, Neutrophils # (Auto) 1.4, Lymphocytes # (Auto) 0.8, Monocytes # (Auto) 0.1, Eosinophils # (Auto) 0.0, Basophils # (Auto) 0.0, Neutrophils % (Manual) 58, Lymphocytes % (Manual) 37, Monocytes % (Manual) 1, Eosinophils % (Manual) 2, Basophils % (Manual) 0, Band Neutrophils 2, Hypochromasia SLIGHT, Poikilocytosis SLIGHT, Target Cells SLIGHT, Tear Drop Cells SLIGHT, Crenated Cell SLIGHT, Absolute Reticulocyte Count 2, Percent Reticulocyte Count 0.07, Prothrombin Time 15.4, INR Comment 1.2 10/21/18 03:10: White Blood Count 2.1, Red Blood Count 2.18, Hemoglobin 7.6, Hematocrit 22, Mean Corpuscular Volume 99, Mean Corpuscular Hemoglobin 35, Mean Corpuscular Hemoglobin Concent 35, Red Cell Distribution Width 13.8, Platelet Count 25, Mean Platelet Volume 10.5, Neutrophils (%) (Auto) 56, Lymphocytes (%) (Auto) 38 , Monocytes (%) (Auto) 4, Eosinophils (%) (Auto) 1, Basophils (%) (Auto) 1, Neutrophils # (Auto) 1.2, Lymphocytes # (Auto) 0.8, Monocytes # (Auto) 0.1, Eosinophils # (Auto) 0.0, Basophils # (Auto) 0.0, Sodium Level 130, Potassium Level 3.9, Chloride Level 93, Carbon Dioxide Level 21, Anion Gap 16, Blood Urea Nitrogen 13, Creatinine 0.72, Estimat Glomerular Filtration Rate > 60, BUN/ Creatinine Ratio 18, Glucose Level 84, Calcium Level 7.6, Corrected Calcium 7.9 , Phosphorus Level 2.0, Magnesium Level 1.4, Total Bilirubin 1.7, Aspartate Amino Transf (AST/SGOT) 43, Alanine Aminotransferase (ALT/SGPT) 20, Alkaline Phosphatase 100, Total Protein 5.6, Albumin 3.6 10/21/18 05:30: Lactic Acid Level 1.22 10/21/18 06:36: Ammonia 23, Thyroid Stimulating Hormone (TSH) 65.16, Free Thyroxine < 0.40, Free Triiodothyronine <1.00, Cortisol AM Sample 15.6 10/21/18 07:29: Urine Opiates Screen NEGATIVE, Urine Oxycodone Screen NEGATIVE, Urine Methadone Screen NEGATIVE, Urine Propoxyphene Screen NEGATIVE, Urine Barbiturates Screen NEGATIVE, Ur Tricyclic Antidepressants Screen NEGATIVE, Urine Phencyclidine Screen NEGATIVE, Urine Amphetamines Screen NEGATIVE, Urine Methamphetamines Screen NEGATIVE, Urine Benzodiazepines Screen NEGATIVE, Urine Cocaine Screen NEGATIVE, Urine Cannabinoids Screen NEGATIVE 10/22/18 03:10: White Blood Count 3.1, Red Blood Count 2.07, Hemoglobin 7.0, Hematocrit 20, Mean Corpuscular Volume 97, Mean Corpuscular Hemoglobin 34, Mean Corpuscular Hemoglobin Concent 35, Red Cell Distribution Width 13.0, Platelet Count 24, Mean Platelet Volume 10.9, Neutrophils (%) (Auto) 74, Lymphocytes (%) (Auto) 24 , Monocytes (%) (Auto) 3, Eosinophils (%) (Auto) 0, Basophils (%) (Auto) 0, Neutrophils # (Auto) 2.3, Lymphocytes # (Auto) 0.7, Monocytes # (Auto) 0.1, Eosinophils # (Auto) 0.0, Basophils # (Auto) 0.0, Sodium Level 126, Potassium Level 4.0, Chloride Level 94, Carbon Dioxide Level 20, Anion Gap 12, Blood Urea Nitrogen 10, Creatinine 0.70, Estimat Glomerular Filtration Rate > 60, BUN/ Creatinine Ratio 14, Glucose Level 141, Calcium Level 7.1, Corrected Calcium 7.7 , Phosphorus Level 2.9, Magnesium Level 1.4, Iron Level 169, Total Iron Binding Capacity See Est TIBC, Unsaturated Iron Binding Capacity 58, Transferrin % Saturation See Est %Sat, Ferritin 1075.5, Total Bilirubin 1.1, Aspartate Amino Transf (AST/SGOT) 35, Alanine Aminotransferase (ALT/SGPT) 17, Alkaline Phosphatase 91, Total Protein 5.0, Total Protein (PEP) 5.0, Albumin 3.3, Protein Electrophoresis Pathologist SEE PATH REPORT, Vitamin B12 Level 634, Folate 3.9, Copper Level 82, Free Ozone Light Chains, Quant 27.40, Free Lambda Light Chains, Quant 20.39, Free Ozone/Lambda Light Chain Ratio 1.34 10/23/18 03:12: White Blood Count 4.9, Red Blood Count 3.31, Hemoglobin 10.8, Hematocrit 30, Mean Corpuscular Volume 89, Mean Corpuscular Hemoglobin 33, Mean Corpuscular Hemoglobin Concent 37, Red Cell Distribution Width 17.3, Platelet Count 50, Mean Platelet Volume 11.4, Neutrophils (%) (Auto) 77, Lymphocytes (%) (Auto) 19 , Monocytes (%) (Auto) 4, Eosinophils (%) (Auto) 0, Basophils (%) (Auto) 0, Neutrophils # (Auto) 3.8, Lymphocytes # (Auto) 0.9, Monocytes # (Auto) 0.2, Eosinophils # (Auto) 0.0, Basophils # (Auto) 0.0, Sodium Level 126, Potassium Level 3.4, Chloride Level 95, Carbon Dioxide Level 17, Anion Gap 14, Blood Urea Nitrogen 8, Creatinine 0.73, Estimat Glomerular Filtration Rate > 60, BUN/ Creatinine Ratio 11, Glucose Level 164, Calcium Level 7.4, Corrected Calcium 7.8 , Phosphorus Level 2.1, Magnesium Level 1.6, Total Bilirubin 1.8, Aspartate Amino Transf (AST/SGOT) 47, Alanine Aminotransferase (ALT/SGPT) 24, Alkaline Phosphatase 101, Total Protein 5.6, Albumin 3.5 10/23/18 20:18: Vancomycin Level Trough 28.8 10/24/18 03:55: White Blood Count 5.7, Red Blood Count 2.91, Hemoglobin 9.5, Hematocrit 26, Mean Corpuscular Volume 89, Mean Corpuscular Hemoglobin 33, Mean Corpuscular Hemoglobin Concent 37, Red Cell Distribution Width 16.6, Platelet Count 54, Mean Platelet Volume 11.1, Neutrophils (%) (Auto) 73, Lymphocytes (%) (Auto) 21 , Monocytes (%) (Auto) 6, Eosinophils (%) (Auto) 0, Basophils (%) (Auto) 0, Neutrophils # (Auto) 4.2, Lymphocytes # (Auto) 1.2, Monocytes # (Auto) 0.3, Eosinophils # (Auto) 0.0, Basophils # (Auto) 0.0, Sodium Level 127, Potassium Level 3.8, Chloride Level 99, Carbon Dioxide Level 17, Anion Gap 11, Blood Urea Nitrogen 8, Creatinine 0.74, Estimat Glomerular Filtration Rate > 60, BUN/ Creatinine Ratio 11, Glucose Level 143, Calcium Level 7.0, Corrected Calcium 7.8 , Phosphorus Level 2.5, Magnesium Level 2.0, Total Bilirubin 0.9, Aspartate Amino Transf (AST/SGOT) 86, Alanine Aminotransferase (ALT/SGPT) 40, Alkaline Phosphatase 102, Total Protein 4.8, Albumin 3.0 10/24/18 08:17: Vancomycin Level Trough 21.1 10/25/18 03:25: White Blood Count 7.7, Red Blood Count 2.99, Hemoglobin 9.8, Hematocrit 27, Mean Corpuscular Volume 89, Mean Corpuscular Hemoglobin 33, Mean Corpuscular Hemoglobin Concent 37, Red Cell Distribution Width 16.6, Platelet Count 59, Mean Platelet Volume 10.0, Neutrophils (%) (Auto) 72, Lymphocytes (%) (Auto) 19 , Monocytes (%) (Auto) 9, Eosinophils (%) (Auto) 0, Basophils (%) (Auto) 0, Neutrophils # (Auto) 5.6, Lymphocytes # (Auto) 1.5, Monocytes # (Auto) 0.7, Eosinophils # (Auto) 0.0, Basophils # (Auto) 0.0, Sodium Level 126, Potassium Level 3.6, Chloride Level 98, Carbon Dioxide Level 16, Anion Gap 12, Blood Urea Nitrogen 9, Creatinine 0.74, Estimat Glomerular Filtration Rate > 60, BUN/ Creatinine Ratio 12, Glucose Level 144, Calcium Level 7.4, Corrected Calcium 8.0 , Phosphorus Level 2.3, Magnesium Level 1.8, Total Bilirubin 1.2, Aspartate Amino Transf (AST/SGOT) 110, Alanine Aminotransferase (ALT/SGPT) 61, Alkaline Phosphatase 115, Total Protein 5.0, Albumin 3.2 10/25/18 08:50: B-Type Natriuretic Peptide 417.0, Vitamin B12 Level 773 10/26/18 03:50: White Blood Count 8.4, Red Blood Count 2.87, Hemoglobin 9.4, Hematocrit 26, Mean Corpuscular Volume 90, Mean Corpuscular Hemoglobin 33, Mean Corpuscular Hemoglobin Concent 36, Red Cell Distribution Width 16.3, Platelet Count 59, Mean Platelet Volume 10.8, Neutrophils (%) (Auto) 78, Lymphocytes (%) (Auto) 12 , Monocytes (%) (Auto) 11, Eosinophils (%) (Auto) 0, Basophils (%) (Auto) 0, Neutrophils # (Auto) 6.5, Lymphocytes # (Auto) 1.0, Monocytes # (Auto) 0.9, Eosinophils # (Auto) 0.0, Basophils # (Auto) 0.0, Neutrophils % (Manual) , Basophilic Stippling , Anisocytosis , Sodium Level 126, Potassium Level 3.7, Chloride Level 95, Carbon Dioxide Level 14, Anion Gap 17, Blood Urea Nitrogen 11 , Creatinine 0.86, Estimat Glomerular Filtration Rate > 60, BUN/Creatinine Ratio 13, Glucose Level 145, Calcium Level 7.7, Corrected Calcium 8.2, Phosphorus Level 2.6, Magnesium Level 1.5, Total Bilirubin 0.9, Aspartate Amino Transf (AST/SGOT) 98, Alanine Aminotransferase (ALT/SGPT) 73, Alkaline Phosphatase 112, Total Protein 5.3, Albumin 3.4, Smear Scan YES 10/27/18 06:22: White Blood Count 6.9, Red Blood Count 2.98, Hemoglobin 9.6, Hematocrit 27, Mean Corpuscular Volume 91, Mean Corpuscular Hemoglobin 32, Mean Corpuscular Hemoglobin Concent 35, Red Cell Distribution Width 17.0, Platelet Count 79, Mean Platelet Volume 11.1, Neutrophils (%) (Auto) 72, Lymphocytes (%) (Auto) 19 , Monocytes (%) (Auto) 7, Eosinophils (%) (Auto) 2, Basophils (%) (Auto) 0, Neutrophils # (Auto) 5.0, Lymphocytes # (Auto) 1.3, Monocytes # (Auto) 0.5, Eosinophils # (Auto) 0.1, Basophils # (Auto) 0.0, Sodium Level 129, Potassium Level 3.4, Chloride Level 95, Carbon Dioxide Level 22, Anion Gap 12, Blood Urea Nitrogen 10, Creatinine 0.73, Estimat Glomerular Filtration Rate > 60, BUN/ Creatinine Ratio 14, Glucose Level 70, Calcium Level 7.8, Corrected Calcium 8.4 , Phosphorus Level 2.6, Magnesium Level 1.8, Total Bilirubin 0.8, Aspartate Amino Transf (AST/SGOT) 115, Alanine Aminotransferase (ALT/SGPT) 83, Alkaline Phosphatase 119, Total Protein 5.1, Albumin 3.2 10/27/18 09:24: Urine Color YELLOW, Urine Clarity CLEAR, Urine pH 6, Urine Specific [place] 1.015, Urine Protein 2+, Urine Glucose (UA) NEGATIVE, Urine Ketones NEGATIVE, Urine Nitrite NEGATIVE, Urine Bilirubin 1+, Urine Urobilinogen 4, Urine Leukocyte Esterase 1+, Urine RBC (Auto) 2+, Urine RBC 10-25, Urine WBC 2-5, Urine Squamous Epithelial Cells RARE, Urine Crystals NONE, Urine Bacteria TRACE , Urine Casts NONE, Urine Mucus SMALL, Urine Culture Indicated YES 10/27/18 12:42: Lab Scanned Report Transfusion Reaction Form 10/28/18 06:45: White Blood Count 4.4, Red Blood Count 2.76, Hemoglobin 9.0, Hematocrit 26, Mean Corpuscular Volume 92, Mean Corpuscular Hemoglobin 33, Mean Corpuscular Hemoglobin Concent 35, Red Cell Distribution Width 16.5, Platelet Count 82, Mean Platelet Volume 11.0, Neutrophils (%) (Auto) 73, Lymphocytes (%) (Auto) 19 , Monocytes (%) (Auto) 7, Eosinophils (%) (Auto) 2, Basophils (%) (Auto) 0, Neutrophils # (Auto) 3.2, Lymphocytes # (Auto) 0.8, Monocytes # (Auto) 0.3, Eosinophils # (Auto) 0.1, Basophils # (Auto) 0.0, Sodium Level 126, Potassium Level 3.3, Chloride Level 94, Carbon Dioxide Level 23, Anion Gap 9, Blood Urea Nitrogen 9, Creatinine 0.69, Estimat Glomerular Filtration Rate > 60, BUN/ Creatinine Ratio 13, Glucose Level 78, Calcium Level 7.4, Corrected Calcium 8.3 , Phosphorus Level 2.8, Magnesium Level 1.7, Total Bilirubin 0.7, Aspartate Amino Transf (AST/SGOT) 100, Alanine Aminotransferase (ALT/SGPT) 74, Alkaline Phosphatase 125, Total Protein 4.5, Albumin 2.9 10/28/18 07:50: Ammonia 19 10/29/18 07:25: White Blood Count 5.1, Red Blood Count 2.66, Hemoglobin 8.5, Hematocrit 25, Mean Corpuscular Volume 93, Mean Corpuscular Hemoglobin 32, Mean Corpuscular Hemoglobin Concent 34, Red Cell Distribution Width 16.6, Platelet Count 101, Mean Platelet Volume 11.1, Neutrophils (%) (Auto) 77, Lymphocytes (%) (Auto) 16 , Monocytes (%) (Auto) 6, Eosinophils (%) (Auto) 1, Basophils (%) (Auto) 0, Neutrophils # (Auto) 3.9, Lymphocytes # (Auto) 0.8, Monocytes # (Auto) 0.3, Eosinophils # (Auto) 0.1, Basophils # (Auto) 0.0, Sodium Level 125, Potassium Level 3.7, Chloride Level 95, Carbon Dioxide Level 22, Anion Gap 8, Blood Urea Nitrogen 10, Creatinine 0.65, Estimat Glomerular Filtration Rate > 60, BUN/ Creatinine Ratio 15, Glucose Level 86, Calcium Level 7.7, Corrected Calcium 8.7 , Phosphorus Level 3.4, Magnesium Level 1.6, Total Bilirubin 0.7, Aspartate Amino Transf (AST/SGOT) 78, Alanine Aminotransferase (ALT/SGPT) 58, Alkaline Phosphatase 110, Total Protein 4.4, Albumin 2.8, Ammonia 29 10/30/18 06:17: White Blood Count 4.6, Red Blood Count 2.45, Hemoglobin 7.9, Hematocrit 23, Mean Corpuscular Volume 94, Mean Corpuscular Hemoglobin 32, Mean Corpuscular Hemoglobin Concent 35, Red Cell Distribution Width 16.2, Platelet Count 108, Mean Platelet Volume 11.7, Neutrophils (%) (Auto) 80, Lymphocytes (%) (Auto) 14 , Monocytes (%) (Auto) 6, Eosinophils (%) (Auto) 1, Basophils (%) (Auto) 0, Neutrophils # (Auto) 3.7, Lymphocytes # (Auto) 0.7, Monocytes # (Auto) 0.3, Eosinophils # (Auto) 0.0, Basophils # (Auto) 0.0 10/30/18 06:19: Sodium Level 127, Potassium Level 3.4, Chloride Level 97, Carbon Dioxide Level 20, Anion Gap 10, Blood Urea Nitrogen 10, Creatinine 0.64, Estimat Glomerular Filtration Rate > 60, BUN/Creatinine Ratio 16, Glucose Level 95, Calcium Level 7.3, Corrected Calcium 8.3, Phosphorus Level 3.4, Magnesium Level 1.6, Total Bilirubin 0.6, Aspartate Amino Transf (AST/SGOT) 67, Alanine Aminotransferase ( ALT/SGPT) 51, Alkaline Phosphatase 118, Total Protein 4.2, Albumin 2.7 10/31/18 06:52: Sodium Level 126, Potassium Level 3.6, Chloride Level 96, Carbon Dioxide Level 20, Anion Gap 10, Blood Urea Nitrogen 11, Creatinine 0.64, Estimat Glomerular Filtration Rate > 60, BUN/Creatinine Ratio 17, Glucose Level 97, Calcium Level 7.2, Corrected Calcium 8.2, Phosphorus Level 3.3, Magnesium Level 1.4, Total Bilirubin 0.7, Aspartate Amino Transf (AST/SGOT) 66, Alanine Aminotransferase ( ALT/SGPT) 44, Alkaline Phosphatase 124, Total Protein 4.2, Albumin 2.8 10/31/18 07:17: White Blood Count 5.0, Red Blood Count 2.39, Hemoglobin 7.4, Hematocrit 22, Mean Corpuscular Volume 94, Mean Corpuscular Hemoglobin 31, Mean Corpuscular Hemoglobin Concent 33, Red Cell Distribution Width 16.3, Platelet Count 118, Mean Platelet Volume 11.2, Neutrophils (%) (Auto) 75, Lymphocytes (%) (Auto) 16 , Monocytes (%) (Auto) 9, Eosinophils (%) (Auto) 1, Basophils (%) (Auto) 0, Neutrophils # (Auto) 3.7, Lymphocytes # (Auto) 0.8, Monocytes # (Auto) 0.4, Eosinophils # (Auto) 0.0, Basophils # (Auto) 0.0 11/02/18 05:26: White Blood Count 3.6, Red Blood Count 2.27, Hemoglobin 7.4, Hematocrit 21, Mean Corpuscular Volume 94, Mean Corpuscular Hemoglobin 33, Mean Corpuscular Hemoglobin Concent 35, Red Cell Distribution Width 15.8, Platelet Count 135, Mean Platelet Volume 11.0, Sodium Level 127, Potassium Level 3.3, Chloride Level 95, Carbon Dioxide Level 24, Anion Gap 8, Blood Urea Nitrogen 11, Creatinine 0.60, Estimat Glomerular Filtration Rate > 60, BUN/Creatinine Ratio 18, Glucose Level 75, Calcium Level 7.4, Corrected Calcium 8.4, Total Bilirubin 0.9, Aspartate Amino Transf (AST/SGOT) 55, Alanine Aminotransferase (ALT/SGPT) 44, Alkaline Phosphatase 107, Total Protein 4.2, Albumin 2.7 11/03/18 05:20: White Blood Count 4.6, Red Blood Count 2.17, Hemoglobin 7.1, Hematocrit 21, Mean Corpuscular Volume 95, Mean Corpuscular Hemoglobin 33, Mean Corpuscular Hemoglobin Concent 35, Red Cell Distribution Width 15.7, Platelet Count 124, Mean Platelet Volume 11.4, Sodium Level 128, Potassium Level 3.3, Chloride Level 97, Carbon Dioxide Level 21, Anion Gap 10, Blood Urea Nitrogen 11, Creatinine 0.62, Estimat Glomerular Filtration Rate > 60, BUN/Creatinine Ratio 18, Glucose Level 93, Calcium Level 7.3, Corrected Calcium 8.5, Total Bilirubin 0.7, Aspartate Amino Transf (AST/SGOT) 46, Alanine Aminotransferase (ALT/SGPT) 36, Alkaline Phosphatase 117, Total Protein 4.1, Albumin 2.5, B-Type Natriuretic Peptide 116.8 11/04/18 04:15: White Blood Count 4.7, Red Blood Count 2.13, Hemoglobin 7.0, Hematocrit 20, Mean Corpuscular Volume 94, Mean Corpuscular Hemoglobin 33, Mean Corpuscular Hemoglobin Concent 35, Red Cell Distribution Width 16.0, Platelet Count 132, Mean Platelet Volume 10.7, Sodium Level 129, Potassium Level 3.5, Chloride Level 93, Carbon Dioxide Level 26, Anion Gap 10, Blood Urea Nitrogen 10, Creatinine 0.61, Estimat Glomerular Filtration Rate > 60, BUN/Creatinine Ratio 16, Glucose Level 82, Calcium Level 7.3 Discharge Home Medications: Active Scripts Active No Active Prescriptions or Reported Medications Instructions to patient/family Please see electronic discharge instructions given to patient. Clinical Quality Measures DVT/VTE Risk/Contraindication: Risk Factor Score Per Nursin RFS Level Per Nursing on Admit: 4+=Very High Contraindications-Pharm: Other *list below* ADEN HERNANDEZ DO Nov 05, 2018 07:38
--- NOTE | 2018-11-08 11:52 | Physician Query Clarification ---
PQ-Further Specificity Admission/Discharge Admission Date: Oct 20, 2018 at 19:00 Discharge Date: Nov 04, 2018 at 11:17 The medical record reflects the following clinical scenario: History/Risk Factors: Sepsis, UTI, ascites Clinical Findings: 10/25 CXR eli pleural effusions, R 20, decreaxed breath sounds, wheezing Treatment: IV Solumedrol 125 mg, IV Lasix 40 mg IV, SVN;s to Q4 Question: Can you further specify if acute respiratory distress or acute respiratory failure per the clinical indicators above? Please document below. 1. Acute respiratory failure 2. Acute respiratory distress 3. Other, with explanation of the clinical findings. 4. Clinically undetermined, no explanation for the clinical findings. PHYSICIAN RESPONSE Can you specify per above: 2 In responding to this query, please exercise your independent professional judgment. The purpose of this communication is to more accurately reflect the complexity of your patients condition. The fact that a question is asked does not imply that any particular answer is desired or expected. Thank you for your timely response to this clarification. Requestors name: Lb THIS PHYSICIAN QUERY FORM IS A PERMANENT PART OF THE MEDICAL RECORD [facility] ASIF Nov 08, 2018 11:51 ADEN HERNANDEZ DO Nov 09, 2018 07:19
== END 2018-11-04 11:17 | DRG 872 ==
LOC: EDUNIT# 17:37 → ER 17:38 → ICU 19:00 → INTOOBSV 19:00 → ICU 19:00 → OBSVTOIN 19:00 → UNDOADMOB 19:00 → 4TH 10-23 12:15 → ICU 10-23 12:15 → UNDODISIN 11-04 11:17
PROVIDERS: ADMIT Family Medicine; ATTEND Family Medicine
PROC: 0TJB8ZZ Inspection of Bladder, Via Natural or Artificial Opening Endoscopic (ICD-10-PCS; principal; 2018-11-02 10:50)
DX: A41.9 Sepsis, unspecified organism (principal); R65.20 Severe sepsis without septic shock; N30.00 Acute cystitis without hematuria; R06.03 Acute respiratory distress; E51.2 Wernicke's encephalopathy; E87.1 Hypo-osmolality and hyponatremia; D61.818 Other pancytopenia; E46 Unspecified protein-calorie malnutrition; Z66 Do not resuscitate; R18.8 Other ascites; J98.11 Atelectasis; K74.60 Unspecified cirrhosis of liver; J44.9 Chronic obstructive pulmonary disease, unspecified; R33.9 Retention of urine, unspecified; F10.20 Alcohol dependence, uncomplicated; F17.210 Nicotine dependence, cigarettes, uncomplicated; E03.9 Hypothyroidism, unspecified; E87.6 Hypokalemia; M54.5 Low back pain; E86.0 Dehydration; M19.91 Primary osteoarthritis, unspecified site; E83.42 Hypomagnesemia; E83.39 Other disorders of phosphorus metabolism; E83.51 Hypocalcemia; B95.2 Enterococcus as the cause of diseases classified elsewhere
CPT/HCPCS: 36415; 51702; 70496; 70498; 71045; 71046; 72100; 74018; 74177; 80048; 80053; 80202; 80306; 80320; 81000; 82140; 82525; 82533; 82607; 82728; 82746; 83540; 83605; 83735; 83880; 83883; 84100; 84155; 84165; 84439; 84443; 84481; 85007; 85025; 85027; 85045; 85610; 85730; 86850; 86900; 86901; 86920; 87040; 87077; 87081; 87088; 87186; 94640; 94644; 94760; 96361; 96374